=== PATIENT | female | born 1935 | race Caucasian/White ===

== ENCOUNTER → 2017-12-30 09:09 | Outpatient (CLI) | payer MEDICARE, SELFPAY ==
[2017-12-30 11:57] LABS: Absolute Lymphocyte Count 1.33 X10^3/ul (0.83-4.51); Absolute Neutrophil Count 4.4 X10^3/uL (2.0-7.7); Basophil# 0.02 X10^3/uL; Basophil% 0.3 % (0-1); Eosinophil# 0.33 X10^3/uL; Eosinophils% 4.9 % (0-5); Hematocrit 40.1 % (37-47); Hemoglobin 12.5 g/dl (12.0-15.0); Lymphocyte # 1.33 X10^3/ul (4.0); Lymphocyte % 19.8 % (19-41); Mean Corp Hgb Conc 31.2 g/gl (32-36); Mean Corpuscular Hgb 30.6 pg (27.0-32.0); Mean Platelet Vol. 12.3 fl (6.2-12.0); Monocyte# 0.63 X10^3/uL; Monocyte% 9.4 % (0-10); Neutrophil # 4.39 X10^3/uL (2.7-7.7); Neutrophil % 65.5 % (47-70); Platelet Count 205 K/mm3 (150-450); RBC Distribution Width CV 13.6 % (11.6-14.6); RBC Distribution Width SD 48.2 fl (35.1-43.9); Red Blood Count 4.09 M/mm3 (4.2-5.4); White Blood Count 6.7 K/mm3 (4.4-11.0)
[2017-12-30 12:00] LABS: POSITIVE COUNT NO; POSITIVE DIFFERENTIAL NO; POSITIVE MORPHOLOGY NO
[2017-12-30 12:26] LABS: AST(SGOT) 15 U/L (15-37); Alanine Aminotransfer ALT/SGPT 21 U/L (13-56); Albumin, Serum 3.9 g/dL (3.2-5.0); Alkaline Phosphatase 88 U/L (45-117); Anion Gap 7 (5-15); BUN 31 mg/dL (7-18); BUN/Creat Ratio 16.1 RATIO (10-20); Chloride 107 mmol/L (98-107); Cholesterol 167 mg/dL (200); Creatinine, Serum 1.93 mg/dL (0.55-1.02); EST Glomerular Filtration Rate 27 mL/min (>60); Est Glom Filt Rate - Afr Amer 32 mL/min (>60); Ferritin 172 ng/mL (8-252); Globulin 3.9 g/dL (2.2-4.2); Glucose 87 mg/dL (74-106); High Density Lipoprotein 63 mg/dL; Potassium 4.6 mmol/L (3.5-5.1); Protein, Total 7.8 g/dL (6.4-8.2); Sodium Level 140 mmol/L (136-145); T4 Free Direct 1.34 ng/dL (0.76-1.46); Thyroid Stim Hormone (TSH) 3.76 uIU/mL (0.358-3.74); Triglycerides 94 mg/dL; Very Low Density Lipoprotein 19 mg/dL (5-40)
[2017-12-30 13:48] LABS: Microalbumin,Random Urine 12.1 mg/L (NO RANGE EST.); Microalbumin:Creatinine Ratio 31.4 mg/g CRE (<30 mg/g CRE)
== END ==
PROVIDERS: Family Provider Family Medicine; PCP Family Medicine; Visit Provider Family Medicine
DX: I10 Essential (primary) hypertension (principal); E78.00 Pure hypercholesterolemia, unspecified; E03.9 Hypothyroidism, unspecified; R68.89 Other general symptoms and signs
CPT/HCPCS: 36415; 80053; 80061; 82043; 82570; 82728; 84439; 84443; 85025

== ENCOUNTER → 2018-04-16 07:55 | Outpatient (CLI) | payer MEDICARE, SELFPAY ==
--- NOTE | 2018-04-16 08:05 | CDU_ITS ---
Reason For Study: Carotid bruit Rt. Velocities/BP Lt. Velocities/BP Prox CCA 69.2/11.0 cm/sec. Prox CCA 78.6/10.6 cm/sec. Mid CCA 57.5/12.3 cm/sec. Mid CCA 80.3/16.4 cm/sec. Dist CCA 62.1/11.7 cm/sec. Dist CCA 61.0/15.2 cm/sec. Prox ICA 297.0/66.0 cm/sec. Prox ICA 326.0/65.5 cm/sec. Mid ICA 157.0/39.3 cm/sec. Mid ICA 134.0/22.0 cm/sec. Dist ICA 69.2/17.0 cm/sec. Dist ICA 92.7/20.2 cm/sec. Rt. ICA/CCA = 5.2. Lt. ICA/CCA = 4.0. Prox ECA 108.0/7.0 cm/sec. Prox ECA 222.0/20.4 cm/sec. Rt. Vert. 54.5/11.7 cm/sec. Lt. Vert. 48.3/13.4 cm/sec. Right Extracranial There is intimal thickening but no significant atherosclerotic plaque noted in the right common carotid artery. There is heterogeneous, irregular atherosclerotic plaque noted in the right internal carotid artery. There is heterogeneous, irregular atherosclerotic plaque noted in the right external carotid artery. Antegrade flow is noted in the right vertebral artery. Left Extracranial There is heterogeneous, irregular atherosclerotic plaque noted in the left common carotid artery. There is heterogeneous, irregular atherosclerotic plaque noted in the left internal carotid artery. There is heterogeneous, irregular atherosclerotic plaque noted in the left external carotid artery. Antegrade flow is noted in the left vertebral artery. Procedure Carotid Duplex [id number]. Exam performed in department. Interpretation Summary Severe (>70%) stenosis right extracranial internal carotid. Severe (>70%) stenosis left extracranial internal carotid. Flow within the vertebral arteries is antegrade bilaterally. Ordering Physician: NATALEE ARROYO Referring Physician: Gilberto Moore MD Performed By: Kecia Mansfield RVT
== END ==
PROVIDERS: Family Provider Family Medicine; PCP Family Medicine; Visit Provider Surgery Vascular Surgery
DX: R09.89 Other specified symptoms and signs involving the circulatory and respiratory systems (principal)
CPT/HCPCS: 93880

== ENCOUNTER 2018-09-28 05:07 | Emergency (ER) | payer MEDICARE, SELFPAY ==
[2018-09-28 05:08] VITALS: BP 171/157; PULSE 58; RESP 16; TEMP 36.6; O2SAT 97; BMI 27.4
--- NOTE | 2018-09-28 05:24 | CT_ITS ---
STUDY: CT ABDOMEN AND PELVIS WITHOUT CONTRAST REASON FOR EXAM: Female, 83 years old. Mid upper abdominal pain after moving would. RADIATION DOSAGE (If Supplied By Facility): CTDIvol = ( 7.13 ) mGy, DLP = ( 336.77 ) mGycm TECHNIQUE: Transaxial images were obtained from the dome of the diaphragm to the symphysis pubis without oral contrast, and without intravenous contrast. Sagittal and coronal images were reconstructed. Individualized dose optimization techniques were used for this CT. COMPARISON: 11/02/2013 and 05/09/2016. FINDINGS: There is a chronic right posterior diaphragmatic hernia with upper extension of fat, but no bowel. There is mild fibrosis or atelectasis in the visualized lung bases. The heart is enlarged. There are coronary artery calcifications. There is elongation of the right lobe of the liver consistent with a Caitlin's lobe. There is small calcified gallstones in an otherwise grossly normal-appearing gallbladder. There is no demonstrated bile duct dilatation. Normal spleen. There are pancreatic calcifications in the distribution of the ducts consistent with chronic pancreatitis. Normal bilateral adrenal glands. The right kidney is severely atrophic. There is mild hydronephrosis of the left kidney, which is also present on both of the previous studies. There is no demonstrated urinary calculus and there is no demonstrated hydroureter. Finding is most likely due to a low-grade chronic ureteropelvic junction obstruction. There is a small hiatal hernia. Assessment of the stomach is otherwise limited by nondistention. Normal small intestine. There are multiple colonic diverticula consistent with diverticulosis. The appendix is seen on axial images 96-99 and it appears normal. There is an infrarenal abdominal aortic aneurysm with maximal AP diameter of 3.3 cm, stable in size and appearance. There is a stent in the abdominal aorta and there are bilateral aortic-common iliac artery stents, which are stable in appearance. Normal inferior vena cava. Normal retroperitoneum. Normal urinary bladder. There is absence of the uterus consistent with a prior hysterectomy. Normal abdominal wall. There is an old compression fracture of the L1 vertebral body, stable in appearance. There are multilevel degenerative changes in the visualized spine. CT/Abdomen/Pelvis without Cont IMPRESSION: Redemonstration of an abdominal aortic aneurysm, with placement of an aortic-bilateral iliac artery stent. The appearance is stable. Chronic pancreatitis, without evidence for acute pancreatitis. Small hiatal hernia. Colonic diverticulosis, without evidence for acute diverticulitis. Severely atrophic right kidney. Mild hydronephrosis of the left kidney without demonstrated urinary calculus. The appearance is stable and this is probably due to a chronic low-grade UPJ obstruction. Gallstones in an otherwise grossly normal-appearing gallbladder. Previous hysterectomy. Right posterior diaphragmatic hernia with upward extension of fat, but no bowel. No evidence for acute pathology. Electronically Signed: Primitivo Pappas MD at 6:22 EST , Service support ,
[2018-09-28] MEDS: Ondansetron 4 MG/2 ML Vial IV (05:31)
[2018-09-28] MEDS: Morphine 2 MG/ML Syringe IV (05:32)
--- NOTE | 2018-09-28 05:33 | ED.DCSUM_ITS ---
- ER Visit Summary Date of Service: 09/28/18 Chief Complaint: Abdominal pain History of Present Illness: The patient is a 83 F presenting with abdominal pain. Patient states that she has been carrying wood for a wood burning stove for the past week. She states that when she sits up she has pain in her abdomen and back. No direct trauma. She denies nausea or vomiting. Denies diarrhea or constipation. Denies chest pain or shortness of breath. Denies fever. Denies headache. Denies other complaints. Physical Examination: Vitals are stable. Patient is afebrile. Alert no acute distress. HEENT exam is unremarkable. Neck is supple. Lungs are clear and equal bilaterally. Heart is regular rate and rhythm. Abdomen is soft nontender nondistended. No guarding or rebound Back: nontender Extremities are unremarkable. Skin is warm and dry. No focal neurologic deficit. Remainder of exam is unremarkable. Emergency Department Course and Treatment: Patient is given morphine, Zofran. CBC, chemistries unremarkable. BUN 26, creatinine 1.58 which is at her baseline. CT abdomen pelvis shows no acute process, abdominal aortic aneurysm is stable. Patient states she has no pain when she is laying still. When she tries to sit up she has pain in her abdominal wall muscles. She is advised to take Tylenol. Advised to follow-up with her primary care physician. Advised return to ED if worsening points Disposition: Discharge home Impression: Abdominal muscle strain This note was generated with [employer] dictation software. It may contain incorrect words, spelling, and punctuation that were not noted in review of the chart prior to signing ED Disposition - Plan for ED Patient: Chief Complaint: Abd Pain Referrals: Gilberto Moore MD [Primary Care Provider] -
[2018-09-28 05:50] LABS: Absolute Lymphocyte Count 1.49 X10^3/ul (0.83-4.51); Absolute Neutrophil Count 4.1 X10^3/uL (2.0-7.7); Basophil# 0.03 X10^3/uL; Basophil% 0.5 % (0-1); Eosinophil# 0.31 X10^3/uL; Eosinophils% 4.7 % (0-5); Hematocrit 37.4 % (37-47); Hemoglobin 11.8 g/dl (12.0-15.0); Lymphocyte # 1.49 X10^3/ul (4.0); Lymphocyte % 22.6 % (19-41); Mean Corp Hgb Conc 31.6 g/gl (32-36); Mean Corpuscular Hgb 31.5 pg (27.0-32.0); Mean Corpuscular Volume 99.7 fL (81-99); Monocyte# 0.62 X10^3/uL; Monocyte% 9.4 % (0-10); Neutrophil # 4.13 X10^3/uL (2.7-7.7); Neutrophil % 62.5 % (47-70); Platelet Count 194 K/mm3 (150-450); RBC Distribution Width CV 14.6 % (11.6-14.6); Red Blood Count 3.75 M/mm3 (4.2-5.4); White Blood Count 6.6 K/mm3 (4.4-11.0)
[2018-09-28 05:53] LABS: POSITIVE COUNT NO; POSITIVE DIFFERENTIAL NO; POSITIVE MORPHOLOGY NO
[2018-09-28 06:02] LABS: Anion Gap 7 (5-15); BUN 26 mg/dL (7-18); BUN/Creat Ratio 16.5 RATIO (10-20); Calcium,Total 9.3 mg/dL (8.5-10.1); Chloride 110 mmol/L (98-107); Creatinine, Serum 1.58 mg/dL (0.55-1.02); EST Glomerular Filtration Rate 33 mL/min (>60); Est Glom Filt Rate - Afr Amer 40 mL/min (>60); Estimated Creatinine Clearance 23.71 ml/min; Glucose 96 mg/dL (74-106); Potassium 4.5 mmol/L (3.5-5.1); Sodium Level 145 mmol/L (136-145)
--- NOTE | 2018-09-28 06:41 | ED.DEP ---
ED Disposition - Plan for ED Patient: Chief Complaint: Abd Pain Instructions: ED Strain Abdominal Muscle Referrals: Gilberto Moore MD [Primary Care Provider] -
[2018-09-28 06:55] VITALS: BP 136/53
[2018-09-28 07:08] VITALS: BP 154/56; PULSE 78; RESP 16; O2SAT 96
== END 2018-09-28 07:10 | disposition home or self-care (01) ==
LOC: ED 05:36
PROVIDERS: Emergency Provider Emergency Medicine; Family Provider Family Medicine; PCP Family Medicine
DX: S39.011A Strain of muscle, fascia and tendon of abdomen, initial encounter (principal); X50.9XXA Other and unspecified overexertion or strenuous movements or postures, initial encounter; Y93.9 Activity, unspecified; Y92.9 Unspecified place or not applicable; Y99.9 Unspecified external cause status; I71.4 Abdominal aortic aneurysm, without rupture; I10 Essential (primary) hypertension; Z79.899 Other long term (current) drug therapy; Z90.710 Acquired absence of both cervix and uterus
CPT/HCPCS: 74176; 80048; 85025; 96374; 96375; 99282; A4216; J2405

== ENCOUNTER 2018-10-04 08:22 | Inpatient (IN) | payer MEDICARE, SELFPAY ==
[2018-10-04 08:24] VITALS: BP 135/62; PULSE 60; RESP 19; TEMP 36.1; O2SAT 95; BMI 27.8
--- NOTE | 2018-10-04 08:47 | EKG12_ITS ---
Test Reason : DYSRHYTHMIA Blood Pressure : / mmHG Vent. Rate : 058 BPM Atrial Rate : 058 BPM P-R Int : 180 ms QRS Dur : 084 ms QT Int : 442 ms P-R-T Axes : 072 017 044 degrees QTc Int : 433 ms Sinus bradycardia Otherwise normal ECG Confirmed by FEDERICA ALLEN, KANDY ([id number]), editor & co founder PRAVEEN ZULETA ([id number] on 10/07/2018 11:14:33 AM Referred By: YULIYA Confirmed By:KANDY STALLWORTH MD
--- NOTE | 2018-10-04 08:53 | RAD_ITS ---
STUDY: X-RAY CHEST REASON FOR EXAM: Female, 83 years old. Weakness. Back pain x1 week. TECHNIQUE: AP upright and lateral views. COMPARISON: None. FINDINGS: Calcified granuloma in the left lower lobe. No confluent infiltrates. No suspicious pulmonary nodules. Blunting of both costophrenic sulci are due to bilateral pleural fluid and/or pleural thickening. Mild cardiomegaly. Normal mediastinum and skip. Normal visualized pulmonary arteries. Mild atherosclerotic calcifications of the thoracic aorta. Pronounced old L1 compression fracture. Moderate T8 compression fracture with at least two thirds loss of the central vertebral body height. Normal visualized ribs, clavicles, and shoulders. Endograft inside the abdominal aorta. RAD/Chest PA and Lateral IMPRESSION: 1. No acute cardiopulmonary pathology. 2. Mild cardiomegaly. 3. Minimal bilateral pleural fluid versus bilateral pleural thickening. Decubitus chest will help clarify if desired. 4. Moderate T8 compression fracture with at least two thirds loss of the central vertebral body height. Age is indeterminate. CT will help clarify if kyphoplasty is a therapeutic consideration. 5. Pronounced old L1 compression fracture. Electronically Signed: Tristan Soriano MD at 9:47 EST , Service support ,
--- NOTE | 2018-10-04 08:57 | ED.DCSUM_ITS ---
- ER Visit Summary Date of Service: 10/04/18 Chief Complaint: Generalized weakness History of Present Illness: The patient is a 83 F history of hypertension, repaired AAA, hiatal hernia, atrophic kidney. Patient states she has had generalized weakness. She was seen in the ER about a week ago and workup was essentially unremarkable. She has had some nausea and vomiting. States that her tongue is blue and what she actually means is there is bruising on the left side of her. She is on no blood thinners. Denies any bruising to her skin. No melena, nosebleeds or hematuria. She denies any dysuria. She denies any fever. States that she is a wood burning stove at home she closed it with another time recently pulled a muscle in the right side of her back. Initially she was on a muscle relaxant her primary care physician's office is now recently is that to [facility]. Physical Examination: Elderly female no acute distress. Accompanied by family. Vital signs are stable and afebrile. Initial blood pressure 135/62. H EENT exam the left side of her tongue is bruised. There are no lacerations. Pupils are round reactive light. No facial droop. Neck nontender. No lymphadenopathy. Lungs clear to auscultation bilaterally. Heart regular rate and rhythm rate about 60. No murmur. Chest wall nontender. Abdomen is soft and nontender. Normal bowel sounds. No peritoneal signs. Nondistended. No right upper quadrant pain. She is moving all 4 extremities. They are neurovascularly intact. She has equal symmetrical family court justice strength. Dorsi and plantar flexion are intact. Calves are nontender without edema or cords. Back she has trouble sitting up due to pain on the right side of her back on the paraspinal soft tissue. There is no ecchymosis or bruising. There are no gross bony deformities to her back. Neurologically she is awake she is alert. She is answering questions and following commands. She has no focal motor deficits. Test Results: Two-view chest x-ray shows chronic changes. Left lower lobe atelectasis. No acute process. Awaiting radiology interpretation. EKG sinus rhythm rate of 58 no signs of ischemia. CBC shows a white count of 15.7. Hemoglobin of 12. Electrolytes show sodium of 126. Anion gap of 20. BUN of 94 and a creatinine of 8.0. Her most recent creatinine 6 days ago was 1.5. Liver enzymes are unremarkable and UA is pending. Emergency Department Course and Treatment: Elderly female with generalized weakness. Patient will be given IV bolus of saline. Treatment Plan: Patient is in new onset acute renal failure. I have already spoken to the hospitalist Dr. Gilberto Branch and he will be down no admit the patient. Disposition: admission Impression: Acute generalized weakness Acute new onset renal failure Hyponatremia Right back pain This note was generated with [employer] dictation software. It may contain incorrect words, spelling, and punctuation that were not noted in review of the chart prior to signing ED Disposition - Plan for ED Patient: Chief Complaint: Weakness Referrals: Gilberto Moore MD [Primary Care Provider] -
[2018-10-04 09:09] LABS: Absolute Lymphocyte Count 0.68 X10^3/ul (0.83-4.51); Absolute Neutrophil Count 13.4 X10^3/uL (2.0-7.7); Hematocrit 37.8 % (37-47); Hemoglobin 12.8 g/dl (12.0-15.0); Lymphocyte # 0.68 X10^3/ul (4.0); Lymphocyte % 4.3 % (19-41); Mean Corp Hgb Conc 33.9 g/gl (32-36); Mean Corpuscular Hgb 31.1 pg (27.0-32.0); Monocyte# 1.68 X10^3/uL; Monocyte% 10.7 % (0-10); Neutrophil # 13.35 X10^3/uL (2.7-7.7); Neutrophil % 84.8 % (47-70); POSITIVE COUNT NO; POSITIVE DIFFERENTIAL YES; POSITIVE MORPHOLOGY NO; Platelet Count 263 K/mm3 (150-450); RBC Distribution Width CV 13.9 % (11.6-14.6); RBC Distribution Width SD 46.6 fl (35.1-43.9); Red Blood Count 4.11 M/mm3 (4.2-5.4); White Blood Count 15.7 K/mm3 (4.4-11.0)
[2018-10-04] MEDS: HYDROcodone Bitartrate/Apap 5/325 Tablet PO (09:09)
[2018-10-04 09:10] LABS: Differential Indicated SCAN CRITERIA MET
[2018-10-04] MEDS: Ondansetron 4 MG/2 ML Vial IV ×2 (09:15→18:15)
[2018-10-04 09:33] LABS: AST(SGOT) 70 U/L (15-37); Alanine Aminotransfer ALT/SGPT 48 U/L (13-56); Albumin, Serum 2.9 g/dL (3.2-5.0); Alkaline Phosphatase 53 U/L (45-117); Anion Gap 20 (5-15); BUN 94 mg/dL (7-18); BUN/Creat Ratio 11.6 RATIO (10-20); Bilirubin, Direct 0.15 mg/dL (0.00-0.30); Chloride 84 mmol/L (98-107); Creatinine, Serum 8.08 mg/dL (0.55-1.02); EST Glomerular Filtration Rate 5 mL/min (>60); Est Glom Filt Rate - Afr Amer 6 mL/min (>60); Estimated Creatinine Clearance 4.64 ml/min; Globulin 4.2 g/dL (2.2-4.2); Glucose 140 mg/dL (74-106); Potassium 4.6 mmol/L (3.5-5.1); Protein, Total 7.1 g/dL (6.4-8.2); Sodium Level 126 mmol/L (136-145)
--- NOTE | 2018-10-04 09:34 | ED.RN ---
LAB RESULTED CREATININE 8.08, PHYSICIAN NOTIFIED
[2018-10-04] MEDS: Morphine 4 MG/ML Syringe IV (10:06)
[2018-10-04] MEDS: 0.9% Normal Saline 1,000 ML 999 ML IV ×2 (10:06→10:07)
--- NOTE | 2018-10-04 10:43 | US_ITS ---
STUDY: RENAL ULTRASOUND - COMPLETE REASON FOR EXAM: Female, 83 years old. Acute renal insufficiency. TECHNIQUE: Ultrasound evaluation of the kidneys was performed with real-time and static diamond-scale imaging. COMPARISON: CT of the abdomen and pelvis dated September 28, 2018. FINDINGS: RIGHT KIDNEY: Right kidney was difficult to visualize secondary to severe renal atrophy. . DISTAL RIGHT URETER: There is non-visualization of the distal right ureter. There is no demonstrated right ureterovesical junction calculus. There is no demonstrated right ureteral jet. LEFT KIDNEY: Normal location of the left kidney, which is normal in size. The left kidney measures 10.4 x 5.7 x 4.2 cm. There is a normal cortex of the left kidney. The renal cortex measures 1.6 cm. There is no left renal mass or cyst. There are no left renal calculi. There is no left hydronephrosis. DISTAL LEFT URETER: There is non-visualization of the distal left ureter. There is no demonstrated left ureterovesical junction calculus. There is no demonstrated left ureteral jet. AORTA: There is obscuration of the abdominal aorta by overlying bowel gas I.V.C.: The IVC is obscured. BLADDER: The urinary bladder was not visualized secondary to Hall catheter. US/Kidney and Bladder IMPRESSION: 1. Nonvisualization of the right kidney secondary to severe atrophy. 2. Normal sonographic appearance of the left kidney. Electronically Signed: Margaret Wright MD at 12:01 EST , Service support ,
[2018-10-04 11:04] VITALS: BP 164/67; PULSE 57; RESP 18; TEMP 36.6; O2SAT 94; BMI 28.6
[2018-10-04 11:20] VITALS: BMI 28.7
--- NOTE | 2018-10-04 11:53 | RAD_ITS ---
STUDY: X-RAY - ABDOMEN/PELVIS REASON FOR EXAM: Female, 83 years old. Abdominal distention with back pain TECHNIQUE: Two AP supine views of the abdomen and pelvis. COMPARISON: CT abdomen and pelvis dated 09/28/2018 FINDINGS: Questionable bibasilar airspace disease Prominent fecal retention in the right hemicolon with gaseous distended loops of transverse colon. No evidence of small bowel obstruction. There is no demonstrated free abdominal air. The visualized liver, spleen and kidneys are grossly normal in size and morphology. Normal soft tissue structures. There are diffuse degenerative changes of the visualized lumbar spine. Aortobiiliac stent graft is noted RAD/Abdomen Single View IMPRESSION: Prominent fecal retention in the right hemicolon with gaseous distended loops of transverse colon. No evidence of small bowel obstruction Electronically Signed: Sree Espinoza DO at 15:33 EST Tel , Service support ,
--- NOTE | 2018-10-04 11:54 | PCM.HP.STD ---
Problem List (1) BRENDA (acute kidney injury) Status: Acute (2) Myalgia Status: Acute (3) Abdominal distention Status: Acute (4) Hyponatremia Status: Acute History of Present Illness Date of Admission: 10/04/18 Chief Complaint: malaise. emesis. The patient is a 83 year old F who was in her normal state of health up until about a week ago. 1 week ago patient was putting wood into a furnace. Afterwards she had back pain. Patient also complained of diffuse myalgias and nausea and vomiting. She presented to the ED and was found to be hyponatremic and with BRENDA with a Creatinin of 8.08, Cr from 09/28 was 1.58. Patient would take NSAIDs rarely, but was advised to stop by her PCP. She received a script for Tramadol. Daughter has noticed bruising on the patient's tongue. Patient denies any seizure history. [] Past Medical History Past Medical History (Chronic Problems): Chronic Problems (Last Reviewed 10/04/18 @ 11:59 by Gilberto Branch DO) Abdominal aortic aneurysm (Chronic) Essential (primary) hypertension (Chronic) HLD (hyperlipidemia) (Chronic) Atherosclerosis of coronary artery of [place] heart without angina pectoris (Chronic) Medical History: Medical History (Last Reviewed 10/04/18 @ 11:59 by Gilberto Branch DO) H/O: hysterectomy (Resolved) Z90.710 Essential (primary) hypertension (Chronic) I10 HLD (hyperlipidemia) (Chronic) E78.5 Atherosclerosis of coronary artery of [place] heart without angina pectoris (Chronic) I25.10 Allergies No Known Allergies Allergy (Verified 10/04/18 08:26) Home Medications: Ambulatory Orders Medication Instructions Recorded Enalapril Maleate [Vasotec] 10 mg PO BID 10/01/14 Levothyroxine [Synthroid] 75 mcg PO DAILY 10/01/14 Pravastatin [Pravachol] 80 mg PO DAILY 10/01/14 Fenofibrate [Lofibra] 54 mg PO BID 02/26/16 Propranolol HCl [Inderal Xl (Beta 120 mg PO DAILY 02/26/16 Kaleb)] Amlodipine [Norvasc] 5 mg PO QHS 09/28/18 Amlodipine Besylate [Norvasc] 10 mg PO DAILY 10/04/18 Aspirin E.C. [Ecotrin] 81 mg PO DAILY@0800 10/04/18 Chlorella 5 capsule PO BID 10/04/18 Cholecalciferol (VIT D3) [Vitamin 1 tab PO DAILY 10/04/18 D3] Fluticasone 0.05% [Flonase Nasal 1 spray NASAL DAILY PRN 10/04/18 [place]] [place]-3/Dha/Epa/Fish Oil [Fish Oil 1 each PO BID 10/04/18 500 mg Softgel] Ubidecarenone [Coq10] 50 mg PO DAILY 10/04/18 Surgical History: Surgical History (Last Updated 10/04/18 @ 11:59 by Gilberto Branch DO) Hx of bladder repair surgery (Resolved) Z98.890 S/P AAA (abdominal aortic aneurysm) repair Z98.890, Z86.79 Psychiatric History: No pertinent psych hx Lives: Alone Smoking Status: Former smoker Tobacco Use: Non-smoker Alcohol: None Drugs: None - *Family History Maternal Family History: Family History (Last Reviewed 10/04/18 @ 11:59 by Gilberto Branch DO) Father No problems noted. Mother Breast cancer Brother No problems noted. Review of Systems Constitutional: Denies: Anorexia, Chills, Fever, Night Sweats Eyes: Denies: Blurred vision, Double vision HEENT: Denies: Head Aches, Sinus Congestion, Sinus Drainage Cardiovascular: Denies: Chest Pain, Palpitations Respiratory: Denies: Cough, Shortness of breath at rest, Sputum production Gastrointestinal: Reports: Abdominal Pain, Diarrhea, Nausea, Vomiting Genitourinary: Denies: Dysuria, Hematuria Musculoskeletal: Reports: - - diffuse myalgias. Denies: Joint Pain, Joint Tenderness Skin: Denies: Rash, Wounds Neurological: Denies: Numbness, Tingling, Focal weakness Psychiatric: Denies: Anxiety, Depression Endocrine: Denies: Change in Body Habitus, Heat/ Cold Intolerance Hematologic/ Lymphatic: Reports: Easy Bruising. Denies: Easy Bleeding, Hx of blood clot Comment: A 10 point review of systems were negative except as mentioned in the history of present illness and the other review of systems. VTE Information - Inpt Only VTE Present on Admission: No VTE Pharm Prophylaxis ordered?: Yes Patient Problems: Active and Suspected Problems (Last Reviewed 10/04/18 @ 11:59 by Gilberto Jopperi, DO) BRENDA (acute kidney injury) (Acute) Myalgia (Acute) Abdominal distention (Acute) Hyponatremia (Acute) - Physical Exam General: Alert, Cooperative, No apparent distress HEENT: Atraumatic, PERRLA, EOMI, Normocephalic Oral: Moist Mucosa, - - bruising noted on both sides of tongue Neck: No Nodes, Thyroid Normal Size and Texture Lungs: Clear to auscultation, Normal air movement, No rhonchi, No wheeze Cardiovascular: Regular rate, Regular Rhythm, Normal S1, Normal S2, No murmurs Abdomen: Bowel Sounds Present, Soft, Non Tender, No Hepato-splenomegaly, Distended Extremities: No clubbing, No cyanosis, No edema, No Calf Tenderness Skin: No rashes, No breakdown Musculoskeletal: No Tenderness to Palpation of Joints or Extremities, No Muscle Wasting Neurological: Cranial nerves II-XII grossly intact, Neuro grossly intact, Motor Exam 5/5 strength throughout Psych/Mental Status: Normal Affect, Appropriate Vital Signs Temp Pulse Resp BP Pulse Ox 36.6 C 57 L 18 164/67 H 94 10/04/18 11:04 10/04/18 11:04 10/04/18 11:04 10/04/18 11:04 10/04/18 11:04 Oxygen Flow Rate (L/min) 2 Oxygen Delivery Method Nasal Cannula Weight: 75.75 kg Body Mass Index (BMI) 28.6 Laboratory Tests Past 24 Hrs 10/04/18 10/04/18 08:55 08:55 WBC 15.7 H RBC 4.11 L Hgb 12.8 Hct 37.8 MCV 92.0 MCH 31.1 MCHC 33.9 RDW 13.9 RDW Differential 46.6 H Plt Count 263 MPV 11.0 Immature Gran % (Auto) 0.200 Neut % (Auto) 84.8 H Lymph % (Auto) 4.3 L [place] % (Auto) 10.7 H Eos % (Auto) 0.0 Baso % (Auto) 0.0 Absolute Neuts (auto) 13.4 H Absolute Lymphs (auto) 0.68 L Total Counted Not Reportable Sodium 126 L Potassium 4.6 Chloride 84 L Carbon Dioxide 22.0 Anion Gap 20 H BUN 94 H Creatinine 8.08 H* Estim Creat Clear Calc 4.64 Est GFR (MDRD) Af Amer 6 L Est GFR (MDRD) Non-Af 5 L BUN/Creatinine Ratio 11.6 Glucose 140 H Calcium 8.0 L Total Bilirubin 0.60 Direct Bilirubin 0.15 AST 70 H ALT 48 Alkaline Phosphatase 53 Total Protein 7.1 Albumin 2.9 L Globulin 4.2 Clinical Impression(s) from Imaging Studies Chest X-Ray 10/04/18 08:53 IMPRESSION: 1. No acute cardiopulmonary pathology. 2. Mild cardiomegaly. 3. Minimal bilateral pleural fluid versus bilateral pleural thickening. Decubitus chest will help clarify if desired. 4. Moderate T8 compression fracture with at least two thirds loss of the central vertebral body height. Age is indeterminate. CT will help clarify if kyphoplasty is a therapeutic consideration. 5. Pronounced old L1 compression fracture. Electronically Signed: Tristan Soriano MD at 9:47 EST , Service support , Assessment/Plan All Active Problems (Last Reviewed 10/04/18 @ 11:59 by Gilberto Branch DO) BRENDA (acute kidney injury) (Acute) Myalgia (Acute) Abdominal distention (Acute) Hyponatremia (Acute) Hx of bladder repair surgery (Resolved) H/O: hysterectomy (Resolved) 1. BRENDA dramatically worsened since the (1.58) maybe prerenal plus ATN did have a CT on the , but was without contrast Plan: IVF renal US urine studies nephrology consult hold nephrotoxic agents 2. Hyponatremia likely due to volume depletion monitor with IVF 3. Myalgias non-specific diffuse myalgias may be due to her putting wood into her furnace. However, with her tongue bruises, I am concerned about seizure Check CPK, MRI brain, EEG 4. Abdominal distention not taut on exam check an xray 5. DVT proph: heparin. Code Visit Inpatient E&M: 56089 Init Hosp L3
--- NOTE | 2018-10-04 11:59 | HP.PCM_ITS ---
Problem List (1) BRENDA (acute kidney injury) Status: Acute (2) Myalgia Status: Acute (3) Abdominal distention Status: Acute (4) Hyponatremia Status: Acute History of Present Illness Date of Admission: 10/04/18 Chief Complaint: malaise. emesis. The patient is a 83 year old F who was in her normal state of health up until about a week ago. 1 week ago patient was putting wood into a furnace. Afterwards she had back pain. Patient also complained of diffuse myalgias and nausea and vomiting. She presented to the ED and was found to be hyponatremic and with BRENDA with a Creatinin of 8.08, Cr from 09/28 was 1.58. Patient would take NSAIDs rarely, but was advised to stop by her PCP. She received a script for Tramadol. Daughter has noticed bruising on the patient's tongue. Patient denies any seizure history. [] Past Medical History Past Medical History (Chronic Problems): Chronic Problems (Last Reviewed 10/04/18 @ 11:59 by Gilberto Branch DO) Abdominal aortic aneurysm (Chronic) Essential (primary) hypertension (Chronic) HLD (hyperlipidemia) (Chronic) Atherosclerosis of coronary artery of [place] heart without angina pectoris (Chronic) Medical History: Medical History (Last Reviewed 10/04/18 @ 11:59 by Gilberto Branch DO) H/O: hysterectomy (Resolved) Z90.710 Essential (primary) hypertension (Chronic) I10 HLD (hyperlipidemia) (Chronic) E78.5 Atherosclerosis of coronary artery of [place] heart without angina pectoris (Chronic) I25.10 Allergies No Known Allergies Allergy (Verified 10/04/18 08:26) Home Medications: Ambulatory Orders Medication Instructions Recorded Enalapril Maleate [Vasotec] 10 mg PO BID 10/01/14 Levothyroxine [Synthroid] 75 mcg PO DAILY 10/01/14 Pravastatin [Pravachol] 80 mg PO DAILY 10/01/14 Fenofibrate [Lofibra] 54 mg PO BID 02/26/16 Propranolol HCl [Inderal Xl (Beta 120 mg PO DAILY 02/26/16 Kaleb)] Amlodipine [Norvasc] 5 mg PO QHS 09/28/18 Amlodipine Besylate [Norvasc] 10 mg PO DAILY 10/04/18 Aspirin E.C. [Ecotrin] 81 mg PO DAILY@0800 10/04/18 Chlorella 5 capsule PO BID 10/04/18 Cholecalciferol (VIT D3) [Vitamin 1 tab PO DAILY 10/04/18 D3] Fluticasone 0.05% [Flonase Nasal 1 spray NASAL DAILY PRN 10/04/18 Mina] [place]-3/Dha/Epa/Fish Oil [Fish Oil 1 each PO BID 10/04/18 500 mg Softgel] Ubidecarenone [Coq10] 50 mg PO DAILY 10/04/18 Surgical History: Surgical History (Last Updated 10/04/18 @ 11:59 by Gilberto Branch DO) Hx of bladder repair surgery (Resolved) Z98.890 S/P AAA (abdominal aortic aneurysm) repair Z98.890, Z86.79 Psychiatric History: No pertinent psych hx Lives: Alone Smoking Status: Former smoker Tobacco Use: Non-smoker Alcohol: None Drugs: None - *Family History Maternal Family History: Family History (Last Reviewed 10/04/18 @ 11:59 by Gilberto Branch DO) Father No problems noted. Mother Breast cancer Brother No problems noted. Review of Systems Constitutional: Denies: Anorexia, Chills, Fever, Night Sweats Eyes: Denies: Blurred vision, Double vision HEENT: Denies: Head Aches, Sinus Congestion, Sinus Drainage Cardiovascular: Denies: Chest Pain, Palpitations Respiratory: Denies: Cough, Shortness of breath at rest, Sputum production Gastrointestinal: Reports: Abdominal Pain, Diarrhea, Nausea, Vomiting Genitourinary: Denies: Dysuria, Hematuria Musculoskeletal: Reports: - - diffuse myalgias. Denies: Joint Pain, Joint Tenderness Skin: Denies: Rash, Wounds Neurological: Denies: Numbness, Tingling, Focal weakness Psychiatric: Denies: Anxiety, Depression Endocrine: Denies: Change in Body Habitus, Heat/ Cold Intolerance Hematologic/ Lymphatic: Reports: Easy Bruising. Denies: Easy Bleeding, Hx of blood clot Comment: A 10 point review of systems were negative except as mentioned in the history of present illness and the other review of systems. VTE Information - Inpt Only VTE Present on Admission: No VTE Pharm Prophylaxis ordered?: Yes Patient Problems: Active and Suspected Problems (Last Reviewed 10/04/18 @ 11:59 by Gilberto Jopperi, DO) BRENDA (acute kidney injury) (Acute) Myalgia (Acute) Abdominal distention (Acute) Hyponatremia (Acute) - Physical Exam General: Alert, Cooperative, No apparent distress HEENT: Atraumatic, PERRLA, EOMI, Normocephalic Oral: Moist Mucosa, - - bruising noted on both sides of tongue Neck: No Nodes, Thyroid Normal Size and Texture Lungs: Clear to auscultation, Normal air movement, No rhonchi, No wheeze Cardiovascular: Regular rate, Regular Rhythm, Normal S1, Normal S2, No murmurs Abdomen: Bowel Sounds Present, Soft, Non Tender, No Hepato-splenomegaly, Distended Extremities: No clubbing, No cyanosis, No edema, No Calf Tenderness Skin: No rashes, No breakdown Musculoskeletal: No Tenderness to Palpation of Joints or Extremities, No Muscle Wasting Neurological: Cranial nerves II-XII grossly intact, Neuro grossly intact, Motor Exam 5/5 strength throughout Psych/Mental Status: Normal Affect, Appropriate Vital Signs Temp Pulse Resp BP Pulse Ox 36.6 C 57 L 18 164/67 H 94 10/04/18 11:04 10/04/18 11:04 10/04/18 11:04 10/04/18 11:04 10/04/18 11:04 Oxygen Flow Rate (L/min) 2 Oxygen Delivery Method Nasal Cannula Weight: 75.75 kg Body Mass Index (BMI) 28.6 Laboratory Tests Past 24 Hrs 10/04/18 10/04/18 08:55 08:55 WBC 15.7 H RBC 4.11 L Hgb 12.8 Hct 37.8 MCV 92.0 MCH 31.1 MCHC 33.9 RDW 13.9 RDW Differential 46.6 H Plt Count 263 MPV 11.0 Immature Gran % (Auto) 0.200 Neut % (Auto) 84.8 H Lymph % (Auto) 4.3 L [place] % (Auto) 10.7 H Eos % (Auto) 0.0 Baso % (Auto) 0.0 Absolute Neuts (auto) 13.4 H Absolute Lymphs (auto) 0.68 L Total Counted Not Reportable Sodium 126 L Potassium 4.6 Chloride 84 L Carbon Dioxide 22.0 Anion Gap 20 H BUN 94 H Creatinine 8.08 H* Estim Creat Clear Calc 4.64 Est GFR (MDRD) Af Amer 6 L Est GFR (MDRD) Non-Af 5 L BUN/Creatinine Ratio 11.6 Glucose 140 H Calcium 8.0 L Total Bilirubin 0.60 Direct Bilirubin 0.15 AST 70 H ALT 48 Alkaline Phosphatase 53 Total Protein 7.1 Albumin 2.9 L Globulin 4.2 Clinical Impression(s) from Imaging Studies Chest X-Ray 10/04/18 08:53 IMPRESSION: 1. No acute cardiopulmonary pathology. 2. Mild cardiomegaly. 3. Minimal bilateral pleural fluid versus bilateral pleural thickening. Decubitus chest will help clarify if desired. 4. Moderate T8 compression fracture with at least two thirds loss of the central vertebral body height. Age is indeterminate. CT will help clarify if kyphoplasty is a therapeutic consideration. 5. Pronounced old L1 compression fracture. Electronically Signed: Tristan Soriano MD at 9:47 EST , Service support , Assessment/Plan All Active Problems (Last Reviewed 10/04/18 @ 11:59 by Gilberto Branch DO) BRENDA (acute kidney injury) (Acute) Myalgia (Acute) Abdominal distention (Acute) Hyponatremia (Acute) Hx of bladder repair surgery (Resolved) H/O: hysterectomy (Resolved) 1. BRENDA * dramatically worsened since the (1.58) * maybe prerenal plus ATN * did have a CT on the , but was without contrast * Plan: * IVF * renal US * urine studies * nephrology consult * hold nephrotoxic agents 2. Hyponatremia * likely due to volume depletion * monitor with IVF 3. Myalgias * non-specific * diffuse myalgias may be due to her putting wood into her furnace. However, with her tongue bruises, I am concerned about seizure * Check CPK, MRI brain, EEG 4. Abdominal distention * not taut on exam * check an xray 5. DVT proph: heparin. Code Visit Inpatient E&M: 86253 Init Hosp L3
[2018-10-04 15:33] VITALS: BP 140/77; PULSE 55; RESP 18; TEMP 36.6; O2SAT 98
[2018-10-04] MEDS: Bisacodyl 5 MG Tablet PO (15:38)
[2018-10-04] MEDS: Heparin Injection (Vial) 5,000 UNIT/ML VIAL 5000 UNIT SC (15:38)
[2018-10-04] MEDS: Acetaminophen 325 MG Tablet 650 MG PO (15:38)
[2018-10-04] MEDS: Propranolol LA 60 MG Capsule 120 MG PO (15:39)
[2018-10-04 15:40] VITALS: O2SAT 96
--- NOTE | 2018-10-04 18:04 | NURSING ---
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 nurse to room. pt sounds wet in her throat, lungs cta, diminished bases. asked pt to cough to clear throat, states she is unable to cough/clear her throat, points to upper sternum/throat area of discomfort. pt slightly diaphoretic, denies jaw/chest/neck pain. pt states she is unable to cough from pain and feels like she is bloated in her abd. pt with slight emesis/spitting. strands of dark red in in emesis. states is having burning in her chest and epigastric chest pain. emesis emptied into toilet for further visualization, some small amount of dark red/coffee ground looking flecks in it. dr lowery aware orders received.
[2018-10-04 18:10] VITALS: BP 165/79; PULSE 58; RESP 20; TEMP 36.6; O2SAT 95
--- NOTE | 2018-10-04 18:11 | EKG12_ITS ---
Test Reason : Blood Pressure : / mmHG Vent. Rate : 058 BPM Atrial Rate : 058 BPM P-R Int : 180 ms QRS Dur : 086 ms QT Int : 456 ms P-R-T Axes : 081 000 014 degrees QTc Int : 447 ms Sinus bradycardia Otherwise normal ECG When compared with ECG of 04-OCT-2018 08:57, MANUAL COMPARISON REQUIRED, DATA IS UNCONFIRMED Confirmed by FEDERICA ALLEN, KANDY ([id number]), editor sound PRAVEEN ZULETA ([id number]) on 10/07/2018 11:36:03 AM Referred By: FADIA Confirmed By:KANDY STALLWORTH MD
[2018-10-04] MEDS: 0.9% NaCl Peripheral Flush Adult/Peds IV (18:15)
[2018-10-04] MEDS: 0.9% Normal Saline 1,000 ML 125 ML IV (18:21)
[2018-10-04 20:28] VITALS: BP 146/74; PULSE 59; RESP 18; TEMP 36.3; O2SAT 92
[2018-10-04 23:54] LABS: Bacteria 0 SEEN /hpf (None Seen); Mucous, Urine 0 SEEN /hpf (<or=2+); Red Blood Cells-Urine 0 SEEN /hpf (0-5)
[2018-10-04 23:58] LABS: Color, Urine Yellow (Yellow); Glucose, Dipstick 50 mg/dl (Normal); Ketone-Dipstick Negative (Negative); Leukocyte Esterase-Dipstick 25 /ul (Negative); Nitrite-Dipstick Negative (Negative); Occult Blood-Urine 25 /ul (Negative); Protein-Dipstick 100 mg/dl (Negative); Urine Bilirubin Dipstick Negative (Negative); Urine Clarity Clear (Clear); Urine Urobilinogen Normal (Normal); Urine pH 6.5 (5.0 - 8.0)
[2018-10-05 00:07] LABS: Squamous Epithelial Cells - UA 25-50 SEEN /hpf (5-10); White Blood Cells 10-25 SEEN /hpf (0-5)
[2018-10-05 00:08] LABS: Urine Sodium 63 mmol/L (Not Establ.)
[2018-10-05 02:38] VITALS: BP 158/86; PULSE 67; RESP 18; TEMP 36.6; O2SAT 94
[2018-10-05] MEDS: 0.9% Normal Saline 1,000 ML 125 ML IV (02:53)
--- NOTE | 2018-10-05 03:29 | PCM.HOSP.N ---
Hospitalist Note Nurse called me that patient has about 150 mL on bladder scan in the morning today and earlier 150 mL last night about 8:50 PM. Patient has oliguria. The patient is being admitted with acute kidney injury of creatinine 8.08, last creatinine from 09/28 was 1.58. UA was positive of pyuria, WBC 10-25 cells, squamous epithelial cells 25-50 cells, LE 25, bacteria 0 although not convincing for UTI but started on IV ceftriaxone with repeat UA and urine culture ordered. Kidneys and bladder ultrasound is ordered. Nephrology consult. Urine studies for electrolytes, protein random, creatinine, BUN and eosinophils have been ordered. Hall catheter ordered to restrict monitoring of urine output. Follow-up urine studies, urine culture.
[2018-10-05 04:25] LABS: Bacteria 0 SEEN /hpf (None Seen); Mucous, Urine 0 SEEN /hpf (<or=2+); Red Blood Cells-Urine 0 SEEN /hpf (0-5); Squamous Epithelial Cells - UA 0 SEEN /hpf (5-10); White Blood Cells 0 SEEN /hpf (0-5)
[2018-10-05] MEDS: Ceftriaxone 1 GM/50 ML BAG IV ×2 (04:31→21:37)
[2018-10-05 04:37] LABS: Color, Urine Yellow (Yellow); Glucose, Dipstick 50 mg/dl (Normal); Ketone-Dipstick Negative (Negative); Leukocyte Esterase-Dipstick Negative /ul (Negative); Nitrite-Dipstick Negative (Negative); Occult Blood-Urine 25 /ul (Negative); Protein-Dipstick 100 mg/dl (Negative); Urine Bilirubin Dipstick Negative (Negative); Urine Chloride 17 mmol/L (Not Establ.); Urine Clarity Clear (Clear); Urine Sodium 65 mmol/L (Not Establ.); Urine Urobilinogen Normal (Normal); Urine pH 6.5 (5.0 - 8.0)
[2018-10-05 04:42] LABS: Urea Nitrogen, Urine 402 mg/dL (NO RANGE EST.)
[2018-10-05 04:48] LABS: Protein, Urine (Random) 126.6 mg/dL (<11.9)
[2018-10-05 04:53] LABS: Osmolality, Urine 312 mOsm/KG
[2018-10-05 06:35] LABS: Absolute Lymphocyte Count 0.58 X10^3/ul (0.83-4.51); Absolute Neutrophil Count 8.9 X10^3/uL (2.0-7.7); Hematocrit 29.9 % (37-47); Hemoglobin 9.8 g/dl (12.0-15.0); Lymphocyte # 0.58 X10^3/ul (4.0); Lymphocyte % 5.6 % (19-41); Mean Corp Hgb Conc 32.8 g/gl (32-36); Mean Corpuscular Hgb 30.8 pg (27.0-32.0); Mean Platelet Vol. 11.3 fl (6.2-12.0); Monocyte# 0.92 X10^3/uL; Monocyte% 8.8 % (0-10); Neutrophil # 8.89 X10^3/uL (2.7-7.7); Neutrophil % 85.4 % (47-70); Platelet Count 231 K/mm3 (150-450); RBC Distribution Width CV 13.9 % (11.6-14.6); RBC Distribution Width SD 48.1 fl (35.1-43.9); Red Blood Count 3.18 M/mm3 (4.2-5.4); White Blood Count 10.4 K/mm3 (4.4-11.0)
[2018-10-05 06:42] LABS: Differential Indicated SCAN CRITERIA MET; POSITIVE COUNT NO; POSITIVE DIFFERENTIAL YES; POSITIVE MORPHOLOGY YES
[2018-10-05 06:50] LABS: Differential Comment SCANNED
[2018-10-05 06:51] LABS: Anion Gap 20 (5-15); BUN 113 mg/dL (7-18); BUN/Creat Ratio 13.8 RATIO (10-20); Calcium,Total 6.4 mg/dL (8.5-10.1); Chloride 94 mmol/L (98-107); EST Glomerular Filtration Rate 5 mL/min (>60); Est Glom Filt Rate - Afr Amer 6 mL/min (>60); Estimated Creatinine Clearance 4.57 ml/min; Glucose 70 mg/dL (74-106); Sodium Level 130 mmol/L (136-145)
[2018-10-05 07:01] LABS: Osmolality, Serum 295 mOsm/KG (280-301)
--- NOTE | 2018-10-05 07:11 | MRI_ITS ---
STUDY: MRI BRAIN WITHOUT CONTRAST REASON FOR EXAM: Female, 83 years old. confusion -- ? seizure. TECHNIQUE: Standardized multiplanar fat and water weighted pulse sequences were obtained. COMPARISON: None. FINDINGS: There is moderate cerebral atrophy with widening of the extra-axial spaces and ventricular dilatation. There are a limited number of small white matter hyperintensities, distributed throughout the deep white matter tracts of the cerebral hemispheres, consistent with mild chronic white matter ischemic changes. Normal bilateral basal ganglia. Normal thalami. There is no extra-axial fluid accumulation. Normal flow voids within the major intracranial circulation suggesting patency by spin echo criteria. Normal sella turcica, pituitary gland, infundibular stalk, optic chiasm and hypothalamus. Normal tectal plate and pineal gland. There are chronic white matter ischemic changes of the [place]. The midbrain and medulla are otherwise normal. Normal cerebellum. Normal basal cisterns. Normal bilateral temporal bones. Normal bilateral internal auditory canals. MRI/Brain without Contrast IMPRESSION: No acute intracranial abnormality or evidence of masses. Electronically Signed: Ashlie Herrera MD at 12:42 EST Tel , Service support ,
[2018-10-05 07:55] VITALS: PULSE 59; RESP 16; O2SAT 92
[2018-10-05 08:20] VITALS: BP 96/47; PULSE 59; RESP 16; TEMP 36.2; O2SAT 92
--- NOTE | 2018-10-05 08:39 | NURSING ---
Voicemail left for daughter as MRI questionnaire needs filled out.
--- NOTE | 2018-10-05 08:51 | EEG ---
- Electroencephalogram This is an 18 channel electroencephalogram performed utilizing the International 10-20 electrode placement protocol as well as EKG reference leads, photic stimulation and hyperventilation on this 83-year-old female with a history of tongue biting which the patient attributes to dentures. Background activity is 9 Hz symmetrically in the posterior leads which attenuates with eye-opening. Hyperventilation is performed but was limited to 1 minute due to poor effort. The hyperventilation phase and post-hyperventilation phase are unremarkable. Wakefulness and sleep were recorded without lateralizing or epileptiform changes. Photic stimulation generates a normal symmetric driving response in the posterior leads. Impression: Normal awake and asleep electroencephalogram.
--- NOTE | 2018-10-05 11:04 | PCM.CONS.R ---
Problem List (1) BRENDA (acute kidney injury) Status: Acute Consultation - Renal PCP/ Referring MD: Requesting physician: [] Primary care physician: Gilberto Moore - History of Present Illness History of Present Illness: The patient is a 83 year old F presented with a one-week history of back pain, nausea vomiting and diffuse myalgia. In the emergency room creatinine was found to be 8.08 mg/dL. Patient's creatinine at baseline is around 1.5 mg deciliter . X-ray shows T8 compression fracture of undetermined age. Renal team was consulted to help in acute kidney injury management . Patient is oliguric . Bladder scan shows 150 cc . Hall catheter was placed last night. Patient had only 150 cc urine output. patient received 2 L of normal saline yesterday. UA showed 114, 25 occult blood, and leukocyte esterase. Patient started and ceftriaxone for presumed UTI diagnosis. I reviewed patient's home medications. Patient was taken enalapril 10 mg twice a day and Norvasc 10 mg p.o. daily . Enalapril is on hold now due to kidney injury. Patient was kept on Norvasc 10 mg p.o. daily. Patient states she took a few of ibuprofen last week. Patient had CAT scan done on September 28 which shows severely atrophic right kidney and mild hydronephrosis in the left side. Review of systems: 12 systems review is negative except severe right flank pain and right lower back pain [] - Allergies Allergies: Allergies No Known Allergies Allergy (Verified 10/04/18 08:26) - Current Medications Current Medications: Current Medications Acetaminophen (Tylenol) 650 mg PO Q4H PRN PRN PRN Reason: PAIN Last Admin: 10/04/18 15:38 Dose: 650 mg Amlodipine Besylate (Norvasc) 10 mg PO DAILY [facility] Last Admin: 10/05/18 08:27 Dose: Not Given Bisacodyl (Dulcolax) 5 mg PO DAILY PRN PRN Reason: Constipation Last Admin: 10/04/18 15:38 Dose: 5 mg Cholecalciferol (Vitamin D) 1,000 unit PO DAILY [facility] Last Admin: 10/05/18 08:28 Dose: Not Given Fluticasone Propionate (Flonase Nasal [place]) 1 spray NASAL DAILY PRN PRN Reason: ALLERGIES Sodium Chloride () 250 mls @ 15 mls/hr IV .[id number] PRN PRN Reason: SALINE FLUSH Pantoprazole Sodium 40 mg/ (Sodium Chloride) 110 mls @ 330 mls/hr IV Q12 [facility] Last Admin: 10/05/18 08:50 Dose: 330 mls/hr Ceftriaxone Sodium (Rocephin) 1 gm in 50 mls @ 100 mls/hr IV QHS [facility] Last Admin: 10/05/18 04:31 Dose: 100 mls/hr Levothyroxine Sodium (Synthroid) 75 mcg PO DAILY@0600 [facility] Last Admin: 10/05/18 05:53 Dose: Not Given Magnesium Hydroxide (Milk Of Magnesia) 30 ml PO DAILY PRN PRN PRN Reason: Constipation Ondansetron HCl (Zofran) 4 mg IV Q6H PRN PRN PRN Reason: NAUSEA/VOMITING Last Admin: 10/04/18 18:15 Dose: 4 mg Polyethylene Glycol (Miralax) 17 gm PO DAILY [facility] Last Admin: 10/05/18 08:27 Dose: Not Given Pravastatin Sodium (Pravachol) 80 mg PO DAILY@2200 [facility] Last Admin: 10/04/18 22:35 Dose: Not Given Propranolol HCl (Inderal La) 120 mg PO DAILY [facility] Last Admin: 10/05/18 08:27 Dose: Not Given Sodium Chloride () 5 - 30 ml IV UD PRN PRN Reason: SALINE FLUSH Last Admin: 10/04/18 18:15 Dose: 10 ml - Past Medical History Past Medical History (Chronic Problems): Chronic Problems (Last Reviewed 10/04/18 @ 11:59 by Gilberto Branch DO) Abdominal aortic aneurysm (Chronic) Essential (primary) hypertension (Chronic) HLD (hyperlipidemia) (Chronic) Atherosclerosis of coronary artery of [place] heart without angina pectoris (Chronic) - Social History Smoking Status: Former smoker Alcohol: None Drugs: None - Family History Maternal Family History: Family History (Last Reviewed 10/04/18 @ 11:59 by Gilberto Branch DO) Father No problems noted. Mother Breast cancer Brother No problems noted. Patient Problems: Active and Suspected Problems (Last Reviewed 10/04/18 @ 11:59 by Gilberto Branch DO) BRENDA (acute kidney injury) (Acute) Myalgia (Acute) Abdominal distention (Acute) Hyponatremia (Acute) - Physical Exam General: Alert, Oriented x3 HEENT: Atraumatic Oral: Moist Mucosa Neck: Supple, No JVD Lungs: Clear to auscultation Cardiovascular: Regular rate, Regular Rhythm, Normal S1, Normal S2 Abdomen: Bowel Sounds Present, Soft, Non Tender, - - Right flank pain Extremities: No clubbing, No cyanosis, No edema Skin: No rashes Musculoskeletal: No Tenderness to Palpation of Joints or Extremities Lymphatic: No Cervical, Supraclavicular, or Inguinal Adenopathy Neurological: Cranial nerves II-XII grossly intact, Neuro grossly intact Psych/Mental Status: Normal Affect Vital Signs Temp Pulse Resp BP Pulse Ox 97.2 F L 59 L 16 96/47 L 92 10/05/18 08:20 10/05/18 08:20 10/05/18 08:20 10/05/18 08:20 10/05/18 08:20 Oxygen Flow Rate (L/min) 2 Oxygen Delivery Method Nasal Cannula Weight: 75.75 kg Body Mass Index (BMI) 28.6 Intake and Output for Last 24 Hours 10/03/18 10/04/18 10/05/18 23:59 23:59 23:59 Intake Total 997 / 997 1915 / 1915 Output Total 280 / 280 Balance 997 / 997 1635 / 1635 Laboratory Tests Past 24 Hrs 10/04/18 10/04/18 10/04/18 23:40 23:40 23:40 WBC RBC Hgb Hct MCV MCH MCHC RDW RDW Differential Plt Count MPV Immature Gran % (Auto) Neut % (Auto) Lymph % (Auto) Hand % (Auto) Eos % (Auto) Baso % (Auto) Absolute Neuts (auto) Absolute Lymphs (auto) Total Counted Differential Comment Eos Smear Total Cells Pending Sodium Potassium Chloride Carbon Dioxide Anion Gap BUN Creatinine Estim Creat Clear Calc Est GFR (MDRD) Af Amer Est GFR (MDRD) Non-Af BUN/Creatinine Ratio Glucose Serum Osmolality Calcium CK Isoenzymes CK-MM (CK-3) CK-MB (CK-2) CK-BB (CK-1) Urine Color Yellow Urine Clarity Clear Urine pH 6.5 Ur Specific [place] 1.010 Urine Protein 100 H Urine Glucose (UA) 50 H Urine Ketones Negative Urine Occult Blood 25 H Urine Nitrite Negative Urine Bilirubin Negative Urine Urobilinogen Normal Ur Leukocyte Esterase 25 H Urine RBC 0 SEEN Urine WBC 10-25 SEEN Ur Squamous Epith Cells 25-50 SEEN Urine Bacteria 0 SEEN Urine Mucus 0 SEEN Urine Osmolality U Random Total Protein Ur Random Sodium Urine Creatinine 49.70 Urine Potassium Urine Chloride Urine Urea Nitrogen 10/04/18 10/05/18 10/05/18 23:40 04:10 04:10 WBC RBC Hgb Hct MCV MCH MCHC RDW RDW Differential Plt Count MPV Immature Gran % (Auto) Neut % (Auto) Lymph % (Auto) Hand % (Auto) Eos % (Auto) Baso % (Auto) Absolute Neuts (auto) Absolute Lymphs (auto) Total Counted Differential Comment Eos Smear Total Cells Sodium Potassium Chloride Carbon Dioxide Anion Gap BUN Creatinine Estim Creat Clear Calc Est GFR (MDRD) Af Amer Est GFR (MDRD) Non-Af BUN/Creatinine Ratio Glucose Serum Osmolality Calcium CK Isoenzymes CK-MM (CK-3) CK-MB (CK-2) CK-BB (CK-1) Urine Color Urine Clarity Urine pH Ur Specific [place] Urine Protein Urine Glucose (UA) Urine Ketones Urine Occult Blood Urine Nitrite Urine Bilirubin Urine Urobilinogen Ur Leukocyte Esterase Urine RBC Urine WBC Ur Squamous Epith Cells Urine Bacteria Urine Mucus Urine Osmolality 312 U Random Total Protein Ur Random Sodium 63 Urine Creatinine 48.10 Urine Potassium Urine Chloride Urine Urea Nitrogen 10/05/18 10/05/18 10/05/18 04:10 04:10 04:10 WBC RBC Hgb Hct MCV MCH MCHC RDW RDW Differential Plt Count MPV Immature Gran % (Auto) Neut % (Auto) Lymph % (Auto) Hand % (Auto) Eos % (Auto) Baso % (Auto) Absolute Neuts (auto) Absolute Lymphs (auto) Total Counted Differential Comment Eos Smear Total Cells Sodium Potassium Chloride Carbon Dioxide Anion Gap BUN Creatinine Estim Creat Clear Calc Est GFR (MDRD) Af Amer Est GFR (MDRD) Non-Af BUN/Creatinine Ratio Glucose Serum Osmolality Calcium CK Isoenzymes CK-MM (CK-3) CK-MB (CK-2) CK-BB (CK-1) Urine Color Yellow Urine Clarity Clear Urine pH 6.5 Ur Specific [place] 1.010 Urine Protein 100 H Urine Glucose (UA) 50 H Urine Ketones Negative Urine Occult Blood 25 H Urine Nitrite Negative Urine Bilirubin Negative Urine Urobilinogen Normal Ur Leukocyte Esterase Negative Urine RBC 0 SEEN Urine WBC 0 SEEN Ur Squamous Epith Cells 0 SEEN Urine Bacteria 0 SEEN Urine Mucus 0 SEEN Urine Osmolality U Random Total Protein 126.6 H Ur Random Sodium 65 Urine Creatinine Urine Potassium 16.0 Urine Chloride 17 Urine Urea Nitrogen 10/05/18 10/05/18 10/05/18 04:10 05:24 05:24 WBC 10.4 RBC 3.18 L Hgb 9.8 L Hct 29.9 L MCV 94.0 MCH 30.8 MCHC 32.8 RDW 13.9 RDW Differential 48.1 H Plt Count 231 MPV 11.3 Immature Gran % (Auto) 0.200 Neut % (Auto) 85.4 H Lymph % (Auto) 5.6 L Hand % (Auto) 8.8 Eos % (Auto) 0.0 Baso % (Auto) 0.0 Absolute Neuts (auto) 8.9 H Absolute Lymphs (auto) 0.58 L Total Counted Not Reportable Differential Comment SCANNED Eos Smear Total Cells Sodium 130 L Potassium 5.0 Chloride 94 L Carbon Dioxide 16.0 L Anion Gap 20 H BUN 113 H* Creatinine 8.20 H* Estim Creat Clear Calc 4.57 Est GFR (MDRD) Af Amer 6 L Est GFR (MDRD) Non-Af 5 L BUN/Creatinine Ratio 13.8 Glucose 70 L Serum Osmolality Calcium 6.4 L* CK Isoenzymes CK-MM (CK-3) CK-MB (CK-2) CK-BB (CK-1) Urine Color Urine Clarity Urine pH Ur Specific [place] Urine Protein Urine Glucose (UA) Urine Ketones Urine Occult Blood Urine Nitrite Urine Bilirubin Urine Urobilinogen Ur Leukocyte Esterase Urine RBC Urine WBC Ur Squamous Epith Cells Urine Bacteria Urine Mucus Urine Osmolality U Random Total Protein Ur Random Sodium Urine Creatinine Urine Potassium Urine Chloride Urine Urea Nitrogen 402 10/05/18 10/05/18 05:24 05:24 WBC RBC Hgb Hct MCV MCH MCHC RDW RDW Differential Plt Count MPV Immature Gran % (Auto) Neut % (Auto) Lymph % (Auto) Hand % (Auto) Eos % (Auto) Baso % (Auto) Absolute Neuts (auto) Absolute Lymphs (auto) Total Counted Differential Comment Eos Smear Total Cells Sodium Potassium Chloride Carbon Dioxide Anion Gap BUN Creatinine Estim Creat Clear Calc Est GFR (MDRD) Af Amer Est GFR (MDRD) Non-Af BUN/Creatinine Ratio Glucose Serum Osmolality 295 Calcium CK Isoenzymes Pending CK-MM (CK-3) Pending CK-MB (CK-2) Pending CK-BB (CK-1) Pending Urine Color Urine Clarity Urine pH Ur Specific [place] Urine Protein Urine Glucose (UA) Urine Ketones Urine Occult Blood Urine Nitrite Urine Bilirubin Urine Urobilinogen Ur Leukocyte Esterase Urine RBC Urine WBC Ur Squamous Epith Cells Urine Bacteria Urine Mucus Urine Osmolality U Random Total Protein Ur Random Sodium Urine Creatinine Urine Potassium Urine Chloride Urine Urea Nitrogen Assessment/Plan All Active Problems (Last Reviewed 10/04/18 @ 11:59 by Gilberto Branch DO) BRENDA (acute kidney injury) (Acute) Myalgia (Acute) Abdominal distention (Acute) Hyponatremia (Acute) Hx of bladder repair surgery (Resolved) H/O: hysterectomy (Resolved) 1-acute kidney injury on chronic kidney disease. Baseline creatinine 1.58 mg/dL. Chronic kidney disease is presumably from nephrosclerosis due to hypertension and aging. UA showed 100 protein, 25 occult blood.FeNa 8.5% suggesting post renal obstruction. CAT scan from last week showed severely atrophic right kidney and mild left-sided hydronephrosis. other diagnosis would be ATN. I doubt prerenal since FeNa is more than 1% and Cr did not improve with IV fluid Renal ultrasound was done yesterday. Reading is pending. Patient currently is oliguric, creatinine continues to rise 2 L of normal saline Patient needs hemodialysis for metabolic support. I will consult Dr. Del Angel for temporary hemodialysis access placement. I will start hemodialysis after placing the line for 2 hours today, blood flow rate 200. Dialysate flow rate 400 ultrafiltration 1 L. If kidney ultrasound shows worsening hydronephrosis, please consult urology team . Please continue holding enalapril. Keep mean arterial pressure more than 65. We will continue to monitor for kidney function recovery. [id number]. Mild. Was due to dehydration. Sodium improved to 130 with 2 L of normal saline. We will continue to monitor sodium level. 3 -HTN: Blood pressure is well controlled. Please continue holding enalapril. Continue Norvasc 4-lower right side back pain. X-ray showed compression fracture at T8 level. Control as per the primary service Thank you for the consult. Renal team will continue to follow. Plan of care was discussed with the patient and her daughter at bedside. Discussed with Dr.Terelestky Nara Ramirez MD
--- NOTE | 2018-10-05 11:15 | CON.PCM_ITS ---
Problem List (1) BRENDA (acute kidney injury) Status: Acute Consultation - Renal PCP/ Referring MD: Requesting physician: [] Primary care physician: Gilberto Moore - History of Present Illness History of Present Illness: The patient is a 83 year old F presented with a one-week history of back pain, nausea vomiting and diffuse myalgia. In the emergency room creatinine was found to be 8.08 mg/dL. Patient's creatinine at baseline is around 1.5 mg deciliter . X-ray shows T8 compression fracture of undetermined age. Renal team was consulted to help in acute kidney injury management . Patient is oliguric . Bladder scan shows 150 cc . Hall catheter was placed last night. Patient had only 150 cc urine output. patient received 2 L of normal saline yesterday. UA showed 114, 25 occult blood, and leukocyte esterase. Patient started and ceftriaxone for presumed UTI diagnosis. I reviewed patient's home medications. Patient was taken enalapril 10 mg twice a day and Norvasc 10 mg p.o. daily . Enalapril is on hold now due to kidney injury. Patient was kept on Norvasc 10 mg p.o. daily. Patient states she took a few of ibuprofen last week. Patient had CAT scan done on September 28 which shows severely atrophic right kidney and mild hydronephrosis in the left side. Review of systems: 12 systems review is negative except severe right flank pain and right lower back pain [] - Allergies Allergies: Allergies No Known Allergies Allergy (Verified 10/04/18 08:26) - Current Medications Current Medications: Current Medications Acetaminophen (Tylenol) 650 mg PO Q4H PRN PRN PRN Reason: PAIN Last Admin: 10/04/18 15:38 Dose: 650 mg Amlodipine Besylate (Norvasc) 10 mg PO DAILY [facility] Last Admin: 10/05/18 08:27 Dose: Not Given Bisacodyl (Dulcolax) 5 mg PO DAILY PRN PRN Reason: Constipation Last Admin: 10/04/18 15:38 Dose: 5 mg Cholecalciferol (Vitamin D) 1,000 unit PO DAILY [facility] Last Admin: 10/05/18 08:28 Dose: Not Given Fluticasone Propionate (Flonase Nasal [place]) 1 spray NASAL DAILY PRN PRN Reason: ALLERGIES Sodium Chloride () 250 mls @ 15 mls/hr IV .[id number] PRN PRN Reason: SALINE FLUSH Pantoprazole Sodium 40 mg/ (Sodium Chloride) 110 mls @ 330 mls/hr IV Q12 [facility] Last Admin: 10/05/18 08:50 Dose: 330 mls/hr Ceftriaxone Sodium (Rocephin) 1 gm in 50 mls @ 100 mls/hr IV QHS [facility] Last Admin: 10/05/18 04:31 Dose: 100 mls/hr Levothyroxine Sodium (Synthroid) 75 mcg PO DAILY@0600 [facility] Last Admin: 10/05/18 05:53 Dose: Not Given Magnesium Hydroxide (Milk Of Magnesia) 30 ml PO DAILY PRN PRN PRN Reason: Constipation Ondansetron HCl (Zofran) 4 mg IV Q6H PRN PRN PRN Reason: NAUSEA/VOMITING Last Admin: 10/04/18 18:15 Dose: 4 mg Polyethylene Glycol (Miralax) 17 gm PO DAILY [facility] Last Admin: 10/05/18 08:27 Dose: Not Given Pravastatin Sodium (Pravachol) 80 mg PO DAILY@2200 [facility] Last Admin: 10/04/18 22:35 Dose: Not Given Propranolol HCl (Inderal La) 120 mg PO DAILY [facility] Last Admin: 10/05/18 08:27 Dose: Not Given Sodium Chloride () 5 - 30 ml IV UD PRN PRN Reason: SALINE FLUSH Last Admin: 10/04/18 18:15 Dose: 10 ml - Past Medical History Past Medical History (Chronic Problems): Chronic Problems (Last Reviewed 10/04/18 @ 11:59 by Gilberto Branch DO) Abdominal aortic aneurysm (Chronic) Essential (primary) hypertension (Chronic) HLD (hyperlipidemia) (Chronic) Atherosclerosis of coronary artery of [place] heart without angina pectoris (Chronic) - Social History Smoking Status: Former smoker Alcohol: None Drugs: None - Family History Maternal Family History: Family History (Last Reviewed 10/04/18 @ 11:59 by Gilberto Branch DO) Father No problems noted. Mother Breast cancer Brother No problems noted. Patient Problems: Active and Suspected Problems (Last Reviewed 10/04/18 @ 11:59 by Herminio Ovalle) BRENDA (acute kidney injury) (Acute) Myalgia (Acute) Abdominal distention (Acute) Hyponatremia (Acute) - Physical Exam General: Alert, Oriented x3 HEENT: Atraumatic Oral: Moist Mucosa Neck: Supple, No JVD Lungs: Clear to auscultation Cardiovascular: Regular rate, Regular Rhythm, Normal S1, Normal S2 Abdomen: Bowel Sounds Present, Soft, Non Tender, - - Right flank pain Extremities: No clubbing, No cyanosis, No edema Skin: No rashes Musculoskeletal: No Tenderness to Palpation of Joints or Extremities Lymphatic: No Cervical, Supraclavicular, or Inguinal Adenopathy Neurological: Cranial nerves II-XII grossly intact, Neuro grossly intact Psych/Mental Status: Normal Affect Vital Signs Temp Pulse Resp BP Pulse Ox 97.2 F L 59 L 16 96/47 L 92 10/05/18 08:20 10/05/18 08:20 10/05/18 08:20 10/05/18 08:20 10/05/18 08:20 Oxygen Flow Rate (L/min) 2 Oxygen Delivery Method Nasal Cannula Weight: 75.75 kg Body Mass Index (BMI) 28.6 Intake and Output for Last 24 Hours 10/03/18 10/04/18 10/05/18 23:59 23:59 23:59 Intake Total 997 / 997 1915 / 1915 Output Total 280 / 280 Balance 997 / 997 1635 / 1635 Laboratory Tests Past 24 Hrs 10/04/18 10/04/18 10/04/18 23:40 23:40 23:40 WBC RBC Hgb Hct MCV MCH MCHC RDW RDW Differential Plt Count MPV Immature Gran % (Auto) Neut % (Auto) Lymph % (Auto) [place] % (Auto) Eos % (Auto) Baso % (Auto) Absolute Neuts (auto) Absolute Lymphs (auto) Total Counted Differential Comment Eos Smear Total Cells Pending Sodium Potassium Chloride Carbon Dioxide Anion Gap BUN Creatinine Estim Creat Clear Calc Est GFR (MDRD) Af Amer Est GFR (MDRD) Non-Af BUN/Creatinine Ratio Glucose Serum Osmolality Calcium CK Isoenzymes CK-MM (CK-3) CK-MB (CK-2) CK-BB (CK-1) Urine Color Yellow Urine Clarity Clear Urine pH 6.5 Ur Specific [place] 1.010 Urine Protein 100 H Urine Glucose (UA) 50 H Urine Ketones Negative Urine Occult Blood 25 H Urine Nitrite Negative Urine Bilirubin Negative Urine Urobilinogen Normal Ur Leukocyte Esterase 25 H Urine RBC 0 SEEN Urine WBC 10-25 SEEN Ur Squamous Epith Cells 25-50 SEEN Urine Bacteria 0 SEEN Urine Mucus 0 SEEN Urine Osmolality U Random Total Protein Ur Random Sodium Urine Creatinine 49.70 Urine Potassium Urine Chloride Urine Urea Nitrogen 10/04/18 10/05/18 10/05/18 23:40 04:10 04:10 WBC RBC Hgb Hct MCV MCH MCHC RDW RDW Differential Plt Count MPV Immature Gran % (Auto) Neut % (Auto) Lymph % (Auto) [place] % (Auto) Eos % (Auto) Baso % (Auto) Absolute Neuts (auto) Absolute Lymphs (auto) Total Counted Differential Comment Eos Smear Total Cells Sodium Potassium Chloride Carbon Dioxide Anion Gap BUN Creatinine Estim Creat Clear Calc Est GFR (MDRD) Af Amer Est GFR (MDRD) Non-Af BUN/Creatinine Ratio Glucose Serum Osmolality Calcium CK Isoenzymes CK-MM (CK-3) CK-MB (CK-2) CK-BB (CK-1) Urine Color Urine Clarity Urine pH Ur Specific [place] Urine Protein Urine Glucose (UA) Urine Ketones Urine Occult Blood Urine Nitrite Urine Bilirubin Urine Urobilinogen Ur Leukocyte Esterase Urine RBC Urine WBC Ur Squamous Epith Cells Urine Bacteria Urine Mucus Urine Osmolality 312 U Random Total Protein Ur Random Sodium 63 Urine Creatinine 48.10 Urine Potassium Urine Chloride Urine Urea Nitrogen 10/05/18 10/05/18 10/05/18 04:10 04:10 04:10 WBC RBC Hgb Hct MCV MCH MCHC RDW RDW Differential Plt Count MPV Immature Gran % (Auto) Neut % (Auto) Lymph % (Auto) [place] % (Auto) Eos % (Auto) Baso % (Auto) Absolute Neuts (auto) Absolute Lymphs (auto) Total Counted Differential Comment Eos Smear Total Cells Sodium Potassium Chloride Carbon Dioxide Anion Gap BUN Creatinine Estim Creat Clear Calc Est GFR (MDRD) Af Amer Est GFR (MDRD) Non-Af BUN/Creatinine Ratio Glucose Serum Osmolality Calcium CK Isoenzymes CK-MM (CK-3) CK-MB (CK-2) CK-BB (CK-1) Urine Color Yellow Urine Clarity Clear Urine pH 6.5 Ur Specific [place] 1.010 Urine Protein 100 H Urine Glucose (UA) 50 H Urine Ketones Negative Urine Occult Blood 25 H Urine Nitrite Negative Urine Bilirubin Negative Urine Urobilinogen Normal Ur Leukocyte Esterase Negative Urine RBC 0 SEEN Urine WBC 0 SEEN Ur Squamous Epith Cells 0 SEEN Urine Bacteria 0 SEEN Urine Mucus 0 SEEN Urine Osmolality U Random Total Protein 126.6 H Ur Random Sodium 65 Urine Creatinine Urine Potassium 16.0 Urine Chloride 17 Urine Urea Nitrogen 10/05/18 10/05/18 10/05/18 04:10 05:24 05:24 WBC 10.4 RBC 3.18 L Hgb 9.8 L Hct 29.9 L MCV 94.0 MCH 30.8 MCHC 32.8 RDW 13.9 RDW Differential 48.1 H Plt Count 231 MPV 11.3 Immature Gran % (Auto) 0.200 Neut % (Auto) 85.4 H Lymph % (Auto) 5.6 L [place] % (Auto) 8.8 Eos % (Auto) 0.0 Baso % (Auto) 0.0 Absolute Neuts (auto) 8.9 H Absolute Lymphs (auto) 0.58 L Total Counted Not Reportable Differential Comment SCANNED Eos Smear Total Cells Sodium 130 L Potassium 5.0 Chloride 94 L Carbon Dioxide 16.0 L Anion Gap 20 H BUN 113 H* Creatinine 8.20 H* Estim Creat Clear Calc 4.57 Est GFR (MDRD) Af Amer 6 L Est GFR (MDRD) Non-Af 5 L BUN/Creatinine Ratio 13.8 Glucose 70 L Serum Osmolality Calcium 6.4 L* CK Isoenzymes CK-MM (CK-3) CK-MB (CK-2) CK-BB (CK-1) Urine Color Urine Clarity Urine pH Ur Specific [place] Urine Protein Urine Glucose (UA) Urine Ketones Urine Occult Blood Urine Nitrite Urine Bilirubin Urine Urobilinogen Ur Leukocyte Esterase Urine RBC Urine WBC Ur Squamous Epith Cells Urine Bacteria Urine Mucus Urine Osmolality U Random Total Protein Ur Random Sodium Urine Creatinine Urine Potassium Urine Chloride Urine Urea Nitrogen 402 10/05/18 10/05/18 05:24 05:24 WBC RBC Hgb Hct MCV MCH MCHC RDW RDW Differential Plt Count MPV Immature Gran % (Auto) Neut % (Auto) Lymph % (Auto) [place] % (Auto) Eos % (Auto) Baso % (Auto) Absolute Neuts (auto) Absolute Lymphs (auto) Total Counted Differential Comment Eos Smear Total Cells Sodium Potassium Chloride Carbon Dioxide Anion Gap BUN Creatinine Estim Creat Clear Calc Est GFR (MDRD) Af Amer Est GFR (MDRD) Non-Af BUN/Creatinine Ratio Glucose Serum Osmolality 295 Calcium CK Isoenzymes Pending CK-MM (CK-3) Pending CK-MB (CK-2) Pending CK-BB (CK-1) Pending Urine Color Urine Clarity Urine pH Ur Specific [place] Urine Protein Urine Glucose (UA) Urine Ketones Urine Occult Blood Urine Nitrite Urine Bilirubin Urine Urobilinogen Ur Leukocyte Esterase Urine RBC Urine WBC Ur Squamous Epith Cells Urine Bacteria Urine Mucus Urine Osmolality U Random Total Protein Ur Random Sodium Urine Creatinine Urine Potassium Urine Chloride Urine Urea Nitrogen Assessment/Plan All Active Problems (Last Reviewed 10/04/18 @ 11:59 by Gilberto Branch DO) BRENDA (acute kidney injury) (Acute) Myalgia (Acute) Abdominal distention (Acute) Hyponatremia (Acute) Hx of bladder repair surgery (Resolved) H/O: hysterectomy (Resolved) 1-acute kidney injury on chronic kidney disease. Baseline creatinine 1.58 mg/dL. Chronic kidney disease is presumably from nephrosclerosis due to hypertension and aging. UA showed 100 protein, 25 occult blood.FeNa 8.5% suggesting post renal obstruction. CAT scan from last week showed severely atrophic right kidney and mild left-sided hydronephrosis. other diagnosis would be ATN. I doubt prerenal since FeNa is more than 1% and Cr did not improve with IV fluid Renal ultrasound was done yesterday. Reading is pending. Patient currently is oliguric, creatinine continues to rise 2 L of normal saline Patient needs hemodialysis for metabolic support. I will consult Dr. Del Angel for temporary hemodialysis access placement. I will start hemodialysis after placing the line for 2 hours today, blood flow rate 200. Dialysate flow rate 400 ultrafiltration 1 L. If kidney ultrasound shows worsening hydronephrosis, please consult urology team . Please continue holding enalapril. Keep mean arterial pressure more than 65. We will continue to monitor for kidney function recovery. [id number]. Mild. Was due to dehydration. Sodium improved to 130 with 2 L of normal saline. We will continue to monitor sodium level. 3 -HTN: Blood pressure is well controlled. Please continue holding enalapril. Continue Norvasc 4-lower right side back pain. X-ray showed compression fracture at T8 level. Control as per the primary service Thank you for the consult. Renal team will continue to follow. Plan of care was discussed with the patient and her daughter at bedside. Discussed with Dr.Terelestky Nara Ramirez MD
--- NOTE | 2018-10-05 11:40 | CASEMGMT ---
RN CM Face to Face with patient for initial transition planning/care coordination assessment. RN CM introduced self and role at [facility]. Patient lying in bed, alert and oriented, family at bedside. Patient willing to participate in assessment and is able to answer all questions appropriately. Care providers, pharmacy, and demographics verified. Patient wishes to discharge home with HHC or to SNF if necessary pending coarse of treatment. Patient states she has no further needs or concerns at this time. CM to follow for discharge planning needs that may arise. 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 Transportation: Self or family DME/HHC: Patient has walker, will monitor for oxygen. Disposition Plan: Patient to discharge home with HHC, family support, and follow-up plans in place. Will monitor for home oxygen. Subha CHRISTENSEN, RN, CM
[2018-10-05 11:49] VITALS: BP 115/81; PULSE 59; RESP 20; TEMP 36.3; O2SAT 96
[2018-10-05] MEDS: Morphine 2 MG/ML Syringe IV ×2 (13:36→21:53)
--- NOTE | 2018-10-05 13:49 | PCM.CONS.GEN ---
Problem List (1) BRENDA (acute kidney injury) Status: Acute Reason for Consult Date of Consultation: 10/05/18 Reason for Consultation: Acute renal failure. In need of dialysis. History of Present Illness: The patient is a 83 year old F who presented to the ED with a back sprain. Patient was noted to be in acute renal failure with a creatinine of 8. Patient denies previous renal issues or concerns. She noted within the last week she had a decrease in urine output. Patient denies previous dialysis or catheter placement. She denies previous myocardial infarction, stroke, blood clots. She follows with Dr. Friedman for an abdominal aortic aneurysm which was repaired 15 years ago. She denies daily blood thinners. Past Medical History Past Medical History (Chronic Problems): Chronic Problems (Last Reviewed 10/04/18 @ 11:59 by Gilberto Branch DO) Abdominal aortic aneurysm (Chronic) Essential (primary) hypertension (Chronic) HLD (hyperlipidemia) (Chronic) Atherosclerosis of coronary artery of [place] heart without angina pectoris (Chronic) Medical History: Medical History (Last Reviewed 10/05/18 @ 13:56 by Wilda Alexis PA-C) H/O: hysterectomy (Resolved) Z90.710 Essential (primary) hypertension (Chronic) I10 HLD (hyperlipidemia) (Chronic) E78.5 Atherosclerosis of coronary artery of [place] heart without angina pectoris (Chronic) I25.10 Allergies No Known Allergies Allergy (Verified 10/04/18 08:26) Home Medications: Ambulatory Orders Medication Instructions Recorded Enalapril Maleate [Vasotec] 10 mg PO BID 10/01/14 Levothyroxine [Synthroid] 75 mcg PO DAILY 10/01/14 Pravastatin [Pravachol] 80 mg PO DAILY 10/01/14 Fenofibrate [Lofibra] 54 mg PO BID 02/26/16 Propranolol HCl [Inderal Xl (Beta 120 mg PO DAILY 02/26/16 [place])] Amlodipine [Norvasc] 5 mg PO QHS 09/28/18 Amlodipine Besylate [Norvasc] 10 mg PO DAILY 10/04/18 Aspirin E.C. [Ecotrin] 81 mg PO DAILY@0800 10/04/18 Chlorella 5 capsule PO BID 10/04/18 Cholecalciferol (VIT D3) [Vitamin 1 tab PO DAILY 11/11/18 D3] Fluticasone 0.05% [Flonase Nasal 1 spray NASAL DAILY PRN 10/04/18 [place]] [place]-3/Dha/Epa/Fish Oil [Fish Oil 1 each PO BID 10/04/18 500 mg Softgel] Ubidecarenone [Coq10] 50 mg PO DAILY 10/04/18 Surgical History: Surgical History (Last Reviewed 10/05/18 @ 13:56 by Wilda Alexis PA-C) Hx of bladder repair surgery (Resolved) Z98.890 S/P AAA (abdominal aortic aneurysm) repair Z98.890, Z86.79 Psychiatric History: No pertinent psych hx Lives: Alone Smoking Status: Former smoker Tobacco Use: Non-smoker Alcohol: None Drugs: None - *Family History Maternal Family History: Family History (Last Reviewed 10/05/18 @ 13:56 by Wilda Alexis PA-C) Father No problems noted. Mother Breast cancer Brother No problems noted. Review of Systems Constitutional: Reports: Anorexia, Weakness, Fatigue HEENT: Denies: Head Aches, Sinus Congestion, Sinus Drainage Cardiovascular: Denies: Chest Pain, Palpitations Respiratory: Reports: Shortness of breath at rest. Denies: Cough, Sputum production Gastrointestinal: Denies: Abdominal Pain, Nausea, Vomiting Genitourinary: Reports: Retention Musculoskeletal: Reports: Back Pain Skin: Denies: Rash, Wounds Neurological: Denies: Numbness, Tingling, Focal weakness Psychiatric: Denies: Anxiety, Depression, Homicidal Ideations, Suicidal Ideations Hematologic/ Lymphatic: Denies: Easy Bruising, Easy Bleeding Patient Problems: Active and Suspected Problems (Last Reviewed 10/04/18 @ 11:59 by Gilberto Branch DO) BRENDA (acute kidney injury) (Acute) Myalgia (Acute) Abdominal distention (Acute) Hyponatremia (Acute) - Physical Exam General: Alert, Oriented x3, Cooperative HEENT: Atraumatic, PERRLA, EOMI, Normocephalic Neck: Supple, No JVD, Negative Carotid Bruits Lungs: Clear to auscultation, Normal air movement Cardiovascular: Regular rate, No murmurs Abdomen: Bowel Sounds Present, Soft, Non Tender Extremities: No edema, Capillary Refill Less than 3 Seconds Skin: No rashes, No breakdown Musculoskeletal: No Tenderness to Palpation of Joints or Extremities Neurological: Neuro grossly intact Psych/Mental Status: Normal Affect, Appropriate Vital Signs Temp Pulse Resp BP Pulse Ox 97.4 F L 59 L 20 H 115/81 H 96 10/05/18 11:49 10/05/18 11:49 10/05/18 11:49 10/05/18 11:49 10/05/18 11:49 Oxygen Flow Rate (L/min) 3 Oxygen Delivery Method Nasal Cannula Weight: 167 lb 0.001 oz Body Mass Index (BMI) 28.6 Intake and Output for Last 24 Hours 10/03/18 10/04/18 10/05/18 23:59 23:59 23:59 Intake Total 997 / 997 2283 / 2283 Output Total 280 / 280 Balance 997 / 997 2002 Laboratory Tests Past 24 Hrs 10/04/18 10/04/18 10/04/18 23:40 23:40 23:40 WBC RBC Hgb Hct MCV MCH MCHC RDW RDW Differential Plt Count MPV Immature Gran % (Auto) Neut % (Auto) Lymph % (Auto) [place] % (Auto) Eos % (Auto) Baso % (Auto) Absolute Neuts (auto) Absolute Lymphs (auto) Total Counted Differential Comment Eos Smear Total Cells Pending Sodium Potassium Chloride Carbon Dioxide Anion Gap BUN Creatinine Estim Creat Clear Calc Est GFR (MDRD) Af Amer Est GFR (MDRD) Non-Af BUN/Creatinine Ratio Glucose Serum Osmolality Calcium CK Isoenzymes CK-MM (CK-3) CK-MB (CK-2) CK-BB (CK-1) Urine Color Yellow Urine Clarity Clear Urine pH 6.5 Ur Specific [place] 1.010 Urine Protein 100 H Urine Glucose (UA) 50 H Urine Ketones Negative Urine Occult Blood 25 H Urine Nitrite Negative Urine Bilirubin Negative Urine Urobilinogen Normal Ur Leukocyte Esterase 25 H Urine RBC 0 SEEN Urine WBC 10-25 SEEN Ur Squamous Epith Cells 25-50 SEEN Urine Bacteria 0 SEEN Urine Mucus 0 SEEN Urine Osmolality U Random Total Protein Ur Random Sodium Urine Creatinine 49.70 Urine Potassium Urine Chloride Urine Urea Nitrogen 10/04/18 10/05/18 10/05/18 23:40 04:10 04:10 WBC RBC Hgb Hct MCV MCH MCHC RDW RDW Differential Plt Count MPV Immature Gran % (Auto) Neut % (Auto) Lymph % (Auto) [place] % (Auto) Eos % (Auto) Baso % (Auto) Absolute Neuts (auto) Absolute Lymphs (auto) Total Counted Differential Comment Eos Smear Total Cells Sodium Potassium Chloride Carbon Dioxide Anion Gap BUN Creatinine Estim Creat Clear Calc Est GFR (MDRD) Af Amer Est GFR (MDRD) Non-Af BUN/Creatinine Ratio Glucose Serum Osmolality Calcium CK Isoenzymes CK-MM (CK-3) CK-MB (CK-2) CK-BB (CK-1) Urine Color Urine Clarity Urine pH Ur Specific [place] Urine Protein Urine Glucose (UA) Urine Ketones Urine Occult Blood Urine Nitrite Urine Bilirubin Urine Urobilinogen Ur Leukocyte Esterase Urine RBC Urine WBC Ur Squamous Epith Cells Urine Bacteria Urine Mucus Urine Osmolality 312 U Random Total Protein Ur Random Sodium 63 Urine Creatinine 48.10 Urine Potassium Urine Chloride Urine Urea Nitrogen 10/05/18 10/05/18 10/05/18 04:10 04:10 04:10 WBC RBC Hgb Hct MCV MCH MCHC RDW RDW Differential Plt Count MPV Immature Gran % (Auto) Neut % (Auto) Lymph % (Auto) [place] % (Auto) Eos % (Auto) Baso % (Auto) Absolute Neuts (auto) Absolute Lymphs (auto) Total Counted Differential Comment Eos Smear Total Cells Sodium Potassium Chloride Carbon Dioxide Anion Gap BUN Creatinine Estim Creat Clear Calc Est GFR (MDRD) Af Amer Est GFR (MDRD) Non-Af BUN/Creatinine Ratio Glucose Serum Osmolality Calcium CK Isoenzymes CK-MM (CK-3) CK-MB (CK-2) CK-BB (CK-1) Urine Color Yellow Urine Clarity Clear Urine pH 6.5 Ur Specific [place] 1.010 Urine Protein 100 H Urine Glucose (UA) 50 H Urine Ketones Negative Urine Occult Blood 25 H Urine Nitrite Negative Urine Bilirubin Negative Urine Urobilinogen Normal Ur Leukocyte Esterase Negative Urine RBC 0 SEEN Urine WBC 0 SEEN Ur Squamous Epith Cells 0 SEEN Urine Bacteria 0 SEEN Urine Mucus 0 SEEN Urine Osmolality U Random Total Protein 126.6 H Ur Random Sodium 65 Urine Creatinine Urine Potassium 16.0 Urine Chloride 17 Urine Urea Nitrogen 10/05/18 10/05/18 10/05/18 04:10 05:24 05:24 WBC 10.4 RBC 3.18 L Hgb 9.8 L Hct 29.9 L MCV 94.0 MCH 30.8 MCHC 32.8 RDW 13.9 RDW Differential 48.1 H Plt Count 231 MPV 11.3 Immature Gran % (Auto) 0.200 Neut % (Auto) 85.4 H Lymph % (Auto) 5.6 L [place] % (Auto) 8.8 Eos % (Auto) 0.0 Baso % (Auto) 0.0 Absolute Neuts (auto) 8.9 H Absolute Lymphs (auto) 0.58 L Total Counted Not Reportable Differential Comment SCANNED Eos Smear Total Cells Sodium 130 L Potassium 5.0 Chloride 94 L Carbon Dioxide 16.0 L Anion Gap 20 H BUN 113 H* Creatinine 8.20 H* Estim Creat Clear Calc 4.57 Est GFR (MDRD) Af Amer 6 L Est GFR (MDRD) Non-Af 5 L BUN/Creatinine Ratio 13.8 Glucose 70 L Serum Osmolality Calcium 6.4 L* CK Isoenzymes CK-MM (CK-3) CK-MB (CK-2) CK-BB (CK-1) Urine Color Urine Clarity Urine pH Ur Specific [place] Urine Protein Urine Glucose (UA) Urine Ketones Urine Occult Blood Urine Nitrite Urine Bilirubin Urine Urobilinogen Ur Leukocyte Esterase Urine RBC Urine WBC Ur Squamous Epith Cells Urine Bacteria Urine Mucus Urine Osmolality U Random Total Protein Ur Random Sodium Urine Creatinine Urine Potassium Urine Chloride Urine Urea Nitrogen 402 10/05/18 10/05/18 05:24 05:24 WBC RBC Hgb Hct MCV MCH MCHC RDW RDW Differential Plt Count MPV Immature Gran % (Auto) Neut % (Auto) Lymph % (Auto) [place] % (Auto) Eos % (Auto) Baso % (Auto) Absolute Neuts (auto) Absolute Lymphs (auto) Total Counted Differential Comment Eos Smear Total Cells Sodium Potassium Chloride Carbon Dioxide Anion Gap BUN Creatinine Estim Creat Clear Calc Est GFR (MDRD) Af Amer Est GFR (MDRD) Non-Af BUN/Creatinine Ratio Glucose Serum Osmolality 295 Calcium CK Isoenzymes Pending CK-MM (CK-3) Pending CK-MB (CK-2) Pending CK-BB (CK-1) Pending Urine Color Urine Clarity Urine pH Ur Specific [place] Urine Protein Urine Glucose (UA) Urine Ketones Urine Occult Blood Urine Nitrite Urine Bilirubin Urine Urobilinogen Ur Leukocyte Esterase Urine RBC Urine WBC Ur Squamous Epith Cells Urine Bacteria Urine Mucus Urine Osmolality U Random Total Protein Ur Random Sodium Urine Creatinine Urine Potassium Urine Chloride Urine Urea Nitrogen Assessment/Plan All Active Problems (Last Reviewed 11/11/18 @ 11:59 by Gilberto Branch DO) BRENDA (acute kidney injury) (Acute) Myalgia (Acute) Abdominal distention (Acute) Hyponatremia (Acute) Hx of bladder repair surgery (Resolved) H/O: hysterectomy (Resolved) I have been consulted in conjunction with Dr. Del Angel Impression: Acute renal injury Plan: Patient has been discussed with Dr. Del Angel. Dr. Del Angel will plan to perform a temporary non-tunneled dialysis catheter at bedside. Keep patient NPO. Procedure details, risks and benefits have been explained to the patient. Patient and family have had the opportunity to ask and have questions answered. Patient verbally understands and agrees with the plan. Thank you for allowing me to participate in this patient care. Code Visit Office Visits / Consults: [id number] IP Consult L3
[2018-10-05 14:14] LABS: Pathologist Review Reviewed
--- NOTE | 2018-10-05 14:56 | CHAPLAIN ---
Type of Pastoral Visit _x__ Initial Visit ___ Follow-up Visit ___ On-call Visit ___ General Patient Visit ___ Spiritual Assessment ___ Family Conference ___ Bereavement ___ Rapid Response ___ Code Blue ___ Other (describe below) Pastoral Care Referral From _x__ Patient ___ Family ___ Nurse ___ Physician ___ Yield Engineer ___ Director Of Consumer Marketing ___ Other (describe below) Sacrament/Intervention _x__ Active listening ___ Anointing ___ Spiritism ___ Bereavement ___ Communion ___ Samara exploration ___ _x__ Life review _x__ Prayer ___ Reconciliation ___ Sacrament of Sick ___ Supportive presence ___ Wedding ___ Other (describe below) Pastoral Comments patient responded to questions and was able to give some background of life; however pt showed some difficulty in keeping focused and she repeated herself about her husbands stroke; pt was pleasant and said that a prayer would be nice;
--- NOTE | 2018-10-05 17:47 | OP.PCM_ITS ---
Problem List (1) BRENDA (acute kidney injury) Status: Acute Report of Operation Date of Procedure: 10/05/18 Pre-Operative Diagnosis: Acute kidney injury Post-Operative Diagnosis: Same Surgery/Procedure Performed:: Right internal jugular percutaneous temporary double-lumen dialysis catheter placement Description of Surgical Findings:: Timeout and informed consent was obtained. At the bedside the patient was placed in a supine position. The right neck was prepped with ChloraPrep. Using a sterilized mask down close an ultrasound probe cover I inspected the right neck that identify the right internal jugular vein. Under ultrasound guidance 1% lidocaine was instilled as local anesthetic. A singlewall needle was advanced into the right internal jugular vein followed by uncomplicated Seldinger wire advancement. The tract was serially dilated. The 16 [place] double-lumen dialysis catheter was easily advanced over the wire. The wire was removed. The catheter ends were secured. The catheter was secured to the neck with interrupted 3-0 nylon. Sterile dressings were applied. The catheter was aspirated easily and were flushed with saline and subsequently heparinized saline. Blood loss was minimal no apparent complication she tolerated the procedure well. Stat portable chest x-ray is pending. Impression successfully placed right internal jugular percutaneous temporary d ialysis catheters Gideon Del Angel M.D., F.A.C.S. Type of Anesthesia:: Local
--- NOTE | 2018-10-05 17:49 | RAD_ITS ---
STUDY: X-RAY CHEST REASON FOR EXAM: Female, 83 years old. Post dialysis port placement. TECHNIQUE: Single AP portable semierect view of the chest. COMPARISON: AP upright and lateral chest x-ray October 04, 2018. FINDINGS: New right central venous catheter entering from the neck has its tip in the superior vena cava. No pneumothorax. Blunting of the lateral costophrenic sulci again noted. Stable calcified granuloma in the lateral left lung base. Subsegmental volume loss suggested in the lateral lung bases as well. There is stable mild cardiac enlargement. Normal mediastinum and skip. Normal visualized pulmonary arteries. There is stable atherosclerotic calcification of the aortic arch. Normal visualized thoracic spine. Normal visualized ribs, clavicles, and shoulders. The proximal margin of an aortic stent graft is incidentally noted at the bottom of the field of view. RAD/CXR for Line Placement IMPRESSION: 1. Right central venous/dialysis catheter in place. No pneumothorax. 2. Stable cardiac enlargement. No CHF. 3. Stable calcified left base granuloma as well as blunting of the bilateral osteoporotic sulci. 4. Minor bibasilar subsegmental volume loss. Electronically Signed: Rashaun Hathaway MD at 18:41 EST , Service support ,
[2018-10-05 18:15] VITALS: BP 112/47; PULSE 59; RESP 20; TEMP 36.5; O2SAT 95
--- NOTE | 2018-10-05 20:17 | PN_ITS ---
Patient Problems: Active and Suspected Problems (Last Reviewed 10/05/18 @ 13:56 by Wilda Alexis PA-C) BRENDA (acute kidney injury) (Acute) Myalgia (Acute) Abdominal distention (Acute) Hyponatremia (Acute) Subjective: Patient was seen and examined today, she had an ultrasound of her kidneys performed, her right kidney was atrophic, her left kidney showed no evidence of hydronephrosis. I discussed her medical care with nephrology today as well as general surgery, a temporary dialysis catheter was placed today. Patient's daughter and were in her room this morning and I briefly talked about her medical care with them also. It is planned that the patient will receive dialysis today after a temporary dialysis catheter is placed later today. - Physical Exam General: Alert, Oriented x3, Cooperative, No apparent distress, Well developed, Well nourished HEENT: Atraumatic, PERRLA, EOMI, Normocephalic Oral: Moist Mucosa Neck: Supple, No Nuchal Rigidity, Trachea Midline, Thyroid Normal Size and Texture Lungs: Clear to auscultation, Normal air movement, No rhonchi, No wheeze, No rales Cardiovascular: Regular rate, Regular Rhythm, Normal S1, Normal S2, No murmurs Abdomen: Bowel Sounds Present, Soft, Non Tender, Non-Distended Extremities: No clubbing, No cyanosis, No edema, Capillary Refill Less than 3 Seconds Skin: No rashes, No breakdown Neurological: Cranial nerves II-XII grossly intact, Neuro grossly intact, Sensory exam intact to light touch and pain, Coordination normal Psych/Mental Status: Normal Affect, Appropriate, - - Patient is alert and appropriate to simple questions Vital Signs Temp Pulse Resp BP Pulse Ox 97.7 F L 59 L 20 H 112/47 L 95 10/05/18 18:15 10/05/18 18:15 10/05/18 18:15 10/05/18 18:15 10/05/18 18:15 Oxygen Flow Rate (L/min) 3 Oxygen Delivery Method Nasal Cannula Weight: 75.75 kg Body Mass Index (BMI) 28.6 Intake and Output for Last 24 Hours 10/03/18 10/04/18 10/05/18 23:59 23:59 23:59 Intake Total 997 / 997 2283 / 2283 Output Total 280 / 280 Balance 997 / 997 2002 Laboratory Tests Past 24 Hrs 10/04/18 10/04/18 10/04/18 08:55 23:40 23:40 WBC RBC Hgb Hct MCV MCH MCHC RDW RDW Differential Plt Count MPV Immature Gran % (Auto) Neut % (Auto) Lymph % (Auto) [place] % (Auto) Eos % (Auto) Baso % (Auto) Absolute Neuts (auto) Absolute Lymphs (auto) Total Counted Differential Comment Diff Path Review Reviewed Eos Smear Total Cells Pending Sodium Potassium Chloride Carbon Dioxide Anion Gap BUN Creatinine Estim Creat Clear Calc Est GFR (MDRD) Af Amer Est GFR (MDRD) Non-Af BUN/Creatinine Ratio Glucose Serum Osmolality Calcium CK Isoenzymes CK-MM (CK-3) CK-MB (CK-2) CK-BB (CK-1) Urine Color Yellow Urine Clarity Clear Urine pH 6.5 Ur Specific [place] 1.010 Urine Protein 100 H Urine Glucose (UA) 50 H Urine Ketones Negative Urine Occult Blood 25 H Urine Nitrite Negative Urine Bilirubin Negative Urine Urobilinogen Normal Ur Leukocyte Esterase 25 H Urine RBC 0 SEEN Urine WBC 10-25 SEEN Ur Squamous Epith Cells 25-50 SEEN Urine Bacteria 0 SEEN Urine Mucus 0 SEEN Urine Osmolality U Random Total Protein Ur Random Sodium Urine Creatinine Urine Potassium Urine Chloride Urine Urea Nitrogen 10/04/18 10/04/18 10/05/18 23:40 23:40 04:10 WBC RBC Hgb Hct MCV MCH MCHC RDW RDW Differential Plt Count MPV Immature Gran % (Auto) Neut % (Auto) Lymph % (Auto) [place] % (Auto) Eos % (Auto) Baso % (Auto) Absolute Neuts (auto) Absolute Lymphs (auto) Total Counted Differential Comment Diff Path Review Eos Smear Total Cells Sodium Potassium Chloride Carbon Dioxide Anion Gap BUN Creatinine Estim Creat Clear Calc Est GFR (MDRD) Af Amer Est GFR (MDRD) Non-Af BUN/Creatinine Ratio Glucose Serum Osmolality Calcium CK Isoenzymes CK-MM (CK-3) CK-MB (CK-2) CK-BB (CK-1) Urine Color Urine Clarity Urine pH Ur Specific [place] Urine Protein Urine Glucose (UA) Urine Ketones Urine Occult Blood Urine Nitrite Urine Bilirubin Urine Urobilinogen Ur Leukocyte Esterase Urine RBC Urine WBC Ur Squamous Epith Cells Urine Bacteria Urine Mucus Urine Osmolality 312 U Random Total Protein Ur Random Sodium 63 Urine Creatinine 49.70 Urine Potassium Urine Chloride Urine Urea Nitrogen 10/05/18 10/05/18 10/05/18 04:10 04:10 04:10 WBC RBC Hgb Hct MCV MCH MCHC RDW RDW Differential Plt Count MPV Immature Gran % (Auto) Neut % (Auto) Lymph % (Auto) [place] % (Auto) Eos % (Auto) Baso % (Auto) Absolute Neuts (auto) Absolute Lymphs (auto) Total Counted Differential Comment Diff Path Review Eos Smear Total Cells Sodium Potassium Chloride Carbon Dioxide Anion Gap BUN Creatinine Estim Creat Clear Calc Est GFR (MDRD) Af Amer Est GFR (MDRD) Non-Af BUN/Creatinine Ratio Glucose Serum Osmolality Calcium CK Isoenzymes CK-MM (CK-3) CK-MB (CK-2) CK-BB (CK-1) Urine Color Yellow Urine Clarity Clear Urine pH 6.5 Ur Specific [place] 1.010 Urine Protein 100 H Urine Glucose (UA) 50 H Urine Ketones Negative Urine Occult Blood 25 H Urine Nitrite Negative Urine Bilirubin Negative Urine Urobilinogen Normal Ur Leukocyte Esterase Negative Urine RBC 0 SEEN Urine WBC 0 SEEN Ur Squamous Epith Cells 0 SEEN Urine Bacteria 0 SEEN Urine Mucus 0 SEEN Urine Osmolality U Random Total Protein 126.6 H Ur Random Sodium Urine Creatinine 48.10 Urine Potassium Urine Chloride Urine Urea Nitrogen 10/05/18 10/05/18 10/05/18 04:10 04:10 05:24 WBC 10.4 RBC 3.18 L Hgb 9.8 L Hct 29.9 L MCV 94.0 MCH 30.8 MCHC 32.8 RDW 13.9 RDW Differential 48.1 H Plt Count 231 MPV 11.3 Immature Gran % (Auto) 0.200 Neut % (Auto) 85.4 H Lymph % (Auto) 5.6 L [place] % (Auto) 8.8 Eos % (Auto) 0.0 Baso % (Auto) 0.0 Absolute Neuts (auto) 8.9 H Absolute Lymphs (auto) 0.58 L Total Counted Not Reportable Differential Comment SCANNED Diff Path Review Eos Smear Total Cells Sodium Potassium Chloride Carbon Dioxide Anion Gap BUN Creatinine Estim Creat Clear Calc Est GFR (MDRD) Af Amer Est GFR (MDRD) Non-Af BUN/Creatinine Ratio Glucose Serum Osmolality Calcium CK Isoenzymes CK-MM (CK-3) CK-MB (CK-2) CK-BB (CK-1) Urine Color Urine Clarity Urine pH Ur Specific [place] Urine Protein Urine Glucose (UA) Urine Ketones Urine Occult Blood Urine Nitrite Urine Bilirubin Urine Urobilinogen Ur Leukocyte Esterase Urine RBC Urine WBC Ur Squamous Epith Cells Urine Bacteria Urine Mucus Urine Osmolality U Random Total Protein Ur Random Sodium 65 Urine Creatinine Urine Potassium 16.0 Urine Chloride 17 Urine Urea Nitrogen 402 10/05/18 10/05/18 10/05/18 05:24 05:24 05:24 WBC RBC Hgb Hct MCV MCH MCHC RDW RDW Differential Plt Count MPV Immature Gran % (Auto) Neut % (Auto) Lymph % (Auto) [place] % (Auto) Eos % (Auto) Baso % (Auto) Absolute Neuts (auto) Absolute Lymphs (auto) Total Counted Differential Comment Diff Path Review Eos Smear Total Cells Sodium 130 L Potassium 5.0 Chloride 94 L Carbon Dioxide 16.0 L Anion Gap 20 H BUN 113 H* Creatinine 8.20 H* Estim Creat Clear Calc 4.57 Est GFR (MDRD) Af Amer 6 L Est GFR (MDRD) Non-Af 5 L BUN/Creatinine Ratio 13.8 Glucose 70 L Serum Osmolality 295 Calcium 6.4 L* CK Isoenzymes Pending CK-MM (CK-3) Pending CK-MB (CK-2) Pending CK-BB (CK-1) Pending Urine Color Urine Clarity Urine pH Ur Specific [place] Urine Protein Urine Glucose (UA) Urine Ketones Urine Occult Blood Urine Nitrite Urine Bilirubin Urine Urobilinogen Ur Leukocyte Esterase Urine RBC Urine WBC Ur Squamous Epith Cells Urine Bacteria Urine Mucus Urine Osmolality U Random Total Protein Ur Random Sodium Urine Creatinine Urine Potassium Urine Chloride Urine Urea Nitrogen Medical Necessity - Tobacco Use Smoking Status: Former smoker Tobacco Use: Non-smoker Assessment/Plan All Active Problems (Last Reviewed 10/05/18 @ 13:56 by Wilda Alexis PA-C) BRENDA (acute kidney injury) (Acute) Myalgia (Acute) Abdominal distention (Acute) Hyponatremia (Acute) Hx of bladder repair surgery (Resolved) H/O: hysterectomy (Resolved) #1 acute renal failure-etiology unclear at this time, questionable ATN, patient will undergo dialysis, labs will be monitored, workup will continue regarding the patient's acute renal failure #2 essential hypertension #3 atherosclerotic heart disease #4 hyperlipidemia #5 atrophic right kidney Code Visit Inpatient E&M: 64896 Subs Hosp L2
[2018-10-05 20:28] VITALS: BP 99/37; PULSE 54; RESP 20; TEMP 36.6; O2SAT 97
[2018-10-05] MEDS: Pravastatin 80 MG Tablet PO (21:37)
[2018-10-05] MEDS: 0.9% NaCl Peripheral Flush Adult/Peds IV (21:53)
--- NOTE | 2018-10-05 22:39 | NURSING ---
Hepatitis labs entered with assistance from our [facility] lab since orders written by dialysis nurse were a little unclear.
[2018-10-06 03:09] VITALS: BP 113/52; PULSE 60; RESP 20; TEMP 36.4; O2SAT 100
[2018-10-06] MEDS: Levothyroxine 75 MCG Tablet PO (05:10)
[2018-10-06] MEDS: Morphine 4 MG/ML Syringe IV (05:11)
[2018-10-06] MEDS: 0.9% NaCl Peripheral Flush Adult/Peds IV (05:12)
[2018-10-06] MEDS: Morphine 2 MG/ML Syringe IV ×3 (08:25→18:03)
[2018-10-06 09:02] LABS: Anion Gap 14 (5-15); BUN 76 mg/dL (7-18); BUN/Creat Ratio 12.9 RATIO (10-20); Calcium,Total 6.2 mg/dL (8.5-10.1); Chloride 96 mmol/L (98-107); Creatinine, Serum 5.89 mg/dL (0.55-1.02); EST Glomerular Filtration Rate 7 mL/min (>60); Est Glom Filt Rate - Afr Amer 9 mL/min (>60); Estimated Creatinine Clearance 6.36 ml/min; Glucose 48 mg/dL (74-106); Potassium 5.1 mmol/L (3.5-5.1); Sodium Level 131 mmol/L (136-145)
--- NOTE | 2018-10-06 09:21 | PCM.PN.REN ---
Patient Problems: Active and Suspected Problems (Last Reviewed 10/05/18 @ 13:56 by Wilda Alexis PA-C) BRENDA (acute kidney injury) (Acute) Myalgia (Acute) Abdominal distention (Acute) Hyponatremia (Acute) Subjective: Pt is little drowsy this morning from morphine Seen during HD session. No acute complaints. no nausea No vomiting - Physical Exam General: Cooperative, - - little drowsy HEENT: Atraumatic Oral: Dry Mucosa Neck: Supple, No JVD Lungs: Clear to auscultation, No wheeze, No rales Cardiovascular: Regular rate, Regular Rhythm, Normal S1, Normal S2 Abdomen: Bowel Sounds Present Extremities: No clubbing, No cyanosis, No edema Skin: No rashes Musculoskeletal: No Tenderness to Palpation of Joints or Extremities Neurological: Cranial nerves II-XII grossly intact, Neuro grossly intact Psych/Mental Status: Appropriate Vital Signs Temp Pulse Resp BP Pulse Ox 97.5 F L 60 20 H 113/52 L 100 10/06/18 03:09 10/06/18 03:09 10/06/18 03:09 10/06/18 03:09 10/06/18 03:09 Oxygen Flow Rate (L/min) 3 Oxygen Delivery Method Nasal Cannula Weight: 75.75 kg Body Mass Index (BMI) 28.6 Intake and Output for Last 24 Hours 10/04/18 10/05/18 10/06/18 23:59 23:59 23:59 Intake Total 997 / 997 2528 / 2528 30 / 30 Output Total 1305 / 1305 Balance 997 / 997 1223 / 1223 30 / 30 Laboratory Tests Past 24 Hrs 10/04/18 10/06/18 10/06/18 08:55 05:24 Unknown Diff Path Review Reviewed Sodium 131 L Potassium 5.1 Chloride 96 L Carbon Dioxide 21.0 Anion Gap 14 BUN 76 H Creatinine 5.89 H Estim Creat Clear Calc 6.36 Est GFR (MDRD) Af Amer 9 L Est GFR (MDRD) Non-Af 7 L BUN/Creatinine Ratio 12.9 Glucose 48 L Calcium 6.2 L* Hep Bs Antigen Pending Hep Bs Antibody Pending Hep B Core IgM Ab Pending Medical Necessity - Tobacco Use Smoking Status: Former smoker Tobacco Use: Non-smoker Assessment/Plan All Active Problems (Last Reviewed 10/05/18 @ 13:56 by Wilda Alexis PA-C) BRENDA (acute kidney injury) (Acute) Myalgia (Acute) Abdominal distention (Acute) Hyponatremia (Acute) Hx of bladder repair surgery (Resolved) H/O: hysterectomy (Resolved) 1-Acute kidney injury on chronic kidney disease. Baseline creatinine 1.58 mg/dL. Chronic kidney disease is presumably from nephrosclerosis due to hypertension and aging. acute kidney injury is most probably from prolonged prerenal status resulting in ATN. FeNA is 8.5% Kidney ultrasound showed right atrophic kidney. No hydronephrosis in the left kidney. Patient is now hemodialysis dependent for metabolic support. hemodialysis was started on October 05. current hemodialysis access is right IJ non tunneled cath no recovery of kidney function. Urine output remains less than 500 cc Hemodialysis session today: blood flow rate 250, Dialysate flow rate 500. UF none I will give the patient one liter on Ns over 10 hours. Will monitor UOP with IV fluid bolus. Keep MAP >65 Continue holding ACEI Check renal function in am 3-[id number]. Mild. Was due to dehydration. resolved 3 -HTN: Blood pressure is in the low side. Please continue holding enalapril. d/c Norvasc 4-lower right side back pain. X-ray showed compression fracture at T8 level. Control as per the primary service Renal team will continue to follow. Discussed with Dr.Terelestky Nara Ramirez MD
[2018-10-06 10:01] LABS: Bedside Glucose 119 mg/dL (70-110)
[2018-10-06] MEDS: Dextrose 50%-Water 25 GM/50 ML DISP.SYRIN IV ×2 (10:04→22:18)
[2018-10-06] MEDS: 0.9% Normal Saline 1,000 ML 125 ML IV ×2 (10:05→17:08)
[2018-10-06 11:00] VITALS: BP 134/64; PULSE 57; RESP 16; TEMP 36.6; O2SAT 95
--- NOTE | 2018-10-06 11:20 | PCM.PROGNOTE ---
Patient Problems: Active and Suspected Problems (Last Reviewed 10/05/18 @ 13:56 by Wilda Alexis PA-C) BRENDA (acute kidney injury) (Acute) Myalgia (Acute) Abdominal distention (Acute) Hyponatremia (Acute) Subjective: Patient was seen and examined today, she is lethargic and does not respond to verbal stimuli although she does respond to painful stimuli. Patient is not alert enough to eat at this time, she is undergoing dialysis again today, her creatinine improved from yesterday's reading. I talked briefly with nephrology about her medical care today. - Physical Exam General: No apparent distress, Lethargic HEENT: Atraumatic, PERRLA, Normocephalic Oral: Moist Mucosa Neck: Supple, Trachea Midline, Thyroid Normal Size and Texture Lungs: Clear to auscultation, Normal air movement, No rhonchi, No wheeze, No rales Cardiovascular: Regular rate, Regular Rhythm, Normal S1, Normal S2, No murmurs, No Ectopic Activity, PMI Normal, No rub noted, No Gallop Abdomen: Bowel Sounds Present, Soft, Non Tender, Non-Distended, No hernias noted Extremities: No edema, Capillary Refill Less than 3 Seconds Skin: No rashes, No breakdown Neurological: Cranial nerves II-XII grossly intact, Neuro grossly intact Psych/Mental Status: - - Patient is lethargic at this time but responds to painful stimuli Vital Signs Temp Pulse Resp BP Pulse Ox 97.5 F L 60 20 H 113/52 L 100 10/06/18 03:09 10/06/18 03:09 10/06/18 03:09 10/06/18 03:09 10/06/18 03:09 Oxygen Flow Rate (L/min) 3 Oxygen Delivery Method Nasal Cannula Weight: 75.75 kg Body Mass Index (BMI) 28.6 Intake and Output for Last 24 Hours 10/04/18 10/05/18 10/06/18 23:59 23:59 23:59 Intake Total 997 / 997 2528 / 2528 30 / 30 Output Total 1305 / 1305 Balance 997 / 997 1223 / 1223 Laboratory Tests Past 24 Hrs 10/04/18 10/06/18 10/06/18 08:55 05:24 Unknown Diff [address] Review Reviewed Sodium 131 L Potassium 5.1 Chloride 96 L Carbon Dioxide 21.0 Anion Gap 14 BUN 76 H Creatinine 5.89 H Estim Creat Clear Calc 6.36 Est GFR (MDRD) Af Amer 9 L Est GFR (MDRD) Non-Af 7 L BUN/Creatinine Ratio 12.9 Glucose 48 L Calcium 6.2 L* Hep Bs Antigen Pending Hep Bs Antibody Pending Hep B Core IgM Ab Pending POC Glucose 10/06/18 09:55 POC Glucose 119 H Medical Necessity - Tobacco Use Smoking Status: Former smoker Tobacco Use: Non-smoker Assessment/Plan All Active Problems (Last Reviewed 10/05/18 @ 13:56 by Widla Alexis PA-C) BRENDA (acute kidney injury) (Acute) Myalgia (Acute) Abdominal distention (Acute) Hyponatremia (Acute) Hx of bladder repair surgery (Resolved) H/O: hysterectomy (Resolved) #1 acute renal failure-etiology unclear at this time, questionable ATN, patient will undergo dialysis today, labs will be monitored, workup will continue regarding the patient's acute renal failure #2 essential hypertension #3 atherosclerotic heart disease #4 hyperlipidemia #5 atrophic right kidney #6 somnolence-possibly as result of metabolic encephalopathy, continue to observe patient, PT and OT as well as speech therapy will see the patient Code Visit Inpatient E&M: 99118 Subs Hosp L2
--- NOTE | 2018-10-06 12:14 | PCM.PN.SRG ---
Patient Problems: Active and Suspected Problems (Last Reviewed 10/05/18 @ 13:56 by Wilda Alexis PA-C) BRENDA (acute kidney injury) (Acute) Myalgia (Acute) Abdominal distention (Acute) Hyponatremia (Acute) Subjective: Patient evaluated resting in bed. She notes very minimal amount of discomfort at the catheter site. Catheter has been utilized and has worked well. No concerns with the catheter or drainage at this point. - Physical Exam General: Lethargic Neck: Supple, No JVD, Negative Carotid Bruits, - - Right neck non-tunneled dialysis catheter- intact. No drainage noted. Vital Signs Temp Pulse Resp BP Pulse Ox 97.8 F 57 L 16 134/64 H 95 10/06/18 11:00 10/06/18 11:00 10/06/18 11:00 10/06/18 11:00 10/06/18 11:00 Oxygen Flow Rate (L/min) 3 Oxygen Delivery Method Nasal Cannula Weight: 167 lb 0.001 oz Body Mass Index (BMI) 28.6 Intake and Output for Last 24 Hours 10/04/18 10/05/18 10/06/18 23:59 23:59 23:59 Intake Total 997 / 997 2528 / 2528 30 / 30 Output Total 1305 / 1305 Balance 997 / 997 1223 / 1223 30 30 Laboratory Tests Past 24 Hrs 10/04/18 10/06/18 10/06/18 08:55 05:24 Unknown [address] Review Reviewed Sodium 131 L Potassium 5.1 Chloride 96 L Carbon Dioxide 21.0 Anion Gap 14 BUN 76 H Creatinine 5.89 H Estim Creat Clear Calc 6.36 Est GFR (MDRD) Af Amer 9 L Est GFR (MDRD) Non-Af 7 L BUN/Creatinine Ratio 12.9 Glucose 48 L Calcium 6.2 L* Hep Bs Antigen Pending Hep Bs Antibody Pending Hep B Core IgM Ab Pending POC Glucose 10/06/18 09:55 POC Glucose 119 H Medical Necessity - Tobacco Use Smoking Status: Former smoker Tobacco Use: Non-smoker Assessment/Plan All Active Problems (Last Reviewed 10/05/18 @ 13:56 by Wilda Alexis PA-C) BRENDA (acute kidney injury) (Acute) Myalgia (Acute) Abdominal distention (Acute) Hyponatremia (Acute) Hx of bladder repair surgery (Resolved) H/O: hysterectomy (Resolved) I am following this patient in conjunction with Dr. Del Angel Impression: Acute renal injury Catheter working well We will sign off at this point. Please reconsult if needed Again, Thank you for allowing us to participate in this patient's care. Code Visit Inpatient E&M: [id number] Subs Hosp L1
[2018-10-06 15:14] LABS: Eosinophil Ct. Urine No Eosinophils Seen % (.)
[2018-10-06 16:09] LABS: Creatine Kinase MB 1 % (0-3); Creatine Kinase MM 99 % (97-100); Creatine Kinase,Total,Serum 103 U/L (24-173); Macro I 0 % (Not Observed); Macro II 0 % (Not Observed)
[2018-10-06 17:00] VITALS: BP 113/39; PULSE 63; RESP 18; TEMP 36.6; O2SAT 94
[2018-10-06 19:43] VITALS: BP 106/51; PULSE 58; RESP 16; TEMP 37.3; O2SAT 94
--- NOTE | 2018-10-06 21:10 | RAD_ITS ---
STUDY: X-RAY CHEST REASON FOR EXAM: Female, 83 years old. Shortness of breath. TECHNIQUE: Single frontal view of the chest. COMPARISON: October 04, 2018 FINDINGS: The lungs are hyperinflated. There are left basilar streaky opacities. There is a new right-sided central venous catheter in place terminating within the expected region of the superior vena cava. There is cardiomegaly present. There is atherosclerotic calcification of the aortic arch with tortuosity. Normal visualized thoracic spine. Normal visualized ribs, clavicles, and shoulders. There is no demonstrated abnormality of the visualized soft tissue structures of the upper abdomen. RAD/Chest 1 View (Portable) IMPRESSION: Nonspecific left basilar opacities may be secondary to underlying atelectasis and/or evolving pneumonia. Cardiomegaly. Electronically Signed: Cristina You MD at 21:33 EST Tel , Service support ,
[2018-10-06 22:06] LABS: Bedside Glucose 65 mg/dL (70-110)
[2018-10-06] MEDS: Ceftriaxone 1 GM/50 ML BAG IV (22:18)
--- NOTE | 2018-10-06 22:41 | PCM.PN.BLA ---
Progress Note Responded to page from nursing that patient is lethargic and with respiratory distress. Patient noted to have respiratory distress diffuse of accessory muscles of respiration. Oxygen saturation 88% on 3L. Other vitals unremarkable. Chest x-ray showed bibasilar atelectasis or infiltrates. Patient already on ceftriaxone for probable UTI.. Azithromycin added. Will treat for likely community-acquired pneumonia Blood glucose 65. An amp of dextrose ordered. ABG ordered. Discussed CODE STATUS with family who want patient to be a full code.
--- NOTE | 2018-10-06 22:53 | NURSING ---
[facility]PS called about ABGs per Dr. Velazco's request. They have not been drawn yet but he will be up to draw them now.
[2018-10-06 22:54] VITALS: BP 111/44; PULSE 56; RESP 17; TEMP 37.4; O2SAT 95
[2018-10-06 23:31] LABS: Base Excess -9 mmol/L (-2 to +2); Bicarbonate 17.3 mmol/L (22-26); Blood Gas Specimen Type ART; O2 Delivery Device Nasal Can; PO2 49 mmHG (75-100); SITE R Radial; SO2 79 % (95-99); Total Carbon Dioxide 18 mmol/L; pCO2 36.9 mmHg (35-45); pH 7.28 (7.35-7.45)
[2018-10-06 23:51] LABS: Allen Test POS; Base Excess -10 mmol/L (-2 to +2); Bicarbonate 17.4 mmol/L (22-26); Blood Gas Specimen Type ART; O2 Delivery Device Nasal Can; PO2 102 mmHG (75-100); SITE R Brachial; SO2 97 % (95-99); Total Carbon Dioxide 19 mmol/L; pCO2 39.6 mmHg (35-45); pH 7.25 (7.35-7.45)
[2018-10-07] VITALS (37 sets, daily range): BP systolic 70–141; BP diastolic 40–101; PULSE 52–116; RESP 12–33; TEMP 35.8–37.1; O2SAT 79–100
[2018-10-07 06:07] LABS: HEPATITIS B SURFACE AG Negative (Negative)
[2018-10-07 07:00] LABS: Bedside Glucose 78 mg/dL (70-110)
[2018-10-07 07:01] LABS: Anion Gap 17 (5-15); BUN 62 mg/dL (7-18); BUN/Creat Ratio 10.7 RATIO (10-20); Chloride 100 mmol/L (98-107); Creatinine, Serum 5.81 mg/dL (0.55-1.02); EST Glomerular Filtration Rate 7 mL/min (>60); Est Glom Filt Rate - Afr Amer 9 mL/min (>60); Estimated Creatinine Clearance 6.45 ml/min; Glucose 89 mg/dL (74-106); Potassium 5.6 mmol/L (3.5-5.1); Sodium Level 132 mmol/L (136-145)
--- NOTE | 2018-10-07 07:35 | CT_ITS ---
STUDY: CT BRAIN WITHOUT CONTRAST REASON FOR EXAM: Female, 83 years old. Altered mental status. RADIATION DOSAGE (If Supplied By Facility): CTDIvol = ( 44.99 ) mGy, DLP = ( 880.47 ) mGycm TECHNIQUE: Transaxial CT imaging of the brain was performed without administration of intravenous contrast material. Individualized dose optimization techniques were used for this CT. COMPARISON: None. FINDINGS: Normal soft tissue structures. Normal calvarium. Normal size ventricles and extra-axial spaces for the patient's age. Normal white matter tracts of the cerebral hemispheres. Normal basal ganglia and thalami. Normal brainstem. Normal cerebellum. There is no intracranial hemorrhage. There are no findings of an acute ischemic infarction. Atherosclerotic calcification of the cavernous portions of the internal carotid arteries bilaterally. Normal visualized paranasal sinuses. CT/Brain/Head without Contrast IMPRESSION: Chronic involutional changes of the brain. Electronically Signed: Isidro Araujo MD at 8:58 EST Tel [phone], Service support ,
--- NOTE | 2018-10-07 08:01 | CT_ITS ---
STUDY: CT ABDOMEN AND PELVIS WITHOUT CONTRAST REASON FOR EXAM: Female, 83 years old. Abdominal pain and abdominal bloating. History of acute renal failure. RADIATION DOSAGE (If Supplied By Facility): CTDIvol = ( 18.75 ) mGy, DLP = ( 927.29 ) mGycm TECHNIQUE: Transaxial images were obtained from the dome of the diaphragm to the symphysis pubis without oral contrast, and without intravenous contrast. Sagittal and coronal images were reconstructed. Individualized dose optimization techniques were used for this CT. COMPARISON: Comparison is made with prior study dated September 28, 2018. FINDINGS: There now is evidence of small bilateral pleural effusions with bibasilar infiltration and/or atelectasis. Coronary artery calcification. Normal liver. Mildly distended gallbladder. I suspect small stones and sludge within the gallbladder lumen. Normal spleen. Normal pancreas. Normal bilateral adrenal glands. Markedly atrophic right kidney. Normal left kidney. There is a small hiatal hernia. Normal small intestine. There are multiple colonic diverticula consistent with diverticulosis. Fluid-filled right hemicolon. Mild degree of increased markings in the mesenteric fat within the right lower quadrant. There is diffuse atherosclerotic calcification of the abdominal aorta and its major visceral branches. There is evidence of a covered aortic stent for aneurysm repair. Normal inferior vena cava. Normal retroperitoneum. A Hall catheter is seen within the empty urinary bladder. There is absence of the uterus consistent with a prior hysterectomy. There is a left-sided inguinal hernia containing adipose tissue. Complete collapse of the L1 vertebrae. Degenerative changes at the L5-S1 level. CT/Abdomen/Pelvis without Cont IMPRESSION: New small bilateral pleural effusions with underlying infiltration and/or atelectasis. Mildly distended fluid filled right hemicolon with mild degree of increased markings in the mesenteric fat in the right lower quadrant. Cholelithiasis. Electronically Signed: Isidro Araujo MD at 9:04 EST Tel [phone], Service support ,
--- NOTE | 2018-10-07 08:59 | PCM.PN.REN ---
Patient Problems: Active and Suspected Problems (Last Reviewed 10/05/18 @ 13:56 by Wilda Alexis PA-C) BRENDA (acute kidney injury) (Acute) Myalgia (Acute) Abdominal distention (Acute) Hyponatremia (Acute) Subjective: Pt is confused this morning. In SOB using accessory muscle. Can not do ROS - Physical Exam General: Confused HEENT: Atraumatic Oral: Dry Mucosa Neck: Supple, No JVD Lungs: Short of Breath, Tachypneic, - - decrease BS over boht lungs base Cardiovascular: Regular rate, Regular Rhythm, Normal S1, Normal S2 Abdomen: Soft, Non-Distended Extremities: No clubbing, No cyanosis, No edema Skin: No breakdown Lymphatic: No Cervical, Supraclavicular, or Inguinal Adenopathy Neurological: - - cofused not responding to painful stimulus Vital Signs Temp Pulse Resp BP Pulse Ox 97.9 F 54 L 30 H 138/55 H 92 10/07/18 07:52 10/07/18 08:01 10/07/18 07:52 10/07/18 07:52 10/07/18 07:52 Oxygen Flow Rate (L/min) 6 Oxygen Delivery Method Nasal Cannula Weight: 75.75 kg Body Mass Index (BMI) 28.6 Intake and Output for Last 24 Hours 10/05/18 10/06/18 10/07/18 23:59 23:59 23:59 Intake Total 2528 / 2528 200 / 200 50 / 50 Output Total 1305 / 1305 0 / 0 Balance 1223 / 1223 188 / 188 50 / 50 Microbiology Past 72 Hours 10/05/18 04:10 Urine Culture - Preliminary Urine Catheter - Hall Culture exhibits no growth. Laboratory Tests Past 24 Hrs 10/04/18 10/06/18 10/06/18 23:40 21:20 23:23 Eos Smear Total Cells No Eosinophils Seen Specimen Type ART Sample Site R Radial pH 7.28 L Bicarbonate Actual 17.3 L POC Total CO2 18 Base Excess -9 L O2 Saturation 79 L ABG pCO2 36.9 ABG pO2 49 L Armond Test NA O2 Delivery Device Nasal Can Liter Flow 5.0 Blood Gas Notified Whom HOSP MD Sodium Potassium Chloride Carbon Dioxide Anion Gap BUN Creatinine Estim Creat Clear Calc Est GFR (MDRD) Af Amer Est GFR (MDRD) Non-Af BUN/Creatinine Ratio Glucose Calcium Ammonia 48.0 H 10/06/18 10/06/18 10/07/18 23:47 Unknown 05:46 Eos Smear Total Cells Specimen Type ART Sample Site R Brachial pH 7.25 L Bicarbonate Actual 17.4 L POC Total CO2 19 Base Excess -10 L O2 Saturation 97 ABG pCO2 39.6 ABG pO2 102 H Armond Test POS O2 Delivery Device Nasal Can Liter Flow 6.0 Blood Gas Notified Whom HOSP Sodium 131 L 132 L Potassium 5.1 5.6 H Chloride 96 L 100 Carbon Dioxide 21.0 15.0 L Anion Gap 14 17 H BUN 76 H 62 H Creatinine 5.89 H 5.81 H Estim Creat Clear Calc 6.36 6.45 Est GFR (MDRD) Af Amer 9 L 9 L Est GFR (MDRD) Non-Af 7 L 7 L BUN/Creatinine Ratio 12.9 10.7 Glucose 48 L 89 Calcium 6.2 L* 6.0 L* Ammonia POC Glucose 10/07/18 10/06/18 10/06/18 06:58 22:02 09:55 POC Glucose 78 65 L 119 H Medical Necessity - Tobacco Use Smoking Status: Former smoker Tobacco Use: Non-smoker Assessment/Plan All Active Problems (Last Reviewed 10/05/18 @ 13:56 by Wilda Alexis PA-C) BRENDA (acute kidney injury) (Acute) Myalgia (Acute) Abdominal distention (Acute) Hyponatremia (Acute) Hx of bladder repair surgery (Resolved) H/O: hysterectomy (Resolved) 1-Acute kidney injury on chronic kidney disease. Baseline creatinine 1.58 mg/dL. Chronic kidney disease is presumably from nephrosclerosis due to hypertension and aging. acute kidney injury is most probably from prolonged prerenal status resulting in ATN from rhabdo ? CKD is pending. FeNA is 8.5% Kidney ultrasound showed right atrophic kidney. No hydronephrosis in the left kidney. Patient is now hemodialysis dependent for metabolic support. hemodialysis was started on October 05. current hemodialysis access is right IJ non tunneled cath no recovery of kidney function. Anuric Will arrange for 3rd session of HD today : blood flow rate 300, Dialysate flow rate 600. UF none Keep MAP >65 Continue holding ACEI Check renal function in am 2- Hyperkalemia: K is 5.6. Will do HD session today with 1 K for the 1st hour then 2 K [id number]. Mild. due to BRENDA. should improve if patient can tolerate UF 4- change is mental status. DDX septic Vs TN. Ordered BC, ABG, lactic acid and LDH, gave one dose of vancomycin and started zosyn Pt might need ICU care Renal team will continue to follow. Discussed with Dr.Terelestky Nara Ramirez MD
--- NOTE | 2018-10-07 09:00 | NURSING ---
Talked w/ Dr. Scott regarding pt's condition as 84% on 6lnc, aWaRe awaiting WBC results, order for ABG's. also awaRe did CT of head and abdomen. Discussed updating family. daughter lyn called at his request. aware she is getting the and coming in.
[2018-10-07 09:06] LABS: Bedside Glucose 79 mg/dL (70-110)
[2018-10-07 09:26] LABS: Base Excess -11 mmol/L (-2 to +2); Bicarbonate 16.3 mmol/L (22-26); Blood Gas Specimen Type ART; O2 Delivery Device Nasal Can; PO2 130 mmHG (75-100); SITE R Radial; SO2 99 % (95-99); Time Given 917; Total Carbon Dioxide 17 mmol/L; pCO2 35.9 mmHg (35-45); pH 7.27 (7.35-7.45)
--- NOTE | 2018-10-07 09:45 | NURSING ---
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 Bernal to see pt.
[2018-10-07 09:59] LABS: Differential Indicated MANUAL DIFF; Hematocrit 26.5 % (37-47); Hemoglobin 8.6 g/dl (12.0-15.0); Mean Corp Hgb Conc 32.5 g/gl (32-36); Mean Corpuscular Hgb 30.5 pg (27.0-32.0); Mean Platelet Vol. 12.1 fl (6.2-12.0); POSITIVE COUNT NO; POSITIVE DIFFERENTIAL NO; POSITIVE MORPHOLOGY YES; Platelet Count 193 K/mm3 (150-450); RBC Distribution Width CV 14.8 % (11.6-14.6); RBC Distribution Width SD 50.6 fl (35.1-43.9); Red Blood Count 2.82 M/mm3 (4.2-5.4); White Blood Count 17.4 K/mm3 (4.4-11.0)
[2018-10-07 10:00] LABS: Bedside Glucose 66 mg/dL (70-110)
[2018-10-07 10:00] LABS: Absolute Nucleated RBC Count 0.05 10^3/uL (0-5); NRBC Flagged by Analyzer 0.3 % (0-5)
[2018-10-07] MEDS: Dextrose 50%-Water 25 GM/50 ML DISP.SYRIN IV ×2 (10:04→20:57)
--- NOTE | 2018-10-07 10:08 | NURSING ---
report called to icu
--- NOTE | 2018-10-07 10:10 | NURSING ---
pt transported to ICU7 on monitor and 6lnc. Dr. Bernal at bedside informed of administration of D50 for OT of 66. Nuzhat MONTANEZ at bedside also aware. family in waiting room
[2018-10-07 10:11] LABS: Lactic Acid 5.5 mmol/L (0.4-2.0)
[2018-10-07 10:18] LABS: Creatine Kinase BB 0 % (0)
[2018-10-07 10:22] LABS: Hep B Surface Antibodies Non Reactive (.); Hepatitis B Core AB IgM Positive (Negative)
[2018-10-07 10:51] LABS: Lymphocyte 4 % (19-41); Monocyte 2 % (0-10); Neutrophil-Band 45 % (0-5); Neutrophil-Segmented 49 % (47-70); Total Cells Counted 100 (MANUAL DIFF)
[2018-10-07 10:52] LABS: Anisocytosis 2+; Hypochromasia 1+; Platelet Estimate ADEQUATE (ADEQ)
[2018-10-07 10:53] LABS: Absolute Neutrophil Count 16.4 X10^3/uL (2.0-7.7); Neutrophil # 16.36 X10^3/uL (2.7-7.7)
--- NOTE | 2018-10-07 10:54 | PCM.CON.CC ---
Problem List (1) Respiratory failure with hypoxia Status: Acute Qualifiers: Chronicity: acute Qualified Code(s): J96.01 - Acute respiratory failure with hypoxia (2) Abdominal aortic aneurysm Status: Chronic Qualifiers: Presence of rupture: without rupture Qualified Code(s): I71.4 - Abdominal aortic aneurysm, without rupture (3) BRENDA (acute kidney injury) Status: Acute (4) Myalgia Status: Acute (5) Hyponatremia Status: Acute (6) Hx of bladder repair surgery Status: Resolved (7) H/O: hysterectomy Status: Resolved (8) Essential (primary) hypertension Status: Chronic (9) HLD (hyperlipidemia) Status: Chronic Qualifiers: Hyperlipidemia type: pure hypercholesterolemia Qualified Code(s): E78.00 - Pure hypercholesterolemia, unspecified; E78.0 - Pure hypercholesterolemia (10) Atherosclerosis of coronary artery of [place] heart without angina pectoris Status: Chronic Qualifiers: Coronary Disease-Associated Artery/Lesion type: [place] artery Qualified Code(s): I25.10 - Atherosclerotic heart disease of [place] coronary artery without angina pectoris Reason for Consult Date of Consultation: 10/07/18 Reason for Consultation: Acute hypoxic respiratory failure History of Present Illness: The patient is a 83 year old F, with past medical history listed below, who presented to [facility] on 10/04/2018 secondary to report of diffuse myalgias, nausea and vomiting. Patient reportedly had had symptoms for about a week, but on presentation to the ED was found to be hyponatremic with acute kidney injury and a creatinine of 8.08. Daughter had noted some bruising of the tongue, but no seizure activity has been reported. Patient has been maintained up on medical surgical unit after being seen by nephrology. Patient has had an EEG and an MRI that were within normal limits and patient was reportedly walking on presentation. Over the course of the next 3 days, patient was noted to be more lethargic with respiratory distress. Patient started to require supplemental oxygen to maintain saturations. Patient has been on ceftriaxone secondary to a probable UTI, but azithromycin was added overnight. Patient was also noted to have a marginal blood glucose of 65. Called by hospitalist at approximately 9:15 AM secondary to respiratory status. Patient was seen shortly thereafter. On presentation, patient was pale and clammy. Patient had not been hooked up to dialysis yet. ABG was noted to be 7.27/30 5.9/1 30/99% with a bicarb of 16. Patient was immediately transferred to the intensive care unit. After arrival to the intensive care unit, patient was noted to have a lactate of 5.5. Patient is not hypotensive, febrile or tachycardic at this time. She was noted to be hypoglycemic at 66 and did receive an amp of D50. Blood cultures have been obtained. After arrival to the intensive care unit, we were called and told that she was positive for IgM hepatitis B. Patient's mentation did improve somewhat following IV glucose. Past Medical History Past Medical History (Chronic Problems): Chronic Problems (Last Reviewed 10/05/18 @ 13:56 by Wilda Alexis PA-C) Abdominal aortic aneurysm (Chronic) Essential (primary) hypertension (Chronic) HLD (hyperlipidemia) (Chronic) Atherosclerosis of coronary artery of [place] heart without angina pectoris (Chronic) Medical History: Medical History (Last Reviewed 10/05/18 @ 13:56 by Wilda Alexis PA-C) H/O: hysterectomy (Resolved) Z90.710 Essential (primary) hypertension (Chronic) I10 HLD (hyperlipidemia) (Chronic) E78.5 Atherosclerosis of coronary artery of [place] heart without angina pectoris (Chronic) I25.10 Allergies No Known Allergies Allergy (Verified 10/04/18 08:26) Home Medications: Ambulatory Orders Medication Instructions Recorded Enalapril Maleate [Vasotec] 10 mg PO BID 10/01/14 Levothyroxine [Synthroid] 75 mcg PO DAILY 10/01/14 Pravastatin [Pravachol] 80 mg PO DAILY 10/01/14 Fenofibrate [Lofibra] 54 mg PO BID 02/26/16 Propranolol HCl [Inderal Xl (Beta 120 mg PO DAILY 02/26/16 K[place])] Amlodipine [Norvasc] 5 mg PO QHS 09/28/18 Amlodipine Besylate [Norvasc] 10 mg PO DAILY 10/04/18 Aspirin E.C. [Ecotrin] 81 mg PO DAILY@0800 10/04/18 Chlorella 5 capsule PO BID 10/04/18 Cholecalciferol (VIT D3) [Vitamin 1 tab PO DAILY 10/04/18 D3] Fluticasone 0.05% [Flonase Nasal 1 spray NASAL DAILY PRN 10/04/18 [place]] [place]-3/Dha/Epa/Fish Oil [Fish Oil 1 each PO BID 10/04/18 500 mg Softgel] Ubidecarenone [Coq10] 50 mg PO DAILY 10/04/18 Surgical History: Surgical History (Last Reviewed 10/05/18 @ 13:56 by Wilda Alexis PA-C) Hx of bladder repair surgery (Resolved) Z98.890 S/P AAA (abdominal aortic aneurysm) repair Z98.890, Z86.79 Psychiatric History: No pertinent psych hx Lives: Alone Smoking Status: Former smoker Tobacco Use: Non-smoker Alcohol: None Drugs: None - *Family History Maternal Family History: Family History (Last Reviewed 10/05/18 @ 13:56 by Wilda Alexis PA-C) Father No problems noted. Mother Breast cancer Brother No problems noted. Review of Systems Unable to obtain accurate/complete ROS d/t: Current mental status Patient Problems: Active and Suspected Problems (Last Reviewed 10/05/18 @ 13:56 by Wilda Alexis PA-C) BRENDA (acute kidney injury) (Acute) Myalgia (Acute) Abdominal distention (Acute) Hyponatremia (Acute) Respiratory failure with hypoxia (Acute) Encephalopathy (Acute) Objective: Imaging was personally reviewed. The abdomen did show small bilateral pleural effusions with underlying atelectasis. There was also some increased stranding noted in the right hemicolon - Physical Exam General: Confused, Disoriented, - - Pale and clammy on initial evaluation, but improved following glucose HEENT: Atraumatic, PERRLA, EOMI, Normocephalic, - - No scleral icterus or injection noted. Oral: Moist Mucosa, No Gingival or Mucosal Lesions/ Ulcerations, - - Hematoma noted on the left tongue Neck: Supple, No JVD, No Nodes, Trachea Midline, - - Right temporary hemodialysis catheter clean, dry and intact Lungs: No rhonchi, No wheeze, No rales, Diminished, - - Poor effort. Accessory muscles noted initially, but improved following BiPAP Cardiovascular: Regular rate, Regular Rhythm, Normal S1, Normal S2, No murmurs, No rub noted, No Gallop Abdomen: Bowel Sounds Present, Soft, Non Tender, Non-Distended, Obese Extremities: No clubbing, No cyanosis, No edema, Capillary Refill Less than 3 Seconds Skin: No rashes, No breakdown Musculoskeletal: No Tenderness to Palpation of Joints or Extremities Lymphatic: No Cervical, Supraclavicular, or Inguinal Adenopathy Neurological: - - Patient with little to no movement noted of the right side. Sensation appears to be intact. Not following commands at this time, but will open eyes to voice Psych/Mental Status: Flat Affect Vital Signs Temp Pulse Resp BP Pulse Ox 36.2 C L 70 28 H 137/98 H 94 10/07/18 10:00 10/07/18 10:00 10/07/18 10:00 10/07/18 10:00 10/07/18 10:00 Oxygen Flow Rate (L/min) 4 Oxygen Delivery Method Nasal Cannula Weight: 75.75 kg Body Mass Index (BMI) 28.6 Intake and Output for Last 24 Hours 10/05/18 10/06/18 10/07/18 23:59 23:59 23:59 Intake Total 2528 / 2528 200 / 200 50 / 50 Output Total 1305 / 1305 0 / 0 Balance 1223 / 1223 188 / 188 50 / 50 Microbiology Past 72 Hours 10/05/18 04:10 Urine Culture - Preliminary Urine Catheter - Hall Culture exhibits no growth. Laboratory Tests Past 24 Hrs 10/04/18 10/05/18 10/06/18 23:40 05:24 05:24 WBC RBC Hgb Hct MCV MCH MCHC RDW RDW Differential Plt Count MPV Neut % (Auto) Absolute Neuts (auto) Absolute Lymphs (auto) Total Counted Neutrophils % (Manual) Band Neutrophils % Lymphocytes % (Manual) Monocytes % (Manual) Nucleated RBC % Diff Path Review Platelet Estimate Hypochromasia Anisocytosis Absolute Retic Eos Smear Total Cells No Eosinophils Seen Specimen Type Sample Site pH Bicarbonate Actual POC Total CO2 Base Excess O2 Saturation ABG pCO2 ABG pO2 Armond Test O2 Delivery Device Liter Flow Blood Gas Notified Whom Blood Gas Notified Time Sodium Potassium Chloride Carbon Dioxide Anion Gap BUN Creatinine Estim Creat Clear Calc Est GFR (MDRD) Af Amer Est GFR (MDRD) Non-Af BUN/Creatinine Ratio Glucose Lactic Acid Calcium Ammonia Lactate Dehydrogenase CK Isoenzymes 103 CK-MM (CK-3) 99 CK-MB (CK-2) 1 CK-BB (CK-1) 0 Macro CK 0 Troponin I Hep Bs Antigen Negative Hep Bs Antibody Non Reactive Hep B Core IgM Ab Positive H 10/06/18 10/06/18 10/06/18 21:20 23:23 23:47 WBC RBC Hgb Hct MCV MCH MCHC RDW RDW Differential Plt Count MPV Neut % (Auto) Absolute Neuts (auto) Absolute Lymphs (auto) Total Counted Neutrophils % (Manual) Band Neutrophils % Lymphocytes % (Manual) Monocytes % (Manual) Nucleated RBC % Diff Path Review Platelet Estimate Hypochromasia Anisocytosis Absolute Retic Eos Smear Total Cells Specimen Type ART ART Sample Site R Radial R Brachial pH 7.28 L 7.25 L Bicarbonate Actual 17.3 L 17.4 L POC Total CO2 18 19 Base Excess -9 L -10 L O2 Saturation 79 L 97 ABG pCO2 36.9 39.6 ABG pO2 49 L 102 H Armond Test NA POS O2 Delivery Device Nasal Can Nasal Can Liter Flow 5.0 6.0 Blood Gas Notified Whom HOSP MD HOSP Blood Gas Notified Time Sodium Potassium Chloride Carbon Dioxide Anion Gap BUN Creatinine Estim Creat Clear Calc Est GFR (MDRD) Af Amer Est GFR (MDRD) Non-Af BUN/Creatinine Ratio Glucose Lactic Acid Calcium Ammonia 48.0 H Lactate Dehydrogenase CK Isoenzymes CK-MM (CK-3) CK-MB (CK-2) CK-BB (CK-1) Macro CK Troponin I Hep Bs Antigen Hep Bs Antibody Hep B Core IgM Ab 10/07/18 10/07/18 10/07/18 05:46 09:19 09:25 WBC 17.4 H RBC 2.82 L Hgb 8.6 L Hct 26.5 L MCV 94.0 MCH 30.5 MCHC 32.5 RDW 14.8 H RDW Differential 50.6 H Plt Count 193 MPV 12.1 H Neut % (Auto) Not Reportable Absolute Neuts (auto) 16.4 H Absolute Lymphs (auto) 0.70 L Total Counted 100 Neutrophils % (Manual) 49 Band Neutrophils % 45 H Lymphocytes % (Manual) 4 L Monocytes % (Manual) 2 Nucleated RBC % 0.3 Diff Path Review May foll Platelet Estimate ADEQUATE Hypochromasia 1+ Anisocytosis 2+ Absolute Retic 0.05 Eos Smear Total Cells Specimen Type ART Sample Site R Radial pH 7.27 L Bicarbonate Actual 16.3 L POC Total CO2 17 Base Excess -11 L O2 Saturation 99 ABG pCO2 35.9 ABG pO2 130 H Armond Test O2 Delivery Device Nasal Can Liter Flow 9.0 Blood Gas Notified Whom [facility] Blood Gas Notified Time 917 Sodium 132 L Potassium 5.6 H Chloride 100 Carbon Dioxide 15.0 L Anion Gap 17 H BUN 62 H Creatinine 5.81 H Estim Creat Clear Calc 6.45 Est GFR (MDRD) Af Amer 9 L Est GFR (MDRD) Non-Af 7 L BUN/Creatinine Ratio 10.7 Glucose 89 Lactic Acid Calcium 6.0 L* Ammonia Lactate Dehydrogenase CK Isoenzymes CK-MM (CK-3) CK-MB (CK-2) CK-BB (CK-1) Macro CK Troponin I Hep Bs Antigen Hep Bs Antibody Hep B Core IgM Ab 10/07/18 10/07/18 09:25 09:25 WBC RBC Hgb Hct MCV MCH MCHC RDW RDW Differential Plt Count MPV Neut % (Auto) Absolute Neuts (auto) Absolute Lymphs (auto) Total Counted Neutrophils % (Manual) Band Neutrophils % Lymphocytes % (Manual) Monocytes % (Manual) Nucleated RBC % Diff Path Review Platelet Estimate Hypochromasia Anisocytosis Absolute Retic Eos Smear Total Cells Specimen Type Sample Site pH Bicarbonate Actual POC Total CO2 Base Excess O2 Saturation ABG pCO2 ABG pO2 Armond Test O2 Delivery Device Liter Flow Blood Gas Notified Whom Blood Gas Notified Time Sodium Potassium Chloride Carbon Dioxide Anion Gap BUN Creatinine Estim Creat Clear Calc Est GFR (MDRD) Af Amer Est GFR (MDRD) Non-Af BUN/Creatinine Ratio Glucose Lactic Acid 5.5 H* Calcium Ammonia Lactate Dehydrogenase Pending CK Isoenzymes CK-MM (CK-3) CK-MB (CK-2) CK-BB (CK-1) Macro CK Troponin I Pending Hep Bs Antigen Hep Bs Antibody Hep B Core IgM Ab POC Glucose 10/07/18 10/07/18 10/07/18 09:57 08:57 06:58 POC Glucose 66 L 79 78 10/06/18 22:02 POC Glucose 65 L Clinical Impression(s) from Imaging Studies Renal Ultrasound 10/04/18 10:43 IMPRESSION: 1. Nonvisualization of the right kidney secondary to severe atrophy. 2. Normal sonographic appearance of the left kidney. Electronically Signed: Margaret Wright MD at 12:01 EST , Service support , KUB X-Ray 10/04/18 11:53 IMPRESSION: Prominent fecal retention in the right hemicolon with gaseous distended loops of transverse colon. No evidence of small bowel obstruction Electronically Signed: Sree Espinoza DO at 15:33 EST Tel , Service support , Brain MRI 10/05/18 07:11 IMPRESSION: No acute intracranial abnormality or evidence of masses. Electronically Signed: Ashlie Herrera MD at 12:42 EST Tel , Service support , Chest X-Ray 10/06/18 21:10 IMPRESSION: Nonspecific left basilar opacities may be secondary to underlying atelectasis and/or evolving pneumonia. Cardiomegaly. Electronically Signed: Cristina You MD at 21:33 EST Tel , Service support , Brain CT 10/07/18 07:35 IMPRESSION: Chronic involutional changes of the brain. Electronically Signed: Isidro Araujo MD at 8:58 EST Tel [phone], Service support , Abdomen/Pelvis CT 10/07/18 08:01 IMPRESSION: New small bilateral pleural effusions with underlying infiltration and/or atelectasis. Mildly distended fluid filled right hemicolon with mild degree of increased markings in the mesenteric fat in the right lower quadrant. Cholelithiasis. Electronically Signed: Isidro Araujo MD at 9:04 EST Tel [phone], Service support , Assessment/Plan Active and Suspected Problems (Last Reviewed 10/05/18 @ 13:56 by Wilda Alexis PA-C) BRENDA (acute kidney injury) (Acute) Myalgia (Acute) Abdominal distention (Acute) Hyponatremia (Acute) Respiratory failure with hypoxia (Acute) Encephalopathy (Acute) RECOMMENDATIONS: 1. Initiate BiPAP at 12/5 centimeters of water 2. Continue with hemodialysis as scheduled 3. Repeat neurologic evaluation following hemodialysis 4. Okay to discontinue azithromycin, infectious disease has been consulted 5. Consider initiation of vancomycin IMPRESSIONS: 1. Acute hypoxic respiratory failure Patient's ABG showing increased AA gradient. Patient also has significant acidosis that is not being compensated for an accessory muscle use. Patient is not to be intubated, but family is open to BiPAP therapy. Patient will be placed on BiPAP therapy to help with respiratory muscle fatigue. CT of the abdomen did show some mild pleural effusions and atelectasis, but this would not likely lead to these findings. We will continue to monitor closely. 2. Mixed metabolic acidosis secondary to renal failure and lactic acidosis Patient with significant acidosis on my evaluation. Patient is not compensating for these from a respiratory standpoint. It is unclear if this is related to medications. Patient is not hypotensive or tachycardic at this time. Patient has not had any documented fevers. Patient has come back positive with hepatitis B IgM. Patient did have a recent catheter placement. Addition of vancomycin may be reasonable. No seizure activity has been noted. Vision is not on metformin. 3. Right-sided weakness Unknown last normal at this time. Patient reportedly has been decreased mental status and movement for the past 2 days. Patient was hypoglycemic initially and this has been corrected. Patient also has hyperkalemia and metabolic acidosis. Patient would not be a candidate for TPA. We will continue with addressing electrolyte abnormalities. Patient may require an MRI or repeat EEG in the future. 4. Metabolic encephalopathy Patient with multiple possible etiologies for metabolic encephalopathy including renal failure, hyperkalemia and acute hepatitis B. Patient does not have any nuchal rigidity. Patient's transaminases are significantly elevated, likely secondary to hepatitis related to acute hep B. 5. Essential hypertension/CAD/atrophic right kidney/advanced age Complicates care, management, recovery and prognosis. Baseline medications have been held. 6. CODE STATUS Discussed with son and daughter at the bedside. Patient is a DNR Comfort Care arrest without intubation. Addendum 1613: Family meeting at approximately 2:45 PM this afternoon discussing patient's current situation. Family is aware of the new finding of hepatitis. Family does not have any idea of the possible exposure for hepatitis B. Patient's family does report that the patient has taken multiple herbals in the past. They are unable to name the herbals, but are willing to bring them in for review. Also discussed with the family about CODE STATUS. Family reaffirmed the patient would be a DNR Comfort Care arrest without intubation. Family understands that the patient's situation is critical. TIME: 80 minutes of critical care time spent addressing patient's acute hypoxic respiratory failure, metabolic acidosis, right-sided weakness, review of all data and collaboration with care team (9:15 AM to 11:15 AM, 2:45 PM to 3:15 PM) Code Visit Procedures: 16365 Critial Care Addl 30 Min 9xxxx: [id number] Critical care first hour
--- NOTE | 2018-10-07 11:02 | CON.PCM_ITS ---
Problem List (1) Respiratory failure with hypoxia Status: Acute Qualifiers: Chronicity: acute Qualified Code(s): J96.01 - Acute respiratory failure with hypoxia (2) Abdominal aortic aneurysm Status: Chronic Qualifiers: Presence of rupture: without rupture Qualified Code(s): I71.4 - Abdominal aortic aneurysm, without rupture (3) BRENDA (acute kidney injury) Status: Acute (4) Myalgia Status: Acute (5) Hyponatremia Status: Acute (6) Hx of bladder repair surgery Status: Resolved (7) H/O: hysterectomy Status: Resolved (8) Essential (primary) hypertension Status: Chronic (9) HLD (hyperlipidemia) Status: Chronic Qualifiers: Hyperlipidemia type: pure hypercholesterolemia Qualified Code(s): E78.00 - Pure hypercholesterolemia, unspecified; E78.0 - Pure hypercholesterolemia (10) Atherosclerosis of coronary artery of [place] heart without angina pectoris Status: Chronic Qualifiers: Coronary Disease-Associated Artery/Lesion type: [place] artery Qualified Code(s): I25.10 - Atherosclerotic heart disease of [place] coronary artery without angina pectoris Reason for Consult Date of Consultation: 10/07/18 Reason for Consultation: Acute hypoxic respiratory failure History of Present Illness: The patient is a 83 year old F, with past medical history listed below, who presented to [facility] on 10/04/2018 secondary to report of diffuse myalgias, nausea and vomiting. Patient reportedly had had symptoms for about a week, but on presentation to the ED was found to be hyponatremic with acute kidney injury and a creatinine of 8.08. Daughter had noted some bruising of the tongue, but no seizure activity has been reported. Patient has been maintained up on medical surgical unit after being seen by nephrology. Patient has had an EEG and an MRI that were within normal limits and patient was reportedly walking on presentation. Over the course of the next 3 days, patient was noted to be more lethargic with respiratory distress. Patient started to require supplemental oxygen to maintain saturations. Patient has been on ceftriaxone secondary to a probable UTI, but azithromycin was added overnight. Patient was also noted to have a marginal blood glucose of 65. Called by hospitalist at approximately 9:15 AM secondary to respiratory status. Patient was seen shortly thereafter. On presentation, patient was pale and clammy. Patient had not been hooked up to dialysis yet. ABG was noted to be 7.27/30 5.9/1 30/99% with a bicarb of 16. Patient was immediately transferred to the intensive care unit. After arrival to the intensive care unit, patient was noted to have a lactate of 5.5. Patient is not hypotensive, febrile or tachycardic at this time. She was noted to be hypoglycemic at 66 and did receive an amp of D50. Blood cultures have been obtained. After arrival to the intensive care unit, we were called and told that she was positive for IgM hepatitis B. Patient's mentation did improve somewhat following IV glucose. Past Medical History Past Medical History (Chronic Problems): Chronic Problems (Last Reviewed 10/05/18 @ 13:56 by Wilda Alexis PA-C) Abdominal aortic aneurysm (Chronic) Essential (primary) hypertension (Chronic) HLD (hyperlipidemia) (Chronic) Atherosclerosis of coronary artery of [place] heart without angina pectoris (Chronic) Medical History: Medical History (Last Reviewed 10/05/18 @ 13:56 by Wilda Alexis PA-C) H/O: hysterectomy (Resolved) Z90.710 Essential (primary) hypertension (Chronic) I10 HLD (hyperlipidemia) (Chronic) E78.5 Atherosclerosis of coronary artery of [place] heart without angina pectoris (Chronic) I25.10 Allergies No Known Allergies Allergy (Verified 10/04/18 08:26) Home Medications: Ambulatory Orders Medication Instructions Recorded Enalapril Maleate [Vasotec] 10 mg PO BID 10/01/14 Levothyroxine [Synthroid] 75 mcg PO DAILY 10/01/14 Pravastatin [Pravachol] 80 mg PO DAILY 10/01/14 Fenofibrate [Lofibra] 54 mg PO BID 02/26/16 Propranolol HCl [Inderal Xl (Beta 120 mg PO DAILY 02/26/16 [place])] Amlodipine [Norvasc] 5 mg PO QHS 09/28/18 Amlodipine Besylate [Norvasc] 10 mg PO DAILY 10/04/18 Aspirin E.C. [Ecotrin] 81 mg PO DAILY@0800 10/04/18 Chlorella 5 capsule PO BID 10/04/18 Cholecalciferol (VIT D3) [Vitamin 1 tab PO DAILY 10/04/18 D3] Fluticasone 0.05% [Flonase Nasal 1 spray NASAL DAILY PRN 10/04/18 [place]] Ormsby-3/Dha/Epa/Fish Oil [Fish Oil 1 each PO BID 10/04/18 500 mg Softgel] Ubidecarenone [Coq10] 50 mg PO DAILY 10/04/18 Surgical History: Surgical History (Last Reviewed 10/05/18 @ 13:56 by Wilda Alexis PA-C) Hx of bladder repair surgery (Resolved) Z98.890 S/P AAA (abdominal aortic aneurysm) repair Z98.890, Z86.79 Psychiatric History: No pertinent psych hx Lives: Alone Smoking Status: Former smoker Tobacco Use: Non-smoker Alcohol: None Drugs: None - *Family History Maternal Family History: Family History (Last Reviewed 10/05/18 @ 13:56 by Wilda Alexis PA-C) Father No problems noted. Mother Breast cancer Brother No problems noted. Review of Systems Unable to obtain accurate/complete ROS d/t: Current mental status Patient Problems: Active and Suspected Problems (Last Reviewed 10/05/18 @ 13:56 by Wilda Alexis PA-C) BRENDA (acute kidney injury) (Acute) Myalgia (Acute) Abdominal distention (Acute) Hyponatremia (Acute) Respiratory failure with hypoxia (Acute) Encephalopathy (Acute) Objective: Imaging was personally reviewed. The abdomen did show small bilateral pleural effusions with underlying atelectasis. There was also some increased stranding noted in the right hemicolon - Physical Exam General: Confused, Disoriented, - - Pale and clammy on initial evaluation, but improved following glucose HEENT: Atraumatic, PERRLA, EOMI, Normocephalic, - - No scleral icterus or injection noted. Oral: Moist Mucosa, No Gingival or Mucosal Lesions/ Ulcerations, - - Hematoma noted on the left tongue Neck: Supple, No JVD, No Nodes, Trachea Midline, - - Right temporary hemodialysis catheter clean, dry and intact Lungs: No rhonchi, No wheeze, No rales, Diminished, - - Poor effort. Accessory muscles noted initially, but improved following BiPAP Cardiovascular: Regular rate, Regular Rhythm, Normal S1, Normal S2, No murmurs, No rub noted, No Gallop Abdomen: Bowel Sounds Present, Soft, Non Tender, Non-Distended, Obese Extremities: No clubbing, No cyanosis, No edema, Capillary Refill Less than 3 Seconds Skin: No rashes, No breakdown Musculoskeletal: No Tenderness to Palpation of Joints or Extremities Lymphatic: No Cervical, Supraclavicular, or Inguinal Adenopathy Neurological: - - Patient with little to no movement noted of the right side. Sensation appears to be intact. Not following commands at this time, but will open eyes to voice Psych/Mental Status: Flat Affect Vital Signs Temp Pulse Resp BP Pulse Ox 36.2 C L 70 28 H 137/98 H 94 10/07/18 10:00 10/07/18 10:00 10/07/18 10:00 10/07/18 10:00 10/07/18 10:00 Oxygen Flow Rate (L/min) 4 Oxygen Delivery Method Nasal Cannula Weight: 75.75 kg Body Mass Index (BMI) 28.6 Intake and Output for Last 24 Hours 10/05/18 10/06/18 10/07/18 23:59 23:59 23:59 Intake Total 2528 / 2528 200 / 200 50 / 50 Output Total 1305 / 1305 0 / 0 Balance 1223 / 1223 188 / 188 50 / 50 Microbiology Past 72 Hours 10/05/18 04:10 Urine Culture - Preliminary Urine Catheter - Hall Culture exhibits no growth. Laboratory Tests Past 24 Hrs 10/04/18 10/05/18 10/06/18 23:40 05:24 05:24 WBC RBC Hgb Hct MCV MCH MCHC RDW RDW Differential Plt Count MPV Neut % (Auto) Absolute Neuts (auto) Absolute Lymphs (auto) Total Counted Neutrophils % (Manual) Band Neutrophils % Lymphocytes % (Manual) Monocytes % (Manual) Nucleated RBC % Diff Path Review Platelet Estimate Hypochromasia Anisocytosis Absolute Retic Eos Smear Total Cells No Eosinophils Seen Specimen Type Sample Site pH Bicarbonate Actual POC Total CO2 Base Excess O2 Saturation ABG pCO2 ABG pO2 Armond Test O2 Delivery Device Liter Flow Blood Gas Notified Whom Blood Gas Notified Time Sodium Potassium Chloride Carbon Dioxide Anion Gap BUN Creatinine Estim Creat Clear Calc Est GFR (MDRD) Af Amer Est GFR (MDRD) Non-Af BUN/Creatinine Ratio Glucose Lactic Acid Calcium Ammonia Lactate Dehydrogenase CK Isoenzymes 103 CK-MM (CK-3) 99 CK-MB (CK-2) 1 CK-BB (CK-1) 0 Macro CK 0 Troponin I Hep Bs Antigen Negative Hep Bs Antibody Non Reactive Hep B Core IgM Ab Positive H 10/06/18 10/06/18 10/06/18 21:20 23:23 23:47 WBC RBC Hgb Hct MCV MCH MCHC RDW RDW Differential Plt Count MPV Neut % (Auto) Absolute Neuts (auto) Absolute Lymphs (auto) Total Counted Neutrophils % (Manual) Band Neutrophils % Lymphocytes % (Manual) Monocytes % (Manual) Nucleated RBC % Diff Path Review Platelet Estimate Hypochromasia Anisocytosis Absolute Retic Eos Smear Total Cells Specimen Type ART ART Sample Site R Radial R Brachial pH 7.28 L 7.25 L Bicarbonate Actual 17.3 L 17.4 L POC Total CO2 18 19 Base Excess -9 L -10 L O2 Saturation 79 L 97 ABG pCO2 36.9 39.6 ABG pO2 49 L 102 H Armond Test NA POS O2 Delivery Device Nasal Can Nasal Can Liter Flow 5.0 6.0 Blood Gas Notified Whom HOSP MD HOSP Blood Gas Notified Time Sodium Potassium Chloride Carbon Dioxide Anion Gap BUN Creatinine Estim Creat Clear Calc Est GFR (MDRD) Af Amer Est GFR (MDRD) Non-Af BUN/Creatinine Ratio Glucose Lactic Acid Calcium Ammonia 48.0 H Lactate Dehydrogenase CK Isoenzymes CK-MM (CK-3) CK-MB (CK-2) CK-BB (CK-1) Macro CK Troponin I Hep Bs Antigen Hep Bs Antibody Hep B Core IgM Ab 10/07/18 10/07/18 10/07/18 05:46 09:19 09:25 WBC 17.4 H RBC 2.82 L Hgb 8.6 L Hct 26.5 L MCV 94.0 MCH 30.5 MCHC 32.5 RDW 14.8 H RDW Differential 50.6 H Plt Count 193 MPV 12.1 H Neut % (Auto) Not Reportable Absolute Neuts (auto) 16.4 H Absolute Lymphs (auto) 0.70 L Total Counted 100 Neutrophils % (Manual) 49 Band Neutrophils % 45 H Lymphocytes % (Manual) 4 L Monocytes % (Manual) 2 Nucleated RBC % 0.3 Diff Path Review May foll Platelet Estimate ADEQUATE Hypochromasia 1+ Anisocytosis 2+ Absolute Retic 0.05 Eos Smear Total Cells Specimen Type ART Sample Site R Radial pH 7.27 L Bicarbonate Actual 16.3 L POC Total CO2 17 Base Excess -11 L O2 Saturation 99 ABG pCO2 35.9 ABG pO2 130 H Armond Test O2 Delivery Device Nasal Can Liter Flow 9.0 Blood Gas Notified Whom [facility] Blood Gas Notified Time 917 Sodium 132 L Potassium 5.6 H Chloride 100 Carbon Dioxide 15.0 L Anion Gap 17 H BUN 62 H Creatinine 5.81 H Estim Creat Clear Calc 6.45 Est GFR (MDRD) Af Amer 9 L Est GFR (MDRD) Non-Af 7 L BUN/Creatinine Ratio 10.7 Glucose 89 Lactic Acid Calcium 6.0 L* Ammonia Lactate Dehydrogenase CK Isoenzymes CK-MM (CK-3) CK-MB (CK-2) CK-BB (CK-1) Macro CK Troponin I Hep Bs Antigen Hep Bs Antibody Hep B Core IgM Ab 10/07/18 10/07/18 09:25 09:25 WBC RBC Hgb Hct MCV MCH MCHC RDW RDW Differential Plt Count MPV Neut % (Auto) Absolute Neuts (auto) Absolute Lymphs (auto) Total Counted Neutrophils % (Manual) Band Neutrophils % Lymphocytes % (Manual) Monocytes % (Manual) Nucleated RBC % Diff Path Review Platelet Estimate Hypochromasia Anisocytosis Absolute Retic Eos Smear Total Cells Specimen Type Sample Site pH Bicarbonate Actual POC Total CO2 Base Excess O2 Saturation ABG pCO2 ABG pO2 Armond Test O2 Delivery Device Liter Flow Blood Gas Notified Whom Blood Gas Notified Time Sodium Potassium Chloride Carbon Dioxide Anion Gap BUN Creatinine Estim Creat Clear Calc Est GFR (MDRD) Af Amer Est GFR (MDRD) Non-Af BUN/Creatinine Ratio Glucose Lactic Acid 5.5 H* Calcium Ammonia Lactate Dehydrogenase Pending CK Isoenzymes CK-MM (CK-3) CK-MB (CK-2) CK-BB (CK-1) Macro CK Troponin I Pending Hep Bs Antigen Hep Bs Antibody Hep B Core IgM Ab POC Glucose 10/07/18 10/07/18 10/07/18 09:57 08:57 06:58 POC Glucose 66 L 79 78 10/06/18 22:02 POC Glucose 65 L Clinical Impression(s) from Imaging Studies Renal Ultrasound 10/04/18 10:43 IMPRESSION: 1. Nonvisualization of the right kidney secondary to severe atrophy. 2. Normal sonographic appearance of the left kidney. Electronically Signed: Margaret Wright MD at 12:01 EST , Service support , KUB X-Ray 10/04/18 11:53 IMPRESSION: Prominent fecal retention in the right hemicolon with gaseous distended loops of transverse colon. No evidence of small bowel obstruction Electronically Signed: Sree Espinoza DO at 15:33 EST Tel , Service support , Brain MRI 10/05/18 07:11 IMPRESSION: No acute intracranial abnormality or evidence of masses. Electronically Signed: Ashlie Herrera MD at 12:42 EST Tel , Service support , Chest X-Ray 10/06/18 21:10 IMPRESSION: Nonspecific left basilar opacities may be secondary to underlying atelectasis and/or evolving pneumonia. Cardiomegaly. Electronically Signed: Cristina You MD at 21:33 EST Tel , Service support , Brain CT 10/07/18 07:35 IMPRESSION: Chronic involutional changes of the brain. Electronically Signed: Isidro Araujo MD at 8:58 EST Tel [phone], Service support , Abdomen/Pelvis CT 10/07/18 08:01 IMPRESSION: New small bilateral pleural effusions with underlying infiltration and/or atelectasis. Mildly distended fluid filled right hemicolon with mild degree of increased markings in the mesenteric fat in the right lower quadrant. Cholelithiasis. Electronically Signed: Isidro Araujo MD at 9:04 EST Tel [phone], Service support , Assessment/Plan Active and Suspected Problems (Last Reviewed 10/05/18 @ 13:56 by Wilda Alexis PA-C) BRENDA (acute kidney injury) (Acute) Myalgia (Acute) Abdominal distention (Acute) Hyponatremia (Acute) Respiratory failure with hypoxia (Acute) Encephalopathy (Acute) RECOMMENDATIONS: 1. Initiate BiPAP at 12/5 centimeters of water 2. Continue with hemodialysis as scheduled 3. Repeat neurologic evaluation following hemodialysis 4. Okay to discontinue azithromycin, infectious disease has been consulted 5. Consider initiation of vancomycin IMPRESSIONS: 1. Acute hypoxic respiratory failure Patient's ABG showing increased AA gradient. Patient also has significant acidosis that is not being compensated for an accessory muscle use. Patient is not to be intubated, but family is open to BiPAP therapy. Patient will be placed on BiPAP therapy to help with respiratory muscle fatigue. CT of the abdomen did show some mild pleural effusions and atelectasis, but this would not likely lead to these findings. We will continue to monitor closely. 2. Mixed metabolic acidosis secondary to renal failure and lactic acidosis Patient with significant acidosis on my evaluation. Patient is not compensating for these from a respiratory standpoint. It is unclear if this is related to medications. Patient is not hypotensive or tachycardic at this time. Patient has not had any documented fevers. Patient has come back positive with hepatitis B IgM. Patient did have a recent catheter placement. Addition of vancomycin may be reasonable. No seizure activity has been noted. Vision is not on metformin. 3. Right-sided weakness Unknown last normal at this time. Patient reportedly has been decreased mental status and movement for the past 2 days. Patient was hypoglycemic initially and this has been corrected. Patient also has hyperkalemia and metabolic acidosis. Patient would not be a candidate for TPA. We will continue with addressing electrolyte abnormalities. Patient may require an MRI or repeat EEG in the future. 4. Metabolic encephalopathy Patient with multiple possible etiologies for metabolic encephalopathy including renal failure, hyperkalemia and acute hepatitis B. Patient does not have any nuchal rigidity. Patient's transaminases are significantly elevated, likely secondary to hepatitis related to acute hep B. 5. Essential hypertension/CAD/atrophic right kidney/advanced age Complicates care, management, recovery and prognosis. Baseline medications have been held. 6. CODE STATUS Discussed with son and daughter at the bedside. Patient is a DNR Comfort Care arrest without intubation. Addendum [id number]: Family meeting at approximately 2:45 PM this afternoon discussing patient's current situation. Family is aware of the new finding of hepatitis. Family does not have any idea of the possible exposure for hepatitis B. Patient's family does report that the patient has taken multiple herbals in the past. They are unable to name the herbals, but are willing to bring them in for review. Also discussed with the family about CODE STATUS. Family reaffirmed the patient would be a DNR Comfort Care arrest without intubation. Family understands that the patient's situation is critical. TIME: 80 minutes of critical care time spent addressing patient's acute hypoxic respiratory failure, metabolic acidosis, right-sided weakness, review of all data and collaboration with care team (9:15 AM to 11:15 AM, 2:45 PM to 3:15 PM) Code Visit Procedures: [id number] Critial Care Addl 30 Min 9xxxx: [id number] Critical care first hour
[2018-10-07 11:13] LABS: LDH > 4000 U/L (84-246)
[2018-10-07 11:25] LABS: AST(SGOT) 9291 U/L (15-37); Alanine Aminotransfer ALT/SGPT 2429 U/L (13-56); Alkaline Phosphatase 76 U/L (45-117); Bilirubin, Direct 0.62 mg/dL (0.00-0.30); Globulin 2.9 g/dL (2.2-4.2); Protein, Total 4.9 g/dL (6.4-8.2)
--- NOTE | 2018-10-07 11:51 | PCM.HP.ID ---
Problem List (1) Encephalopathy Status: Acute Reason for Consult: encephalopathy Consulted by: Dr. Medel History of Present Illness: The patient is a 83 year old F with CKD who presented to ED 10/04 with several days of not feeling well associated with back pain, n/v. Found to have Cr over 8. UA collected, wbc was 10-25, some leuk esterase seen. No reported urinary symptoms. UA was repeated early in AM on 10/05 after admission, and showed wbc 0 and neg leuk esterase. Ceftriaxone was started, ucx finalized as neg. Started on HD via temp RIJ catheter. On 10/07 had some confusion, azithro added. This AM much worse mental status, moved to icu, CT done of abd and head. Abx changed to vanc. ROS unobtainable due to mental status. - Medical History Past Medical History (Chronic Problems): Chronic Problems (Last Reviewed 10/05/18 @ 13:56 by Wilda Alexis PA-C) Abdominal aortic aneurysm (Chronic) Essential (primary) hypertension (Chronic) HLD (hyperlipidemia) (Chronic) Atherosclerosis of coronary artery of [place] heart without angina pectoris (Chronic) Allergies/Adverse Reactions: Allergies No Known Allergies Allergy (Verified 10/04/18 08:26) Home Medications: Ambulatory Orders Medication Instructions Recorded Enalapril Maleate [Vasotec] 10 mg PO BID 10/01/14 Levothyroxine [Synthroid] 75 mcg PO DAILY 10/01/14 Pravastatin [Pravachol] 80 mg PO DAILY 10/01/14 Fenofibrate [Lofibra] 54 mg PO BID 02/26/16 Propranolol HCl [Inderal Xl (Beta 120 mg PO DAILY 02/26/16 Kaleb)] Amlodipine [Norvasc] 5 mg PO QHS 09/28/18 Amlodipine Besylate [Norvasc] 10 mg PO DAILY 10/04/18 Aspirin E.C. [Ecotrin] 81 mg PO DAILY@0800 10/04/18 Chlorella 5 capsule PO BID 10/04/18 Cholecalciferol (VIT D3) [Vitamin 1 tab PO DAILY 10/04/18 D3] Fluticasone 0.05% [Flonase Nasal 1 spray NASAL DAILY PRN 10/04/18 Adrian] [place]-3/Dha/Epa/Fish Oil [Fish Oil 1 each PO BID 10/04/18 500 mg Softgel] Ubidecarenone [Coq10] 50 mg PO DAILY 10/04/18 - Social History SMOKING STATUS:: Former smoker Vital Signs Temp Pulse Resp BP Pulse Ox 97.1 F L 57 L 28 H 137/98 H 98 10/07/18 10:00 10/07/18 10:30 10/07/18 10:00 10/07/18 10:00 10/07/18 10:15 Oxygen Flow Rate (L/min) 4 Oxygen Delivery Method Bi-pap Weight: 75.75 kg Body Mass Index (BMI) 28.6 Microbiology Past 72 Hours 10/05/18 04:10 Urine Culture - Preliminary Urine Catheter - Hall Culture exhibits no growth. Laboratory Tests Past 24 Hrs 10/04/18 10/05/18 10/06/18 23:40 05:24 05:24 WBC RBC Hgb Hct MCV MCH MCHC RDW RDW Differential Plt Count MPV Neut % (Auto) Absolute Neuts (auto) Absolute Lymphs (auto) Total Counted Neutrophils % (Manual) Band Neutrophils % Lymphocytes % (Manual) Monocytes % (Manual) Nucleated RBC % Diff Path Review Platelet Estimate Hypochromasia Anisocytosis Absolute Retic Eos Smear Total Cells No Eosinophils Seen Specimen Type Sample Site pH Bicarbonate Actual POC Total CO2 Base Excess O2 Saturation ABG pCO2 ABG pO2 Armond Test O2 Delivery Device Liter Flow Blood Gas Notified Whom Blood Gas Notified Time Sodium Potassium Chloride Carbon Dioxide Anion Gap BUN Creatinine Estim Creat Clear Calc Est GFR (MDRD) Af Amer Est GFR (MDRD) Non-Af BUN/Creatinine Ratio Glucose Lactic Acid Calcium Total Bilirubin Direct Bilirubin AST ALT Alkaline Phosphatase Ammonia Lactate Dehydrogenase CK Isoenzymes 103 CK-MM (CK-3) 99 CK-MB (CK-2) 1 CK-BB (CK-1) 0 Macro CK 0 Troponin I Total Protein Albumin Globulin Hep Bs Antigen Negative Hep Bs Antibody Non Reactive Hep B Core IgM Ab Positive H 10/06/18 10/06/18 10/06/18 21:20 23:23 23:47 WBC RBC Hgb Hct MCV MCH MCHC RDW RDW Differential Plt Count MPV Neut % (Auto) Absolute Neuts (auto) Absolute Lymphs (auto) Total Counted Neutrophils % (Manual) Band Neutrophils % Lymphocytes % (Manual) Monocytes % (Manual) Nucleated RBC % Diff Path Review Platelet Estimate Hypochromasia Anisocytosis Absolute Retic Eos Smear Total Cells Specimen Type ART ART Sample Site R Radial R Brachial pH 7.28 L 7.25 L Bicarbonate Actual 17.3 L 17.4 L POC Total CO2 18 19 Base Excess -9 L -10 L O2 Saturation 79 L 97 ABG pCO2 36.9 39.6 ABG pO2 49 L 102 H Armond Test NA POS O2 Delivery Device Nasal Can Nasal Can Liter Flow 5.0 6.0 Blood Gas Notified Whom HOSP HOSP Blood Gas Notified Time Sodium Potassium Chloride Carbon Dioxide Anion Gap BUN Creatinine Estim Creat Clear Calc Est GFR (MDRD) Af Amer Est GFR (MDRD) Non-Af BUN/Creatinine Ratio Glucose Lactic Acid Calcium Total Bilirubin Direct Bilirubin AST ALT Alkaline Phosphatase Ammonia 48.0 H Lactate Dehydrogenase CK Isoenzymes CK-MM (CK-3) CK-MB (CK-2) CK-BB (CK-1) Macro CK Troponin I Total Protein Albumin Globulin Hep Bs Antigen Hep Bs Antibody Hep B Core IgM Ab 10/07/18 10/07/18 10/07/18 05:46 09:19 09:25 WBC 17.4 H RBC 2.82 L Hgb 8.6 L Hct 26.5 L MCV 94.0 MCH 30.5 MCHC 32.5 RDW 14.8 H RDW Differential 50.6 H Plt Count 193 MPV 12.1 H Neut % (Auto) Not Reportable Absolute Neuts (auto) 16.4 H Absolute Lymphs (auto) 0.70 L Total Counted 100 Neutrophils % (Manual) 49 Band Neutrophils % 45 H Lymphocytes % (Manual) 4 L Monocytes % (Manual) 2 Nucleated RBC % 0.3 Diff Path Review May foll Platelet Estimate ADEQUATE Hypochromasia 1+ Anisocytosis 2+ Absolute Retic 0.05 Eos Smear Total Cells Specimen Type ART Sample Site R Radial pH 7.27 L Bicarbonate Actual 16.3 L POC Total CO2 17 Base Excess -11 L O2 Saturation 99 ABG pCO2 35.9 ABG pO2 130 H Armond Test O2 Delivery Device Nasal Can Liter Flow 9.0 Blood Gas Notified Whom [facility] Blood Gas Notified Time 917 Sodium 132 L Potassium 5.6 H Chloride 100 Carbon Dioxide 15.0 L Anion Gap 17 H BUN 62 H Creatinine 5.81 H Estim Creat Clear Calc 6.45 Est GFR (MDRD) Af Amer 9 L Est GFR (MDRD) Non-Af 7 L BUN/Creatinine Ratio 10.7 Glucose 89 Lactic Acid Calcium 6.0 L* Total Bilirubin Direct Bilirubin AST ALT Alkaline Phosphatase Ammonia Lactate Dehydrogenase CK Isoenzymes CK-MM (CK-3) CK-MB (CK-2) CK-BB (CK-1) Macro CK Troponin I Total Protein Albumin Globulin Hep Bs Antigen Hep Bs Antibody Hep B Core IgM Ab 10/07/18 10/07/18 10/07/18 09:25 09:25 09:25 WBC RBC Hgb Hct MCV MCH MCHC RDW RDW Differential Plt Count MPV Neut % (Auto) Absolute Neuts (auto) Absolute Lymphs (auto) Total Counted Neutrophils % (Manual) Band Neutrophils % Lymphocytes % (Manual) Monocytes % (Manual) Nucleated RBC % Diff Path Review Platelet Estimate Hypochromasia Anisocytosis Absolute Retic Eos Smear Total Cells Specimen Type Sample Site pH Bicarbonate Actual POC Total CO2 Base Excess O2 Saturation ABG pCO2 ABG pO2 Armond Test O2 Delivery Device Liter Flow Blood Gas Notified Whom Blood Gas Notified Time Sodium Potassium Chloride Carbon Dioxide Anion Gap BUN Creatinine Estim Creat Clear Calc Est GFR (MDRD) Af Amer Est GFR (MDRD) Non-Af BUN/Creatinine Ratio Glucose Lactic Acid 5.5 H* Calcium Total Bilirubin 1.00 Direct Bilirubin 0.62 H AST 9291 H ALT 2429 H Alkaline Phosphatase 76 Ammonia Lactate Dehydrogenase > 4000 H CK Isoenzymes CK-MM (CK-3) CK-MB (CK-2) CK-BB (CK-1) Macro CK Troponin I 0.020 Total Protein 4.9 L Albumin 2.0 L Globulin 2.9 Hep Bs Antigen Hep Bs Antibody Hep B Core IgM Ab - Other Studies Radiology: [] reviewed Other Studies: [] Route of nutrition/ use of supplements: [] Nutritional Intake: [] IV Site: [] Hall Catheter: [] - Physical Exam General: - - ill appearing, somnolent HEENT: PERRLA Neck: Supple, No Nodes, - - R neck HD line Lungs: Diminished Cardiovascular: Bradycardic Abdomen: Soft, Non-Distended, - - Epigastric tenderness Extremities: No edema Skin: No rashes IV Site: Peripheral, Central Line, without redness Musculoskeletal: No Tenderness to Palpation of Joints or Extremities Neurological: - - unable to follow commands - Assessment/Plan Antibiotics: [] Assessment/Plan: [] Active and Suspected Problems (Last Reviewed 10/05/18 @ 13:56 by Wilda Alexis PA-C) BRENDA (acute kidney injury) (Acute) Myalgia (Acute) Abdominal distention (Acute) Hyponatremia (Acute) Respiratory failure with hypoxia (Acute) Fulminant liver failure - AST 70 on arrival, AST was normal. Hep B core IgM was (+), neg Ag and Ab. Now LFTs with AST 9000 and ALT 2500. LDH over 4000. Platelets are ok. Having abd pain on palpation, CT showed some RUQ inflammation, much worse encephalopathy despite several days of HD. Shock liver seems unlikely given that she has not been hypotensive. Have to be worried about hep B as the cause. Will check hep B pcr, Hep Be Ag, hiv, hep C, and Hep A IgM. Given dose of vanc, will add zosyn for empiric coverage of GI and lung delfina. Will discuss with pharmacy about availability of lamivudine or entecavir, adjust based on IHD. Other causes of liver failure will also need to be examined. Will order tylenol level. Abnormal UA - doubt she had uti on presentation. Repeat UA prior to starting abx was normal in terms of wbc, Leuk est, and nitrite. Initial sample likely just with some concentration due to BRENDA. Ucx was finalized as neg. Thank you, will follow, d/w Dr. Bernal and Dr. Scott. Critically ill with overall poor prognosis. At risk as well for aspiration given mental status and NIPPV.
[2018-10-07 13:32] LABS: Reflex Lactate? Y
[2018-10-07 13:47] LABS: Acetaminophen (Tylenol) Level 2.7 ug/mL (10.0-30.0)
[2018-10-07 14:07] LABS: HIV - WCH Non-Reactive (Nonreactive)
--- NOTE | 2018-10-07 15:00 | NURSING ---
Dr. Bernal and Dr. Scott present in pt room, speaking w/family. pt condition, labs, plan of care disc. questions answered.
[2018-10-07 16:00] LABS: International Normalized Ratio 1.7; Prothrombin Time (Protime)PT. 20.4 SECONDS (11.7-14.9)
[2018-10-07 16:01] LABS: Partial Thromboplast Time 42.8 Seconds (24.1-36.2)
[2018-10-07] MEDS: 0.9% NaCl IVPB Med Flush (250 mL) 15 ML IV (16:01)
--- NOTE | 2018-10-07 16:02 | CHAPLAIN ---
Type of Pastoral Visit ___ Initial Visit ___ Follow-up Visit ___ On-call Visit ___ General Patient Visit ___ Spiritual Assessment _x__ Family Conference ___ Bereavement ___ Rapid Response ___ Code Blue ___ Other (describe below) Pastoral Care Referral From ___ Patient ___ Family _x__ Nurse ___ Physician ___ Chipper Operator ___ Channel Director ___ Other (describe below) Sacrament/Intervention _x__ Active listening ___ Anointing ___ Protestant ___ Bereavement ___ Communion ___ Samara exploration ___ ___ Life review ___ Prayer ___ Reconciliation ___ Sacrament of Sick _x__ Supportive presence ___ Wedding ___ Other (describe below) Pastoral Comments RN notified this conservation engineer that family members were gathered in the waiting area and would be having a family conference with the doctors; this conservation engineer went to waiting area to find many family members and to engage them in conversation and to assess need or desire for spiritual or emotional support; family was friendly and welcoming but there were no specific requests; accompanied family to conference and again offered support at conclusion of meeting;
[2018-10-07 16:41] LABS: Bedside Glucose 74 mg/dL (70-110)
[2018-10-07 16:41] LABS: Bedside Glucose 27 mg/dL (70-110)
[2018-10-07 16:59] LABS: Lactic Acid 8.7 mmol/L (0.4-2.0)
[2018-10-07] MEDS: Dextrose 5%/0.9% NaCl 1,000 ML 50 ML IV (17:34)
[2018-10-07] MEDS: Piperacil/Tazobactam 3.375 GM/50 ML ML IV ×2 (17:34→21:32)
[2018-10-07 17:46] LABS: Base Excess -13 mmol/L (-2 to +2); Bicarbonate 14.7 mmol/L (22-26); Blood Gas Specimen Type ART; EPAP 6; FI02 25; IPAP 15; PO2 74 mmHG (75-100); RR 16; SITE L Brachial; SO2 92 % (95-99); Time Given 1740; Total Carbon Dioxide 16 mmol/L; pCO2 34.5 mmHg (35-45); pH 7.24 (7.35-7.45)
[2018-10-07 17:56] LABS: Bedside Glucose 125 mg/dL (70-110)
[2018-10-07 17:56] LABS: Bedside Glucose 145 mg/dL (70-110)
[2018-10-07 18:15] LABS: Bedside Glucose 111 mg/dL (70-110)
[2018-10-07 19:15] LABS: Bedside Glucose 80 mg/dL (70-110)
[2018-10-07 19:15] LABS: Bedside Glucose 92 mg/dL (70-110)
--- NOTE | 2018-10-07 19:31 | PCM.PROGNOTE ---
Patient Problems: Active and Suspected Problems (Last Reviewed 10/05/18 @ 13:56 by Wilda Alexis PA-C) BRENDA (acute kidney injury) (Acute) Myalgia (Acute) Abdominal distention (Acute) Hyponatremia (Acute) Respiratory failure with hypoxia (Acute) Encephalopathy (Acute) Subjective: Patient was seen and examined earlier today, this morning I received a call from nursing at 7:30 in the morning that the patient was unresponsive to verbal stimuli and had rapid respirations, she had been seen by the night hospitalist and he had drawn some labs and she was acidotic, CBC was pending at the time I saw the patient this morning, I ordered a CT of the brain and CT of the abdomen because on examination, her abdomen did appear to be diffusely tender. She was not able to vocalize any complaints. Before dialysis started this morning, the patient's vitals remained stable but due to her rapid respirations, another blood gas was performed which showed continuing acidosis, I then had pulmonary medicine see the patient who felt that the patient would benefit from BiPAP (after discussion with the patient's family, they did not want the patient to be intubated if necessary) and the patient was transferred to ICU for further care. A liver profile was obtained and before the results were known, her hepatitis B IgM antibody was positive. This puzzled me as I do not understand how this patient who is at low risk would have a positive hepatitis B IgM antibody. Patient's liver enzymes then resulted and were shown to be markedly elevated indicating that the patient was in liver failure. I had infectious diseases see the patient and the plan is for the patient be treated with antiviral agents, I then had a discussion with the lab here at the hospital and they are going to check on the validity of the hepatitis B IgM antibody test. Also, infectious diseases ordered a PCR viral count for hepatitis B. Later on this afternoon, a family conference was carried out in the patient's room in ICU with pulmonary medicine and myself, patient's family again did not want the patient to be intubated if it was required but was okay with BiPAP and okay with pressor agents if they were necessary. Dialysis was able to be carried out today. I also had extensive conversations with nephrology who suggested additional testing which was done. CT of the brain did not show any acute process, CT the abdomen did not show any acute process. This afternoon, patient went into atrial fibrillation with varying heart rates as high as the low 100s. - Physical Exam General: Well developed, Confused, Lethargic HEENT: Atraumatic, PERRLA, Normocephalic Neck: Supple, No Nuchal Rigidity, Trachea Midline, Thyroid Normal Size and Texture Lungs: Clear to auscultation, Normal air movement Cardiovascular: No murmurs, PMI Normal, Irregular Rate, No rub noted Abdomen: Bowel Sounds Present, Soft, Tender - Diffuse abdominal tenderness is noted Extremities: No edema, Capillary Refill Less than 3 Seconds Skin: No rashes, No breakdown Neurological: Cranial nerves II-XII grossly intact, - - Patient is not spontaneously moving extremities at this time Psych/Mental Status: - - Patient responds minimally to painful stimuli Vital Signs Temp Pulse Resp BP Pulse Ox 96.4 F L 111 H 19 H 87/57 L 95 10/07/18 18:00 10/07/18 18:00 10/07/18 18:00 10/07/18 18:00 10/07/18 18:00 Oxygen Flow Rate (L/min) 4 Oxygen Delivery Method Bi-pap Weight: 78.4 kg Body Mass Index (BMI) 28.6 Intake and Output for Last 24 Hours 10/05/18 10/06/18 10/07/18 23:59 23:59 23:59 Intake Total 2528 / 2528 200 / 200 633 / 633 Output Total 1305 / 1305 1100 / 1100 Balance 1223 / 1223 188 / 188 -467 / -467 Microbiology Past 72 Hours 10/05/18 04:10 Urine Culture - Preliminary Urine Catheter - Hall Culture exhibits no growth. Laboratory Tests Past 24 Hrs 10/05/18 10/06/18 10/06/18 05:24 05:24 21:20 WBC RBC Hgb Hct MCV MCH MCHC RDW RDW Differential Plt Count MPV Neut % (Auto) Absolute Neuts (auto) Absolute Lymphs (auto) Total Counted Neutrophils % (Manual) Band Neutrophils % Lymphocytes % (Manual) Monocytes % (Manual) Nucleated RBC % Diff Path Review Platelet Estimate Hypochromasia Anisocytosis Absolute Retic PT INR APTT Specimen Type Sample Site pH Bicarbonate Actual POC Total CO2 Base Excess O2 Saturation O2 % ABG pCO2 ABG pO2 Armond Test Respiration Rate O2 Delivery Device Liter Flow EPAP IPAP Blood Gas Notified Whom Blood Gas Notified Time Sodium Potassium Chloride Carbon Dioxide Anion Gap BUN Creatinine Estim Creat Clear Calc Est GFR (MDRD) Af Amer Est GFR (MDRD) Non-Af BUN/Creatinine Ratio Glucose Lactic Acid Calcium Total Bilirubin Direct Bilirubin AST ALT Alkaline Phosphatase Ammonia 48.0 H Lactate Dehydrogenase CK Isoenzymes 103 CK-MM (CK-3) 99 CK-MB (CK-2) 1 CK-BB (CK-1) 0 Macro CK 0 Troponin I Total Protein Albumin Globulin Acetaminophen Hepatitis A IgM Ab Hep Bs Antigen Negative Hep Bs Antibody Non Reactive Hep B Core IgM Ab Positive H Hepatitis Be Antigen Hepatitis C Ab (EIA) HIV 1&2 Antibody Miscellaneous Test 10/06/18 10/06/18 10/07/18 23:23 23:47 05:46 WBC RBC Hgb Hct MCV MCH MCHC RDW RDW Differential Plt Count MPV Neut % (Auto) Absolute Neuts (auto) Absolute Lymphs (auto) Total Counted Neutrophils % (Manual) Band Neutrophils % Lymphocytes % (Manual) Monocytes % (Manual) Nucleated RBC % Diff Path Review Platelet Estimate Hypochromasia Anisocytosis Absolute Retic PT INR APTT Specimen Type ART ART Sample Site R Radial R Brachial pH 7.28 L 7.25 L Bicarbonate Actual 17.3 L 17.4 L POC Total CO2 18 19 Base Excess -9 L -10 L O2 Saturation 79 L 97 O2 % ABG pCO2 36.9 39.6 ABG pO2 49 L 102 H Armodn Test NA POS Respiration Rate O2 Delivery Device Nasal Can Nasal Can Liter Flow 5.0 6.0 EPAP IPAP Blood Gas Notified Whom HOSP MD HOSP MD Blood Gas Notified Time Sodium 132 L Potassium 5.6 H Chloride 100 Carbon Dioxide 15.0 L Anion Gap 17 H BUN 62 H Creatinine 5.81 H Estim Creat Clear Calc 6.45 Est GFR (MDRD) Af Amer 9 L Est GFR (MDRD) Non-Af 7 L BUN/Creatinine Ratio 10.7 Glucose 89 Lactic Acid Calcium 6.0 L* Total Bilirubin Direct Bilirubin AST ALT Alkaline Phosphatase Ammonia Lactate Dehydrogenase CK Isoenzymes CK-MM (CK-3) CK-MB (CK-2) CK-BB (CK-1) Macro CK Troponin I Total Protein Albumin Globulin Acetaminophen Hepatitis A IgM Ab Hep Bs Antigen Hep Bs Antibody Hep B Core IgM Ab Hepatitis Be Antigen Hepatitis C Ab (EIA) HIV 1&2 Antibody Miscellaneous Test 10/07/18 10/07/18 10/07/18 09:19 09:25 09:25 WBC 17.4 H RBC 2.82 L Hgb 8.6 L Hct 26.5 L MCV 94.0 MCH 30.5 MCHC 32.5 RDW 14.8 H RDW Differential 50.6 H Plt Count 193 MPV 12.1 H Neut % (Auto) Not Reportable Absolute Neuts (auto) 16.4 H Absolute Lymphs (auto) 0.70 L Total Counted 100 Neutrophils % (Manual) 49 Band Neutrophils % 45 H Lymphocytes % (Manual) 4 L Monocytes % (Manual) 2 Nucleated RBC % 0.3 Diff Path Review May foll Platelet Estimate ADEQUATE Hypochromasia 1+ Anisocytosis 2+ Absolute Retic 0.05 PT INR APTT Specimen Type ART Sample Site R Radial pH 7.27 L Bicarbonate Actual 16.3 L POC Total CO2 17 Base Excess -11 L O2 Saturation 99 O2 % ABG pCO2 35.9 ABG pO2 130 H Armond Test Respiration Rate O2 Delivery Device Nasal Can Liter Flow 9.0 EPAP IPAP Blood Gas Notified Whom [facility] Blood Gas Notified Time 917 Sodium Potassium Chloride Carbon Dioxide Anion Gap BUN Creatinine Estim Creat Clear Calc Est GFR (MDRD) Af Amer Est GFR (MDRD) Non-Af BUN/Creatinine Ratio Glucose Lactic Acid 5.5 H* Calcium Total Bilirubin Direct Bilirubin AST ALT Alkaline Phosphatase Ammonia Lactate Dehydrogenase CK Isoenzymes CK-MM (CK-3) CK-MB (CK-2) CK-BB (CK-1) Macro CK Troponin I Total Protein Albumin Globulin Acetaminophen Hepatitis A IgM Ab Hep Bs Antigen Hep Bs Antibody Hep B Core IgM Ab Hepatitis Be Antigen Hepatitis C Ab (EIA) HIV 1&2 Antibody Miscellaneous Test 10/07/18 10/07/18 10/07/18 09:25 09:25 12:05 WBC RBC Hgb Hct MCV MCH MCHC RDW RDW Differential Plt Count MPV Neut % (Auto) Absolute Neuts (auto) Absolute Lymphs (auto) Total Counted Neutrophils % (Manual) Band Neutrophils % Lymphocytes % (Manual) Monocytes % (Manual) Nucleated RBC % Diff Path Review Platelet Estimate Hypochromasia Anisocytosis Absolute Retic PT INR APTT Specimen Type Sample Site pH Bicarbonate Actual POC Total CO2 Base Excess O2 Saturation O2 % ABG pCO2 ABG pO2 Armond Test Respiration Rate O2 Delivery Device Liter Flow EPAP IPAP Blood Gas Notified Whom Blood Gas Notified Time Sodium Potassium Chloride Carbon Dioxide Anion Gap BUN Creatinine Estim Creat Clear Calc Est GFR (MDRD) Af Amer Est GFR (MDRD) Non-Af BUN/Creatinine Ratio Glucose Lactic Acid Calcium Total Bilirubin 1.00 Direct Bilirubin 0.62 H AST 9291 H ALT 2429 H Alkaline Phosphatase 76 Ammonia Lactate Dehydrogenase > 4000 H CK Isoenzymes CK-MM (CK-3) CK-MB (CK-2) CK-BB (CK-1) Macro CK Troponin I 0.020 Total Protein 4.9 L Albumin 2.0 L Globulin 2.9 Acetaminophen Hepatitis A IgM Ab Pending Hep Bs Antigen Hep Bs Antibody Hep B Core IgM Ab Hepatitis Be Antigen Pending Hepatitis C Ab (EIA) Pending HIV 1&2 Antibody Miscellaneous Test 10/07/18 10/07/18 10/07/18 12:05 12:05 12:05 WBC RBC Hgb Hct MCV MCH MCHC RDW RDW Differential Plt Count MPV Neut % (Auto) Absolute Neuts (auto) Absolute Lymphs (auto) Total Counted Neutrophils % (Manual) Band Neutrophils % Lymphocytes % (Manual) Monocytes % (Manual) Nucleated RBC % Diff Path Review Platelet Estimate Hypochromasia Anisocytosis Absolute Retic PT 20.4 H INR 1.7 APTT 42.8 H Specimen Type Sample Site pH Bicarbonate Actual POC Total CO2 Base Excess O2 Saturation O2 % ABG pCO2 ABG pO2 Armond Test Respiration Rate O2 Delivery Device Liter Flow EPAP IPAP Blood Gas Notified Whom Blood Gas Notified Time Sodium Potassium Chloride Carbon Dioxide Anion Gap BUN Creatinine Estim Creat Clear Calc Est GFR (MDRD) Af Amer Est GFR (MDRD) Non-Af BUN/Creatinine Ratio Glucose Lactic Acid Calcium Total Bilirubin Direct Bilirubin AST ALT Alkaline Phosphatase Ammonia Lactate Dehydrogenase CK Isoenzymes CK-MM (CK-3) CK-MB (CK-2) CK-BB (CK-1) Macro CK Troponin I Total Protein Albumin Globulin Acetaminophen Hepatitis A IgM Ab Hep Bs Antigen Hep Bs Antibody Hep B Core IgM Ab Hepatitis Be Antigen Hepatitis C Ab (EIA) HIV 1&2 Antibody Non-Reactive Miscellaneous Test Pending 10/07/18 10/07/18 10/07/18 13:00 16:05 17:41 WBC RBC Hgb Hct MCV MCH MCHC RDW RDW Differential Plt Count MPV Neut % (Auto) Absolute Neuts (auto) Absolute Lymphs (auto) Total Counted Neutrophils % (Manual) Band Neutrophils % Lymphocytes % (Manual) Monocytes % (Manual) Nucleated RBC % Diff Path Review Platelet Estimate Hypochromasia Anisocytosis Absolute Retic PT INR APTT Specimen Type ART Sample Site L Brachial pH 7.24 L Bicarbonate Actual 14.7 L POC Total CO2 16 Base Excess -13 L O2 Saturation 92 L O2 % 25 ABG pCO2 34.5 L ABG pO2 74 L Armond Test NA Respiration Rate 16 O2 Delivery Device Bi / C PAP Liter Flow EPAP 6 IPAP 15 Blood Gas Notified Whom ICU Blood Gas Notified Time 1740 Sodium Potassium Chloride Carbon Dioxide Anion Gap BUN Creatinine Estim Creat Clear Calc Est GFR (MDRD) Af Amer Est GFR (MDRD) Non-Af BUN/Creatinine Ratio Glucose Lactic Acid 8.7 H* Calcium Total Bilirubin Direct Bilirubin AST ALT Alkaline Phosphatase Ammonia Lactate Dehydrogenase CK Isoenzymes CK-MM (CK-3) CK-MB (CK-2) CK-BB (CK-1) Macro CK Troponin I Total Protein Albumin Globulin Acetaminophen 2.7 L Hepatitis A IgM Ab Hep Bs Antigen Hep Bs Antibody Hep B Core IgM Ab Hepatitis Be Antigen Hepatitis C Ab (EIA) HIV 1&2 Antibody Miscellaneous Test POC Glucose 10/07/18 10/07/18 10/07/18 19:10 18:36 17:57 POC Glucose 92 80 111 H 10/07/18 10/07/18 10/07/18 17:26 16:46 16:34 POC Glucose 125 H 145 H 27 L* 10/07/18 10/07/18 10/07/18 14:38 09:57 08:57 POC Glucose 74 66 L 79 10/07/18 10/06/18 06:58 22:02 POC Glucose 78 65 L Medical Necessity - Tobacco Use Smoking Status: Former smoker Tobacco Use: Non-smoker Assessment/Plan All Active Problems (Last Reviewed 10/05/18 @ 13:56 by Wilda Alexis PA-C) BRENDA (acute kidney injury) (Acute) Myalgia (Acute) Abdominal distention (Acute) Hyponatremia (Acute) Respiratory failure with hypoxia (Acute) Encephalopathy (Acute) Hx of bladder repair surgery (Resolved) H/O: hysterectomy (Resolved) #1 acute liver failure-etiology is unclear at this time, again patient has a positive IgM antibody to hepatitis B, ID is participating in her care, antiviral medications will be given tomorrow #2 acute hypoxic respiratory failure-probably secondary to metabolic acidosis, patient remains on BiPAP at this time #3 acute renal failure-etiology unclear at this time, questionable ATN, patient underwent dialysis today #4 metabolic encephalopathy #5 metabolic acidosis/lactic acidosis-patient does not appear to have confirmed sepsis at this time #6 essential hypertension #7 atherosclerotic heart disease #8 hyperlipidemia #9 new onset atrial fibrillation, etiology unclear at this point, could be secondary to metabolic reasons-rate limiting agents will not be used at this time due to potential for hypotension, patient's heart rate will be monitored #10 acute hepatitis B-this is indicated by positive hepatitis B IgM antibody, the etiology of this again is unclear at this point, further tests will be carried out to confirm this, patient will be given antiviral drugs tomorrow by infectious diseases Code Visit Inpatient E&M: 72479 Subs Hosp L3
[2018-10-07] MEDS: 0.9% NaCl Peripheral Flush Adult/Peds IV (21:20)
[2018-10-07 21:50] LABS: Anion Gap 22 (5-15); BUN 43 mg/dL (7-18); BUN/Creat Ratio 10.2 RATIO (10-20); Calcium,Total 5.8 mg/dL (8.5-10.1); Chloride 103 mmol/L (98-107); Creatinine, Serum 4.21 mg/dL (0.55-1.02); EST Glomerular Filtration Rate 11 mL/min (>60); Est Glom Filt Rate - Afr Amer 13 mL/min (>60); Glucose 308 mg/dL (74-106); Magnesium 1.9 mg/dL (1.6-2.6); Phosphorus 7.1 mg/dL (2.5-4.9); Potassium 4.8 mmol/L (3.5-5.1); Sodium Level 139 mmol/L (136-145)
--- NOTE | 2018-10-07 21:50 | NURSING ---
Spoke to patient's POAKathryn on the phone and updated on ammonia level being high and that Lorna wants to place an NG tube and start lactulose through it. Kathryn stated that it is ok to insert NG tube.
[2018-10-07 22:35] LABS: Bedside Glucose 74 mg/dL (70-110)
[2018-10-07 22:35] LABS: Bedside Glucose 67 mg/dL (70-110)
[2018-10-07 22:35] LABS: Bedside Glucose 136 mg/dL (70-110)
[2018-10-07] MEDS: Lactulose 20 GM/30 ML UDC 30 GM PO (22:37)
--- NOTE | 2018-10-07 22:55 | RAD_ITS ---
STUDY: X-RAY - ABDOMEN/PELVIS REASON FOR EXAM: Female, 83 years old. NG tube placement TECHNIQUE: 2 AP supine abdominal views portable. COMPARISON: CT abdomen and pelvis 10/07/2018. FINDINGS: There is pleural thickening in the lung bases. An enteric tube distal sidehole and catheter tip projected over the stomach. There is air distention of bowel in the right mid abdomen seen on CT was consistent with the dilated fluid-filled cecum and ascending colon. There are few air-filled small bowel loops. Status post aortic endograft placement. There are diffuse degenerative changes of the visualized lumbar spine. RAD/Abdomen Single View (Portable) IMPRESSION: Enteric tube appears in good position. Continued air distention of bowel presumed cecum and ascending colon in the right mid abdomen. Electronically Signed: Luann Hughes MD at 0:30 EST , Service support ,
[2018-10-08] VITALS (35 sets, daily range): BP systolic 60–112; BP diastolic 38–86; PULSE 48–64; RESP 18–29; TEMP 36.8–37.1; O2SAT 99
[2018-10-08 00:15] LABS: Bedside Glucose 100 mg/dL (70-110)
[2018-10-08 00:15] LABS: Base Excess -16 mmol/L (-2 to +2); Bicarbonate 14.4 mmol/L (22-26); Blood Gas Specimen Type ART; EPAP 6; FI02 100; PO2 176 mmHG (75-100); SITE R Brachial; SO2 99 % (95-99); Total Carbon Dioxide 16 mmol/L; pCO2 48.8 mmHg (35-45); pH 7.08 (7.35-7.45)
[2018-10-08 00:15] LABS: Bedside Glucose 116 mg/dL (70-110)
[2018-10-08 00:15] LABS: Bedside Glucose 112 mg/dL (70-110)
[2018-10-08] MEDS: Sodium Bicarbonate 8.4% 50 ML Syringe 50 MEQ IV (00:35)
[2018-10-08 03:16] LABS: Bedside Glucose 88 mg/dL (70-110)
[2018-10-08 03:16] LABS: Bedside Glucose 111 mg/dL (70-110)
[2018-10-08 03:16] LABS: Bedside Glucose 96 mg/dL (70-110)
--- NOTE | 2018-10-08 05:00 | NURSING ---
Spoke to daughter about levophed and if patient requires any higher dose that a central line will need to be placed. Kathryn stated that she does not wish to do anything else until she speaks to Dr. Bernal this morning about her prognosis. Kathryn stated As I am sitting here and thinking about this I wonder why. She isn't going to get any better and we are just prolonging the inevitable. Given emotional support.
[2018-10-08] MEDS: Lactulose 20 GM/30 ML UDC 30 GM PO (05:17)
[2018-10-08 05:18] LABS: International Normalized Ratio 3.4; Partial Thromboplast Time 32.8 Seconds (24.1-36.2); Prothrombin Time (Protime)PT. 34.7 SECONDS (11.7-14.9)
[2018-10-08 05:20] LABS: Hematocrit 23.4 % (37-47); Hemoglobin 7.5 g/dl (12.0-15.0); Mean Corp Hgb Conc 32.1 g/gl (32-36); Mean Corpuscular Hgb 31.1 pg (27.0-32.0); Mean Corpuscular Volume 97.1 fL (81-99); Mean Platelet Vol. 11.3 fl (6.2-12.0); Platelet Count 84 K/mm3 (150-450); RBC Distribution Width CV 15.4 % (11.6-14.6); RBC Distribution Width SD 54.1 fl (35.1-43.9); Red Blood Count 2.41 M/mm3 (4.2-5.4)
[2018-10-08 05:21] LABS: Differential Indicated MANUAL DIFF; POSITIVE COUNT YES; POSITIVE DIFFERENTIAL NO; POSITIVE MORPHOLOGY YES
[2018-10-08 06:17] LABS: Corrected WBC 16.1 K/mm3 (4.4-11.0); Lymphocyte 7 % (19-41); Metamyelocyte 2 % (0-1); Monocyte 4 % (0-10); Neutrophil-Band 1 % (0-5); Neutrophil-Segmented 86 % (47-70); Nucleated Red Bld Cells,Manual 6 % (0-5); Platelet Estimate ADEQUATE (ADEQ); Red Cell Morphology NORM C+C NORMAL (NORM C&C); Total Cells Counted 100 (MANUAL DIFF); Toxic Granulation 2+; Vacuolated Cells 2+
[2018-10-08 06:18] LABS: Absolute Lymphocyte Count 1.13 X10^3/ul (0.83-4.51); Absolute Nucleated RBC Count 0.53 10^3/uL (0-5); Lymphocyte # 1.13 X10^3/ul (4.0); NRBC Flagged by Analyzer 3.1 % (0-5); Neutrophil # 14.01 X10^3/uL (2.7-7.7)
[2018-10-08 06:29] LABS: ALB/GLOB Ratio 0.6 RATIO (0.9-2.4); AST(SGOT) > 20000 U/L (15-37); Alanine Aminotransfer ALT/SGPT 6714 U/L (13-56); Albumin, Serum 1.5 g/dL (3.2-5.0); Alkaline Phosphatase 145 U/L (45-117); Anion Gap 25 (5-15); BUN 43 mg/dL (7-18); BUN/Creat Ratio 9.2 RATIO (10-20); Calcium,Total 6.2 mg/dL (8.5-10.1); Chloride 92 mmol/L (98-107); Creatinine, Serum 4.67 mg/dL (0.55-1.02); EST Glomerular Filtration Rate 10 mL/min (>60); Est Glom Filt Rate - Afr Amer 12 mL/min (>60); Estimated Creatinine Clearance 8.02 ml/min; Globulin 2.7 g/dL (2.2-4.2); Glucose 304 mg/dL (74-106); Magnesium 2.1 mg/dL (1.6-2.6); Phosphorus 8.7 mg/dL (2.5-4.9); Protein, Total 4.2 g/dL (6.4-8.2); Sodium Level 136 mmol/L (136-145)
[2018-10-08] MEDS: 0.9% NaCl Peripheral Flush Adult/Peds IV (06:29)
[2018-10-08] MEDS: Phytonadione (Vit K) 10 MG/ML Ampul PO (06:30)
[2018-10-08] MEDS: Dextrose 50%-Water 25 GM/50 ML DISP.SYRIN IV (06:38)
[2018-10-08 07:01] LABS: Bedside Glucose 75 mg/dL (70-110)
[2018-10-08 07:01] LABS: Bedside Glucose 69 mg/dL (70-110)
[2018-10-08 07:01] LABS: Bedside Glucose 76 mg/dL (70-110)
[2018-10-08 07:05] LABS: Bedside Glucose 132 mg/dL (70-110)
--- NOTE | 2018-10-08 07:51 | PN_ITS ---
Subjective: Patient with significant issues overnight. Patient did have to be initiated on Levophed secondary to hypotension. This is going through a peripheral line at this time. Patient also noted to have significant acidosis and was placed on a D5 bicarbonate drip. Patient is still required D50 boluses overnight. No bleeding is reported. Patient is not very interactive at this time. Patient has been on BiPAP consistently throughout the night. Pulse oximeter is not very reliable at this time. Patient's daughters at the bedside. She does not want to have any intervention such as arterial or central lines until she can discuss it with her brother and father. General: Lethargic, Non-Cooperative, - - RASS -3. HEENT: Atraumatic, PERRLA, EOMI, Normocephalic, - - No scleral icterus or injection appreciated. Oral: No Gingival or Mucosal Lesions/ Ulcerations, Dry Mucosa Neck: Supple, No JVD, No Nodes, Trachea Midline Lungs: No rhonchi, No wheeze, No rales, Diminished, - - Symmetric expansion. No dullness to percussion. Cardiovascular: Regular rate, Regular Rhythm, Normal S1, Normal S2, No murmurs, No rub noted, No Gallop Abdomen: Soft, Non Tender, Non-Distended, Hypoactive Bowel Sounds Extremities: No clubbing, No cyanosis, Capillary Refill Less than 3 Seconds, Edema Skin: - - No significant change from yesterday. Pasty appearance. Musculoskeletal: No Tenderness to Palpation of Joints or Extremities Lymphatic: No Cervical, Supraclavicular, or Inguinal Adenopathy Neurological: - - Patient minimally responsive. Pupils are sluggish. Positive cough reflex. Positive corneal reflex. Psych/Mental Status: Flat Affect Vital Signs Temp Pulse Resp BP Pulse Ox 37.1 C 62 20 H 100/52 L 99 10/08/18 04:00 10/08/18 07:00 10/08/18 07:00 10/08/18 07:00 10/08/18 00:00 Oxygen Flow Rate (L/min) 4 Oxygen Delivery Method Bi-pap Weight: 79.4 kg Body Mass Index (BMI) 28.6 Intake and Output for Last 24 Hours 10/06/18 10/07/18 10/08/18 23:59 23:59 23:59 Intake Total 200 / 200 633 / 633 2092.7 / 2092.7 Output Total 1100 / 1100 Balance 188 / 188 -467 / -467 2091.7 / 2091.7 Labs (Last 48 Hours) 10/04/18 10/05/18 10/06/18 23:40 05:24 05:24 WBC Corrected WBC RBC Hgb Hct MCV MCH MCHC RDW RDW Differential Plt Count MPV Neut % (Auto) Absolute Neuts (auto) Absolute Lymphs (auto) Total Counted Neutrophils % (Manual) Band Neutrophils % Lymphocytes % (Manual) Monocytes % (Manual) Metamyelocytes % Nucleated RBC % Nucleated RBCs/100 WBC Differential Comment Diff Path Review Toxic Granulation Platelet Estimate RBC Morphology Hypochromasia Anisocytosis Absolute Retic Eos Smear Total Cells No Eosinophils Seen PT INR APTT Specimen Type Sample Site pH Bicarbonate Actual POC Total CO2 Base Excess O2 Saturation O2 % ABG pCO2 ABG pO2 Armond Test Respiration Rate O2 Delivery Device Liter Flow EPAP IPAP Blood Gas Notified Whom Blood Gas Notified Time Sodium Potassium Chloride Carbon Dioxide Anion Gap BUN Creatinine Estim Creat Clear Calc Est GFR (MDRD) Af Amer Est GFR (MDRD) Non-Af BUN/Creatinine Ratio Glucose Lactic Acid Calcium Phosphorus Magnesium Total Bilirubin Direct Bilirubin AST ALT Alkaline Phosphatase Ammonia Lactate Dehydrogenase CK Isoenzymes 103 CK-MM (CK-3) 99 CK-MB (CK-2) 1 CK-BB (CK-1) 0 Macro CK 0 Troponin I Total Protein Albumin Globulin Albumin/Globulin Ratio Acetaminophen Hepatitis A IgM Ab Hep Bs Antigen Negative Hep Bs Antibody Non Reactive Hep B Core IgM Ab Positive H Hepatitis Be Antigen Hepatitis C Ab (EIA) HIV 1&2 Antibody Miscellaneous Test POC Glucose 10/06/18 10/06/18 10/06/18 09:55 21:20 22:02 WBC Corrected WBC RBC Hgb Hct MCV MCH MCHC RDW RDW Differential Plt Count MPV Neut % (Auto) Absolute Neuts (auto) Absolute Lymphs (auto) Total Counted Neutrophils % (Manual) Band Neutrophils % Lymphocytes % (Manual) Monocytes % (Manual) Metamyelocytes % Nucleated RBC % Nucleated RBCs/100 WBC Differential Comment Diff Path Review Toxic Granulation Platelet Estimate RBC Morphology Hypochromasia Anisocytosis Absolute Retic Eos Smear Total Cells PT INR APTT Specimen Type Sample Site pH Bicarbonate Actual POC Total CO2 Base Excess O2 Saturation O2 % ABG pCO2 ABG pO2 Armond Test Respiration Rate O2 Delivery Device Liter Flow EPAP IPAP Blood Gas Notified Whom Blood Gas Notified Time Sodium Potassium Chloride Carbon Dioxide Anion Gap BUN Creatinine Estim Creat Clear Calc Est GFR (MDRD) Af Amer Est GFR (MDRD) Non-Af BUN/Creatinine Ratio Glucose Lactic Acid Calcium Phosphorus Magnesium Total Bilirubin Direct Bilirubin AST ALT Alkaline Phosphatase Ammonia 48.0 H Lactate Dehydrogenase CK Isoenzymes CK-MM (CK-3) CK-MB (CK-2) CK-BB (CK-1) Macro CK Troponin I Total Protein Albumin Globulin Albumin/Globulin Ratio Acetaminophen Hepatitis A IgM Ab Hep Bs Antigen Hep Bs Antibody Hep B Core IgM Ab Hepatitis Be Antigen Hepatitis C Ab (EIA) HIV 1&2 Antibody Miscellaneous Test POC Glucose 119 H 65 L 10/06/18 10/06/18 10/06/18 23:23 23:47 Unknown WBC Corrected WBC RBC Hgb Hct MCV MCH MCHC RDW RDW Differential Plt Count MPV Neut % (Auto) Absolute Neuts (auto) Absolute Lymphs (auto) Total Counted Neutrophils % (Manual) Band Neutrophils % Lymphocytes % (Manual) Monocytes % (Manual) Metamyelocytes % Nucleated RBC % Nucleated RBCs/100 WBC Differential Comment Diff Path Review Toxic Granulation Platelet Estimate RBC Morphology Hypochromasia Anisocytosis Absolute Retic Eos Smear Total Cells PT INR APTT Specimen Type ART ART Sample Site R Radial R Brachial pH 7.28 L 7.25 L Bicarbonate Actual 17.3 L 17.4 L POC Total CO2 18 19 Base Excess -9 L -10 L O2 Saturation 79 L 97 O2 % ABG pCO2 36.9 39.6 ABG pO2 49 L 102 H Armond Test NA POS Respiration Rate O2 Delivery Device Nasal Can Nasal Can Liter Flow 5.0 6.0 EPAP IPAP Blood Gas Notified Whom HOSP MD HOSP MD Blood Gas Notified Time Sodium 131 L Potassium 5.1 Chloride 96 L Carbon Dioxide 21.0 Anion Gap 14 BUN 76 H Creatinine 5.89 H Estim Creat Clear Calc 6.36 Est GFR (MDRD) Af Amer 9 L Est GFR (MDRD) Non-Af 7 L BUN/Creatinine Ratio 12.9 Glucose 48 L Lactic Acid Calcium 6.2 L* Phosphorus Magnesium Total Bilirubin Direct Bilirubin AST ALT Alkaline Phosphatase Ammonia Lactate Dehydrogenase CK Isoenzymes CK-MM (CK-3) CK-MB (CK-2) CK-BB (CK-1) Macro CK Troponin I Total Protein Albumin Globulin Albumin/Globulin Ratio Acetaminophen Hepatitis A IgM Ab Hep Bs Antigen Hep Bs Antibody Hep B Core IgM Ab Hepatitis Be Antigen Hepatitis C Ab (EIA) HIV 1&2 Antibody Miscellaneous Test POC Glucose 10/07/18 10/07/18 10/07/18 05:46 06:58 08:57 WBC Corrected WBC RBC Hgb Hct MCV MCH MCHC RDW RDW Differential Plt Count MPV Neut % (Auto) Absolute Neuts (auto) Absolute Lymphs (auto) Total Counted Neutrophils % (Manual) Band Neutrophils % Lymphocytes % (Manual) Monocytes % (Manual) Metamyelocytes % Nucleated RBC % Nucleated RBCs/100 WBC Differential Comment Diff Path Review Toxic Granulation Platelet Estimate RBC Morphology Hypochromasia Anisocytosis Absolute Retic Eos Smear Total Cells PT INR APTT Specimen Type Sample Site pH Bicarbonate Actual POC Total CO2 Base Excess O2 Saturation O2 % ABG pCO2 ABG pO2 Armond Test Respiration Rate O2 Delivery Device Liter Flow EPAP IPAP Blood Gas Notified Whom Blood Gas Notified Time Sodium 132 L Potassium 5.6 H Chloride 100 Carbon Dioxide 15.0 L Anion Gap 17 H BUN 62 H Creatinine 5.81 H Estim Creat Clear Calc 6.45 Est GFR (MDRD) Af Amer 9 L Est GFR (MDRD) Non-Af 7 L BUN/Creatinine Ratio 10.7 Glucose 89 Lactic Acid Calcium 6.0 L* Phosphorus Magnesium Total Bilirubin Direct Bilirubin AST ALT Alkaline Phosphatase Ammonia Lactate Dehydrogenase CK Isoenzymes CK-MM (CK-3) CK-MB (CK-2) CK-BB (CK-1) Macro CK Troponin I Total Protein Albumin Globulin Albumin/Globulin Ratio Acetaminophen Hepatitis A IgM Ab Hep Bs Antigen Hep Bs Antibody Hep B Core IgM Ab Hepatitis Be Antigen Hepatitis C Ab (EIA) HIV 1&2 Antibody Miscellaneous Test POC Glucose 78 79 10/07/18 10/07/18 10/07/18 09:19 09:25 09:25 WBC 17.4 H Corrected WBC RBC 2.82 L Hgb 8.6 L Hct 26.5 L MCV 94.0 MCH 30.5 MCHC 32.5 RDW 14.8 H RDW Differential 50.6 H Plt Count 193 MPV 12.1 H Neut % (Auto) Not Reportable Absolute Neuts (auto) 16.4 H Absolute Lymphs (auto) 0.70 L Total Counted 100 Neutrophils % (Manual) 49 Band Neutrophils % 45 H Lymphocytes % (Manual) 4 L Monocytes % (Manual) 2 Metamyelocytes % Nucleated RBC % 0.3 Nucleated RBCs/100 WBC Differential Comment Diff Path Review May foll Toxic Granulation Platelet Estimate ADEQUATE RBC Morphology Hypochromasia 1+ Anisocytosis 2+ Absolute Retic 0.05 Eos Smear Total Cells PT INR APTT Specimen Type ART Sample Site R Radial pH 7.27 L Bicarbonate Actual 16.3 L POC Total CO2 17 Base Excess -11 L O2 Saturation 99 O2 % ABG pCO2 35.9 ABG pO2 130 H Armond Test Respiration Rate O2 Delivery Device Nasal Can Liter Flow 9.0 EPAP IPAP Blood Gas Notified Whom [facility] Blood Gas Notified Time 917 Sodium Potassium Chloride Carbon Dioxide Anion Gap BUN Creatinine Estim Creat Clear Calc Est GFR (MDRD) Af Amer Est GFR (MDRD) Non-Af BUN/Creatinine Ratio Glucose Lactic Acid 5.5 H* Calcium Phosphorus Magnesium Total Bilirubin Direct Bilirubin AST ALT Alkaline Phosphatase Ammonia Lactate Dehydrogenase CK Isoenzymes CK-MM (CK-3) CK-MB (CK-2) CK-BB (CK-1) Macro CK Troponin I Total Protein Albumin Globulin Albumin/Globulin Ratio Acetaminophen Hepatitis A IgM Ab Hep Bs Antigen Hep Bs Antibody Hep B Core IgM Ab Hepatitis Be Antigen Hepatitis C Ab (EIA) HIV 1&2 Antibody Miscellaneous Test POC Glucose 10/07/18 10/07/18 10/07/18 09:25 09:25 09:57 WBC Corrected WBC RBC Hgb Hct MCV MCH MCHC RDW RDW Differential Plt Count MPV Neut % (Auto) Absolute Neuts (auto) Absolute Lymphs (auto) Total Counted Neutrophils % (Manual) Band Neutrophils % Lymphocytes % (Manual) Monocytes % (Manual) Metamyelocytes % Nucleated RBC % Nucleated RBCs/100 WBC Differential Comment Diff Path Review Toxic Granulation Platelet Estimate RBC Morphology Hypochromasia Anisocytosis Absolute Retic Eos Smear Total Cells PT INR APTT Specimen Type Sample Site pH Bicarbonate Actual POC Total CO2 Base Excess O2 Saturation O2 % ABG pCO2 ABG pO2 Armond Test Respiration Rate O2 Delivery Device Liter Flow EPAP IPAP Blood Gas Notified Whom Blood Gas Notified Time Sodium Potassium Chloride Carbon Dioxide Anion Gap BUN Creatinine Estim Creat Clear Calc Est GFR (MDRD) Af Amer Est GFR (MDRD) Non-Af BUN/Creatinine Ratio Glucose Lactic Acid Calcium Phosphorus Magnesium Total Bilirubin 1.00 Direct Bilirubin 0.62 H AST 9291 H ALT 2429 H Alkaline Phosphatase 76 Ammonia Lactate Dehydrogenase > 4000 H CK Isoenzymes CK-MM (CK-3) CK-MB (CK-2) CK-BB (CK-1) Macro CK Troponin I 0.020 Total Protein 4.9 L Albumin 2.0 L Globulin 2.9 Albumin/Globulin Ratio Acetaminophen Hepatitis A IgM Ab Hep Bs Antigen Hep Bs Antibody Hep B Core IgM Ab Hepatitis Be Antigen Hepatitis C Ab (EIA) HIV 1&2 Antibody Miscellaneous Test POC Glucose 66 L 10/07/18 10/07/18 10/07/18 12:05 12:05 12:05 WBC Corrected WBC RBC Hgb Hct MCV MCH MCHC RDW RDW Differential Plt Count MPV Neut % (Auto) Absolute Neuts (auto) Absolute Lymphs (auto) Total Counted Neutrophils % (Manual) Band Neutrophils % Lymphocytes % (Manual) Monocytes % (Manual) Metamyelocytes % Nucleated RBC % Nucleated RBCs/100 WBC Differential Comment Diff Path Review Toxic Granulation Platelet Estimate RBC Morphology Hypochromasia Anisocytosis Absolute Retic Eos Smear Total Cells PT INR APTT Specimen Type Sample Site pH Bicarbonate Actual POC Total CO2 Base Excess O2 Saturation O2 % ABG pCO2 ABG pO2 Armond Test Respiration Rate O2 Delivery Device Liter Flow EPAP IPAP Blood Gas Notified Whom Blood Gas Notified Time Sodium Potassium Chloride Carbon Dioxide Anion Gap BUN Creatinine Estim Creat Clear Calc Est GFR (MDRD) Af Amer Est GFR (MDRD) Non-Af BUN/Creatinine Ratio Glucose Lactic Acid Calcium Phosphorus Magnesium Total Bilirubin Direct Bilirubin AST ALT Alkaline Phosphatase Ammonia Lactate Dehydrogenase CK Isoenzymes CK-MM (CK-3) CK-MB (CK-2) CK-BB (CK-1) Macro CK Troponin I Total Protein Albumin Globulin Albumin/Globulin Ratio Acetaminophen Hepatitis A IgM Ab Pending Hep Bs Antigen Hep Bs Antibody Hep B Core IgM Ab Hepatitis Be Antigen Pending Hepatitis C Ab (EIA) Pending HIV 1&2 Antibody Non-Reactive Miscellaneous Test Pending POC Glucose 10/07/18 10/07/18 10/07/18 12:05 13:00 14:38 WBC Corrected WBC RBC Hgb Hct MCV MCH MCHC RDW RDW Differential Plt Count MPV Neut % (Auto) Absolute Neuts (auto) Absolute Lymphs (auto) Total Counted Neutrophils % (Manual) Band Neutrophils % Lymphocytes % (Manual) Monocytes % (Manual) Metamyelocytes % Nucleated RBC % Nucleated RBCs/100 WBC Differential Comment Diff Path Review Toxic Granulation Platelet Estimate RBC Morphology Hypochromasia Anisocytosis Absolute Retic Eos Smear Total Cells PT 20.4 H INR 1.7 APTT 42.8 H Specimen Type Sample Site pH Bicarbonate Actual POC Total CO2 Base Excess O2 Saturation O2 % ABG pCO2 ABG pO2 Armond Test Respiration Rate O2 Delivery Device Liter Flow EPAP IPAP Blood Gas Notified Whom Blood Gas Notified Time Sodium Potassium Chloride Carbon Dioxide Anion Gap BUN Creatinine Estim Creat Clear Calc Est GFR (MDRD) Af Amer Est GFR (MDRD) Non-Af BUN/Creatinine Ratio Glucose Lactic Acid Calcium Phosphorus Magnesium Total Bilirubin Direct Bilirubin AST ALT Alkaline Phosphatase Ammonia Lactate Dehydrogenase CK Isoenzymes CK-MM (CK-3) CK-MB (CK-2) CK-BB (CK-1) Macro CK Troponin I Total Protein Albumin Globulin Albumin/Globulin Ratio Acetaminophen 2.7 L Hepatitis A IgM Ab Hep Bs Antigen Hep Bs Antibody Hep B Core IgM Ab Hepatitis Be Antigen Hepatitis C Ab (EIA) HIV 1&2 Antibody Miscellaneous Test POC Glucose 74 10/07/18 10/07/18 10/07/18 16:05 16:34 16:46 WBC Corrected WBC RBC Hgb Hct MCV MCH MCHC RDW RDW Differential Plt Count MPV Neut % (Auto) Absolute Neuts (auto) Absolute Lymphs (auto) Total Counted Neutrophils % (Manual) Band Neutrophils % Lymphocytes % (Manual) Monocytes % (Manual) Metamyelocytes % Nucleated RBC % Nucleated RBCs/100 WBC Differential Comment Diff Path Review Toxic Granulation Platelet Estimate RBC Morphology Hypochromasia Anisocytosis Absolute Retic Eos Smear Total Cells PT INR APTT Specimen Type Sample Site pH Bicarbonate Actual POC Total CO2 Base Excess O2 Saturation O2 % ABG pCO2 ABG pO2 Armond Test Respiration Rate O2 Delivery Device Liter Flow EPAP IPAP Blood Gas Notified Whom Blood Gas Notified Time Sodium Potassium Chloride Carbon Dioxide Anion Gap BUN Creatinine Estim Creat Clear Calc Est GFR (MDRD) Af Amer Est GFR (MDRD) Non-Af BUN/Creatinine Ratio Glucose Lactic Acid 8.7 H* Calcium Phosphorus Magnesium Total Bilirubin Direct Bilirubin AST ALT Alkaline Phosphatase Ammonia Lactate Dehydrogenase CK Isoenzymes CK-MM (CK-3) CK-MB (CK-2) CK-BB (CK-1) Macro CK Troponin I Total Protein Albumin Globulin Albumin/Globulin Ratio Acetaminophen Hepatitis A IgM Ab Hep Bs Antigen Hep Bs Antibody Hep B Core IgM Ab Hepatitis Be Antigen Hepatitis C Ab (EIA) HIV 1&2 Antibody Miscellaneous Test POC Glucose 27 L* 145 H 1110/07/18 10/07/18 17:26 17:41 17:57 WBC Corrected WBC RBC Hgb Hct MCV MCH MCHC RDW RDW Differential Plt Count MPV Neut % (Auto) Absolute Neuts (auto) Absolute Lymphs (auto) Total Counted Neutrophils % (Manual) Band Neutrophils % Lymphocytes % (Manual) Monocytes % (Manual) Metamyelocytes % Nucleated RBC % Nucleated RBCs/100 WBC Differential Comment Diff Path Review Toxic Granulation Platelet Estimate RBC Morphology Hypochromasia Anisocytosis Absolute Retic Eos Smear Total Cells PT INR APTT Specimen Type ART Sample Site L Brachial pH 7.24 L Bicarbonate Actual 14.7 L POC Total CO2 16 Base Excess -13 L O2 Saturation 92 L O2 % 25 ABG pCO2 34.5 L ABG pO2 74 L Armond Test NA Respiration Rate 16 O2 Delivery Device Bi / C PAP Liter Flow EPAP 6 IPAP 15 Blood Gas Notified Whom ICU MD Blood Gas Notified Time 1740 Sodium Potassium Chloride Carbon Dioxide Anion Gap BUN Creatinine Estim Creat Clear Calc Est GFR (MDRD) Af Amer Est GFR (MDRD) Non-Af BUN/Creatinine Ratio Glucose Lactic Acid Calcium Phosphorus Magnesium Total Bilirubin Direct Bilirubin AST ALT Alkaline Phosphatase Ammonia Lactate Dehydrogenase CK Isoenzymes CK-MM (CK-3) CK-MB (CK-2) CK-BB (CK-1) Macro CK Troponin I Total Protein Albumin Globulin Albumin/Globulin Ratio Acetaminophen Hepatitis A IgM Ab Hep Bs Antigen Hep Bs Antibody Hep B Core IgM Ab Hepatitis Be Antigen Hepatitis C Ab (EIA) HIV 1&2 Antibody Miscellaneous Test POC Glucose 125 H 111 H 10/07/18 10/07/18 10/07/18 18:36 19:10 20:17 WBC Corrected WBC RBC Hgb Hct MCV MCH MCHC RDW RDW Differential Plt Count MPV Neut % (Auto) Absolute Neuts (auto) Absolute Lymphs (auto) Total Counted Neutrophils % (Manual) Band Neutrophils % Lymphocytes % (Manual) Monocytes % (Manual) Metamyelocytes % Nucleated RBC % Nucleated RBCs/100 WBC Differential Comment Diff Path Review Toxic Granulation Platelet Estimate RBC Morphology Hypochromasia Anisocytosis Absolute Retic Eos Smear Total Cells PT INR APTT Specimen Type Sample Site pH Bicarbonate Actual POC Total CO2 Base Excess O2 Saturation O2 % ABG pCO2 ABG pO2 Armond Test Respiration Rate O2 Delivery Device Liter Flow EPAP IPAP Blood Gas Notified Whom Blood Gas Notified Time Sodium 139 Potassium 4.8 Chloride 103 Carbon Dioxide 14.0 L Anion Gap 22 H BUN 43 H Creatinine 4.21 H Estim Creat Clear Calc 8.90 Est GFR (MDRD) Af Amer 13 L Est GFR (MDRD) Non-Af 11 L BUN/Creatinine Ratio 10.2 Glucose 308 H Lactic Acid Calcium 5.8 L* Phosphorus 7.1 H Magnesium 1.9 Total Bilirubin Direct Bilirubin AST ALT Alkaline Phosphatase Ammonia Lactate Dehydrogenase CK Isoenzymes CK-MM (CK-3) CK-MB (CK-2) CK-BB (CK-1) Macro CK Troponin I Total Protein Albumin Globulin Albumin/Globulin Ratio Acetaminophen Hepatitis A IgM Ab Hep Bs Antigen Hep Bs Antibody Hep B Core IgM Ab Hepatitis Be Antigen Hepatitis C Ab (EIA) HIV 1&2 Antibody Miscellaneous Test POC Glucose 80 92 10/07/18 10/07/18 10/07/18 20:17 20:23 20:53 WBC Corrected WBC RBC Hgb Hct MCV MCH MCHC RDW RDW Differential Plt Count MPV Neut % (Auto) Absolute Neuts (auto) Absolute Lymphs (auto) Total Counted Neutrophils % (Manual) Band Neutrophils % Lymphocytes % (Manual) Monocytes % (Manual) Metamyelocytes % Nucleated RBC % Nucleated RBCs/100 WBC Differential Comment Diff Path Review Toxic Granulation Platelet Estimate RBC Morphology Hypochromasia Anisocytosis Absolute Retic Eos Smear Total Cells PT INR APTT Specimen Type Sample Site pH Bicarbonate Actual POC Total CO2 Base Excess O2 Saturation O2 % ABG pCO2 ABG pO2 Armond Test Respiration Rate O2 Delivery Device Liter Flow EPAP IPAP Blood Gas Notified Whom Blood Gas Notified Time Sodium Potassium Chloride Carbon Dioxide Anion Gap BUN Creatinine Estim Creat Clear Calc Est GFR (MDRD) Af Amer Est GFR (MDRD) Non-Af BUN/Creatinine Ratio Glucose Lactic Acid Calcium Phosphorus Magnesium Total Bilirubin Direct Bilirubin AST ALT Alkaline Phosphatase Ammonia 52.0 H Lactate Dehydrogenase CK Isoenzymes CK-MM (CK-3) CK-MB (CK-2) CK-BB (CK-1) Macro CK Troponin I Total Protein Albumin Globulin Albumin/Globulin Ratio Acetaminophen Hepatitis A IgM Ab Hep Bs Antigen Hep Bs Antibody Hep B Core IgM Ab Hepatitis Be Antigen Hepatitis C Ab (EIA) HIV 1&2 Antibody Miscellaneous Test POC Glucose 74 67 L 10/07/18 10/07/18 10/07/18 21:18 22:33 23:21 WBC Corrected WBC RBC Hgb Hct MCV MCH MCHC RDW RDW Differential Plt Count MPV Neut % (Auto) Absolute Neuts (auto) Absolute Lymphs (auto) Total Counted Neutrophils % (Manual) Band Neutrophils % Lymphocytes % (Manual) Monocytes % (Manual) Metamyelocytes % Nucleated RBC % Nucleated RBCs/100 WBC Differential Comment Diff Path Review Toxic Granulation Platelet Estimate RBC Morphology Hypochromasia Anisocytosis Absolute Retic Eos Smear Total Cells PT INR APTT Specimen Type Sample Site pH Bicarbonate Actual POC Total CO2 Base Excess O2 Saturation O2 % ABG pCO2 ABG pO2 Armond Test Respiration Rate O2 Delivery Device Liter Flow EPAP IPAP Blood Gas Notified Whom Blood Gas Notified Time Sodium Potassium Chloride Carbon Dioxide Anion Gap BUN Creatinine Estim Creat Clear Calc Est GFR (MDRD) Af Amer Est GFR (MDRD) Non-Af BUN/Creatinine Ratio Glucose Lactic Acid Calcium Phosphorus Magnesium Total Bilirubin Direct Bilirubin AST ALT Alkaline Phosphatase Ammonia Lactate Dehydrogenase CK Isoenzymes CK-MM (CK-3) CK-MB (CK-2) CK-BB (CK-1) Macro CK Troponin I Total Protein Albumin Globulin Albumin/Globulin Ratio Acetaminophen Hepatitis A IgM Ab Hep Bs Antigen Hep Bs Antibody Hep B Core IgM Ab Hepatitis Be Antigen Hepatitis C Ab (EIA) HIV 1&2 Antibody Miscellaneous Test POC Glucose 136 H 100 116 H 10/08/18 10/08/18 10/08/18 00:07 00:12 01:21 WBC Corrected WBC RBC Hgb Hct MCV MCH MCHC RDW RDW Differential Plt Count MPV Neut % (Auto) Absolute Neuts (auto) Absolute Lymphs (auto) Total Counted Neutrophils % (Manual) Band Neutrophils % Lymphocytes % (Manual) Monocytes % (Manual) Metamyelocytes % Nucleated RBC % Nucleated RBCs/100 WBC Differential Comment Diff Path Review Toxic Granulation Platelet Estimate RBC Morphology Hypochromasia Anisocytosis Absolute Retic Eos Smear Total Cells PT INR APTT Specimen Type ART Sample Site R Brachial pH 7.08 L* Bicarbonate Actual 14.4 L POC Total CO2 16 Base Excess -16 L O2 Saturation 99 O2 % 100 ABG pCO2 48.8 H ABG pO2 176 H Armond Test NA Respiration Rate O2 Delivery Device Bi / C PAP Liter Flow EPAP 6 IPAP Blood Gas Notified Whom [facility] Blood Gas Notified Time Sodium Potassium Chloride Carbon Dioxide Anion Gap BUN Creatinine Estim Creat Clear Calc Est GFR (MDRD) Af Amer Est GFR (MDRD) Non-Af BUN/Creatinine Ratio Glucose Lactic Acid Calcium Phosphorus Magnesium Total Bilirubin Direct Bilirubin AST ALT Alkaline Phosphatase Ammonia Lactate Dehydrogenase CK Isoenzymes CK-MM (CK-3) CK-MB (CK-2) CK-BB (CK-1) Macro CK Troponin I Total Protein Albumin Globulin Albumin/Globulin Ratio Acetaminophen Hepatitis A IgM Ab Hep Bs Antigen Hep Bs Antibody Hep B Core IgM Ab Hepatitis Be Antigen Hepatitis C Ab (EIA) HIV 1&2 Antibody Miscellaneous Test POC Glucose 112 H 96 10/08/18 10/08/18 10/08/18 02:08 03:08 04:36 WBC Corrected WBC RBC Hgb Hct MCV MCH MCHC RDW RDW Differential Plt Count MPV Neut % (Auto) Absolute Neuts (auto) Absolute Lymphs (auto) Total Counted Neutrophils % (Manual) Band Neutrophils % Lymphocytes % (Manual) Monocytes % (Manual) Metamyelocytes % Nucleated RBC % Nucleated RBCs/100 WBC Differential Comment Diff Path Review Toxic Granulation Platelet Estimate RBC Morphology Hypochromasia Anisocytosis Absolute Retic Eos Smear Total Cells PT INR APTT Specimen Type Sample Site pH Bicarbonate Actual POC Total CO2 Base Excess O2 Saturation O2 % ABG pCO2 ABG pO2 Armond Test Respiration Rate O2 Delivery Device Liter Flow EPAP IPAP Blood Gas Notified Whom Blood Gas Notified Time Sodium Potassium Chloride Carbon Dioxide Anion Gap BUN Creatinine Estim Creat Clear Calc Est GFR (MDRD) Af Amer Est GFR (MDRD) Non-Af BUN/Creatinine Ratio Glucose Lactic Acid Calcium Phosphorus Magnesium Total Bilirubin Direct Bilirubin AST ALT Alkaline Phosphatase Ammonia Lactate Dehydrogenase CK Isoenzymes CK-MM (CK-3) CK-MB (CK-2) CK-BB (CK-1) Macro CK Troponin I Total Protein Albumin Globulin Albumin/Globulin Ratio Acetaminophen Hepatitis A IgM Ab Hep Bs Antigen Hep Bs Antibody Hep B Core IgM Ab Hepatitis Be Antigen Hepatitis C Ab (EIA) HIV 1&2 Antibody Miscellaneous Test POC Glucose 111 H 88 75 10/08/18 10/08/18 10/08/18 04:40 04:40 04:40 WBC REPAIR [place] Corrected WBC 16.1 H RBC 2.41 L Hgb 7.5 L Hct 23.4 L MCV 97.1 MCH 31.1 MCHC 32.1 RDW 15.4 H RDW Differential 54.1 H Plt Count 84 L MPV 11.3 Neut % (Auto) Not Reportable Absolute Neuts (auto) 14.0 H Absolute Lymphs (auto) 1.13 Total Counted 100 Neutrophils % (Manual) 86 H Band Neutrophils % 1 Lymphocytes % (Manual) 7 L Monocytes % (Manual) 4 Metamyelocytes % 2 H Nucleated RBC % 3.1 Nucleated RBCs/100 WBC 6 H Differential Comment 2+ Diff Path Review May foll Toxic Granulation 2+ Platelet Estimate ADEQUATE RBC Morphology NORM C+C Hypochromasia Anisocytosis Absolute Retic 0.53 Eos Smear Total Cells PT 34.7 H INR 3.4 APTT 32.8 Specimen Type Sample Site pH Bicarbonate Actual POC Total CO2 Base Excess O2 Saturation O2 % ABG pCO2 ABG pO2 Armond Test Respiration Rate O2 Delivery Device Liter Flow EPAP IPAP Blood Gas Notified Whom Blood Gas Notified Time Sodium 136 Potassium 6.0 H* Chloride 92 L Carbon Dioxide 19.0 L Anion Gap 25 H BUN 43 H Creatinine 4.67 H Estim Creat Clear Calc 8.02 Est GFR (MDRD) Af Amer 12 L Est GFR (MDRD) Non-Af 10 L BUN/Creatinine Ratio 9.2 L Glucose 304 H Lactic Acid Calcium 6.2 L* Phosphorus 8.7 H Magnesium 2.1 Total Bilirubin 1.20 H Direct Bilirubin AST > 85703 H ALT 6714 H Alkaline Phosphatase 145 H Ammonia Lactate Dehydrogenase CK Isoenzymes CK-MM (CK-3) CK-MB (CK-2) CK-BB (CK-1) Macro CK Troponin I Total Protein 4.2 L Albumin 1.5 L Globulin 2.7 Albumin/Globulin Ratio 0.6 L Acetaminophen Hepatitis A IgM Ab Hep Bs Antigen Hep Bs Antibody Hep B Core IgM Ab Hepatitis Be Antigen Hepatitis C Ab (EIA) HIV 1&2 Antibody Miscellaneous Test POC Glucose 10/08/18 10/08/18 10/08/18 05:14 06:22 07:00 WBC Corrected WBC RBC Hgb Hct MCV MCH MCHC RDW RDW Differential Plt Count MPV Neut % (Auto) Absolute Neuts (auto) Absolute Lymphs (auto) Total Counted Neutrophils % (Manual) Band Neutrophils % Lymphocytes % (Manual) Monocytes % (Manual) Metamyelocytes % Nucleated RBC % Nucleated RBCs/100 WBC Differential Comment Diff Path Review Toxic Granulation Platelet Estimate RBC Morphology Hypochromasia Anisocytosis Absolute Retic Eos Smear Total Cells PT INR APTT Specimen Type Sample Site pH Bicarbonate Actual POC Total CO2 Base Excess O2 Saturation O2 % ABG pCO2 ABG pO2 Armond Test Respiration Rate O2 Delivery Device Liter Flow EPAP IPAP Blood Gas Notified Whom Blood Gas Notified Time Sodium Potassium Chloride Carbon Dioxide Anion Gap BUN Creatinine Estim Creat Clear Calc Est GFR (MDRD) Af Amer Est GFR (MDRD) Non-Af BUN/Creatinine Ratio Glucose Lactic Acid Calcium Phosphorus Magnesium Total Bilirubin Direct Bilirubin AST ALT Alkaline Phosphatase Ammonia Lactate Dehydrogenase CK Isoenzymes CK-MM (CK-3) CK-MB (CK-2) CK-BB (CK-1) Macro CK Troponin I Total Protein Albumin Globulin Albumin/Globulin Ratio Acetaminophen Hepatitis A IgM Ab Hep Bs Antigen Hep Bs Antibody Hep B Core IgM Ab Hepatitis Be Antigen Hepatitis C Ab (EIA) HIV 1&2 Antibody Miscellaneous Test POC Glucose 76 69 L 132 H Microbiology 10/05/18 04:10 Urine Catheter - Hall Urine Culture - Preliminary Culture exhibits no growth. Clinical Impression(s) from Imaging Studies Brain CT 10/07/18 07:35 IMPRESSION: Chronic involutional changes of the brain. Electronically Signed: Isidro Araujo MD at 8:58 EST Tel [phone], Service support , Abdomen/Pelvis CT 10/07/18 08:01 IMPRESSION: New small bilateral pleural effusions with underlying infiltration and/or atelectasis. Mildly distended fluid filled right hemicolon with mild degree of increased markings in the mesenteric fat in the right lower quadrant. Cholelithiasis. Electronically Signed: Isidro Araujo MD at 9:04 EST Tel [phone], Service support , KUB X-Ray 10/07/18 22:55 IMPRESSION: Enteric tube appears in good position. Continued air distention of bowel presumed cecum and ascending colon in the right mid abdomen. Electronically Signed: Luann Hughes MD at 0:30 EST , Service support , Medical Necessity - Tobacco Use Smoking Status: Former smoker Tobacco Use: Non-smoker Assessment/Plan All Active Problems (Last Reviewed 10/05/18 @ 13:56 by Wilda Alexis PA-C) BRENDA (acute kidney injury) (Acute) Myalgia (Acute) Abdominal distention (Acute) Hyponatremia (Acute) Respiratory failure with hypoxia (Acute) Encephalopathy (Acute) Hx of bladder repair surgery (Resolved) H/O: hysterectomy (Resolved) RECOMMENDATIONS: 1. Continue AVAPS 2. Continue with hemodialysis as scheduled 3. Repeat neurologic evaluation following hemodialysis 4. Family meeting later this morning 5. Initiate empiric steroid therapy and lactulose IMPRESSIONS: 1. Acute hypoxic respiratory failure Patient's ABG showing increased AA gradient. Patient remains on BiPAP therapy. There is not good correlation with pulse oximeter at this time. ABG showed adequate oxygenation, but significant acidosis that is mixed. 2. Mixed metabolic and respiratory acidosis secondary to renal and hepatic failure and lactic acidosis Unclear etiology of patient's hepatic failure. Patient is having significant elevation of transaminases, LDH and INR. 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 Patient did have multiple herbal medications brought in by family overnight. Patient's recently had a stroke and reportedly is not able to provide much information at this time. Bicarbonate drip initiated overnight. 3. Right-sided weakness Unknown last normal at this time. Patient reportedly has been decreased mental status and movement for the past 3 days. Patient was hypoglycemic initially and this has been corrected. Patient also has hyperkalemia and metabolic acidosis. Patient would not be a candidate for TPA. We will continue with addressing electrolyte abnormalities. 4. Metabolic encephalopathy/fulminant hepatitis/distributive shock Patient with multiple possible etiologies for metabolic encephalopathy including renal failure, fulminant hepatitis, hyperkalemia and possible acute hepatitis B. Patient does not have any nuchal rigidity. Patient appears to be in complete liver shutdown. Patient has been placed on empiric steroids and lactulose therapy. 5. Essential hypertension/CAD/atrophic right kidney/advanced age Complicates care, management, recovery and prognosis. Baseline medications have been held. 6. CODE STATUS Discussed with son and daughter at the bedside. Patient is a DNR Comfort Care arrest without intubation. Daughter wants a family meeting before any procedures such as central line or arterial line are initiated. Addendum 9:55 AM Discussion with family at the bedside about patient's current situation. Patient had 2 bags of her herbal medications that were reviewed. Patient's is unable to recall any dosage or usage patterns. They understand that the liver continues to fail leading to decreased mental status. After extensive review of the current options, risks and benefits, family has decided to pursue comfort measures. Patient will be given Ativan and morphine. After premedication, patient will be taken off of pressors and BiPAP. TIME: 80 minutes of critical care time spent addressing patient's acute hypoxic respiratory failure, metabolic acidosis, right-sided weakness, review of all data and collaboration with care team (7 AM to 8 AM, 8:30 AM to 10 AM) Code Visit Procedures: 28227 Critial Care Addl 30 Min [id number]: [id number] Critical care first hour
[2018-10-08 08:10] LABS: Hepatitis Be Ag Negative (Negative)
[2018-10-08 08:15] LABS: Bedside Glucose 110 mg/dL (70-110)
[2018-10-08 08:23] LABS: Hep C Antibodies 0.2 s/co ratio (0.0-0.9); Hepatitis A IgM Antibody Negative (Negative)
[2018-10-08 08:53] LABS: Pathologist Review Reviewed
[2018-10-08 09:11] LABS: Bedside Glucose 109 mg/dL (70-110)
--- NOTE | 2018-10-08 09:42 | CASEMGMT ---
Physician spoke w/multiple family members in room regarding pt and prognosis, RN and SW present. Family at this time has opted to make pt comfortable and withdraw care. Support offered to family, SW remains available for any support to family. LALO Anderson, HEAVY MACHINERY ASSEMBLER
--- NOTE | 2018-10-08 09:45 | NURSING ---
Dr Bernal, myself & GISSELLE Crowder, entered the room to speak with pt's family regarding grave prognosis. All questions were answered. Family is agreeable for comfort care and would like all medications stopped as well as BiPap removed & NG tube removed. Family reports to this RN they are waiting for one more family member to arrive and then they will discontinue care.
--- NOTE | 2018-10-08 10:00 | NURSING ---
Patient's blood pressue 69/47. Family informed that no medications have been discontinued yet and current care continues. Family does not want Levophed titrated up. Stated to family there is a possibility that pt may pass away while still on all these treatments prior to family member arriving. Family would like current care to continue and are hopeful the family member is able to make it before she passes.
--- NOTE | 2018-10-08 10:29 | NURSING ---
Assessments and blood sugars deferred d/t comfort care status and family does not want RN to disturb patient.
--- NOTE | 2018-10-08 10:29 | PCM.PN.ID ---
Patient Problems: Active and Suspected Problems (Last Reviewed 10/05/18 @ 13:56 by Wilda Alexis PA-C) BRENDA (acute kidney injury) (Acute) Myalgia (Acute) Abdominal distention (Acute) Hyponatremia (Acute) Respiratory failure with hypoxia (Acute) Encephalopathy (Acute) - Physical Exam Vital Signs Temp Pulse Resp BP Pulse Ox 98.7 F 58 L 27 H 84/49 L 99 10/08/18 04:00 10/08/18 09:00 10/08/18 09:00 10/08/18 09:00 10/08/18 00:00 Oxygen Flow Rate (L/min) 4 Oxygen Delivery Method Bi-pap Weight: 79.4 kg Body Mass Index (BMI) 28.6 Intake and Output for Last 24 Hours 10/06/18 10/07/18 10/08/18 23:59 23:59 23:59 Intake Total 200 / 200 633 / 633 2092.7 / 2092.7 Output Total 1100 / 1100 Balance 188 / 188 -467 / -467 2092.7 / 2092.7 Microbiology Past 72 Hours 10/05/18 04:10 Urine Culture - Final Urine Catheter - Hall Culture exhibits no growth. Laboratory Tests Past 24 Hrs 10/07/18 10/07/18 10/07/18 09:25 09:25 09:25 WBC Corrected WBC RBC Hgb Hct MCV MCH MCHC RDW RDW Differential Plt Count MPV Neut % (Auto) Absolute Neuts (auto) 16.4 H Absolute Lymphs (auto) 0.70 L Total Counted 100 Neutrophils % (Manual) 49 Band Neutrophils % 45 H Lymphocytes % (Manual) 4 L Monocytes % (Manual) 2 Metamyelocytes % Nucleated RBC % Nucleated RBCs/100 WBC Differential Comment Diff Path Review Reviewed Toxic Granulation Platelet Estimate ADEQUATE RBC Morphology Hypochromasia 1+ Anisocytosis 2+ Absolute Retic PT INR APTT Specimen Type Sample Site pH Bicarbonate Actual POC Total CO2 Base Excess O2 Saturation O2 % ABG pCO2 ABG pO2 Armond Test Respiration Rate O2 Delivery Device EPAP IPAP Blood Gas Notified Whom Blood Gas Notified Time Sodium Potassium Chloride Carbon Dioxide Anion Gap BUN Creatinine Estim Creat Clear Calc Est GFR (MDRD) Af Amer Est GFR (MDRD) Non-Af BUN/Creatinine Ratio Glucose Lactic Acid Calcium Phosphorus Magnesium Total Bilirubin 1.00 Direct Bilirubin 0.62 H AST 9291 H ALT 2429 H Alkaline Phosphatase 76 Ammonia Lactate Dehydrogenase > 4000 H Troponin I 0.020 Total Protein 4.9 L Albumin 2.0 L Globulin 2.9 Albumin/Globulin Ratio Acetaminophen Hepatitis A IgM Ab Hepatitis Be Antigen Hepatitis C Ab (EIA) HIV 1&2 Antibody Miscellaneous Test 10/07/18 10/07/18 10/07/18 12:05 12:05 12:05 WBC Corrected WBC RBC Hgb Hct MCV MCH MCHC RDW RDW Differential Plt Count MPV Neut % (Auto) Absolute Neuts (auto) Absolute Lymphs (auto) Total Counted Neutrophils % (Manual) Band Neutrophils % Lymphocytes % (Manual) Monocytes % (Manual) Metamyelocytes % Nucleated RBC % Nucleated RBCs/100 WBC Differential Comment Diff Path Review Toxic Granulation Platelet Estimate RBC Morphology Hypochromasia Anisocytosis Absolute Retic PT INR APTT Specimen Type Sample Site pH Bicarbonate Actual POC Total CO2 Base Excess O2 Saturation O2 % ABG pCO2 ABG pO2 Armond Test Respiration Rate O2 Delivery Device EPAP IPAP Blood Gas Notified Whom Blood Gas Notified Time Sodium Potassium Chloride Carbon Dioxide Anion Gap BUN Creatinine Estim Creat Clear Calc Est GFR (MDRD) Af Amer Est GFR (MDRD) Non-Af BUN/Creatinine Ratio Glucose Lactic Acid Calcium Phosphorus Magnesium Total Bilirubin Direct Bilirubin AST ALT Alkaline Phosphatase Ammonia Lactate Dehydrogenase Troponin I Total Protein Albumin Globulin Albumin/Globulin Ratio Acetaminophen Hepatitis A IgM Ab Negative Hepatitis Be Antigen Negative Hepatitis C Ab (EIA) 0.2 HIV 1&2 Antibody Non-Reactive Miscellaneous Test Pending 10/07/18 10/07/18 10/07/18 12:05 13:00 16:05 WBC Corrected WBC RBC Hgb Hct MCV MCH MCHC RDW RDW Differential Plt Count MPV Neut % (Auto) Absolute Neuts (auto) Absolute Lymphs (auto) Total Counted Neutrophils % (Manual) Band Neutrophils % Lymphocytes % (Manual) Monocytes % (Manual) Metamyelocytes % Nucleated RBC % Nucleated RBCs/100 WBC Differential Comment Diff Path Review Toxic Granulation Platelet Estimate RBC Morphology Hypochromasia Anisocytosis Absolute Retic PT 20.4 H INR 1.7 APTT 42.8 H Specimen Type Sample Site pH Bicarbonate Actual POC Total CO2 Base Excess O2 Saturation O2 % ABG pCO2 ABG pO2 Armond Test Respiration Rate O2 Delivery Device EPAP IPAP Blood Gas Notified Whom Blood Gas Notified Time Sodium Potassium Chloride Carbon Dioxide Anion Gap BUN Creatinine Estim Creat Clear Calc Est GFR (MDRD) Af Amer Est GFR (MDRD) Non-Af BUN/Creatinine Ratio Glucose Lactic Acid 8.7 H* Calcium Phosphorus Magnesium Total Bilirubin Direct Bilirubin AST ALT Alkaline Phosphatase Ammonia Lactate Dehydrogenase Troponin I Total Protein Albumin Globulin Albumin/Globulin Ratio Acetaminophen 2.7 L Hepatitis A IgM Ab Hepatitis Be Antigen Hepatitis C Ab (EIA) HIV 1&2 Antibody Miscellaneous Test 10/07/18 10/07/18 10/07/18 17:41 20:17 20:17 WBC Corrected WBC RBC Hgb Hct MCV MCH MCHC RDW RDW Differential Plt Count MPV Neut % (Auto) Absolute Neuts (auto) Absolute Lymphs (auto) Total Counted Neutrophils % (Manual) Band Neutrophils % Lymphocytes % (Manual) Monocytes % (Manual) Metamyelocytes % Nucleated RBC % Nucleated RBCs/100 WBC Differential Comment Diff Path Review Toxic Granulation Platelet Estimate RBC Morphology Hypochromasia Anisocytosis Absolute Retic PT INR APTT Specimen Type ART Sample Site L Brachial pH 7.24 L Bicarbonate Actual 14.7 L POC Total CO2 16 Base Excess -13 L O2 Saturation 92 L O2 % 25 ABG pCO2 34.5 L ABG pO2 74 L Armond Test NA Respiration Rate 16 O2 Delivery Device Bi / C PAP EPAP 6 IPAP 15 Blood Gas Notified Whom ICU Blood Gas Notified Time 1740 Sodium 139 Potassium 4.8 Chloride 103 Carbon Dioxide 14.0 L Anion Gap 22 H BUN 43 H Creatinine 4.21 H Estim Creat Clear Calc 8.90 Est GFR (MDRD) Af Amer 13 L Est GFR (MDRD) Non-Af 11 L BUN/Creatinine Ratio 10.2 Glucose 308 H Lactic Acid Calcium 5.8 L* Phosphorus 7.1 H Magnesium 1.9 Total Bilirubin Direct Bilirubin AST ALT Alkaline Phosphatase Ammonia 52.0 H Lactate Dehydrogenase Troponin I Total Protein Albumin Globulin Albumin/Globulin Ratio Acetaminophen Hepatitis A IgM Ab Hepatitis Be Antigen Hepatitis C Ab (EIA) HIV 1&2 Antibody Miscellaneous Test 10/08/18 10/08/18 10/08/18 00:07 04:40 04:40 WBC CLINICAL RESOURCE NURSE Corrected WBC 16.1 H RBC 2.41 L Hgb 7.5 L Hct 23.4 L MCV 97.1 MCH 31.1 MCHC 32.1 RDW 15.4 H RDW Differential 54.1 H Plt Count 84 L MPV 11.3 Neut % (Auto) Not Reportable Absolute Neuts (auto) 14.0 H Absolute Lymphs (auto) 1.13 Total Counted 100 Neutrophils % (Manual) 86 H Band Neutrophils % 1 Lymphocytes % (Manual) 7 L Monocytes % (Manual) 4 Metamyelocytes % 2 H Nucleated RBC % 3.1 Nucleated RBCs/100 WBC 6 H Differential Comment 2+ Diff Path Review May foll Toxic Granulation 2+ Platelet Estimate ADEQUATE RBC Morphology NORM C+C Hypochromasia Anisocytosis Absolute Retic 0.53 PT 34.7 H INR 3.4 APTT 32.8 Specimen Type ART Sample Site R Brachial pH 7.08 L* Bicarbonate Actual 14.4 L POC Total CO2 16 Base Excess -16 L O2 Saturation 99 O2 % 100 ABG pCO2 48.8 H ABG pO2 176 H Armond Test NA Respiration Rate O2 Delivery Device Bi / C PAP EPAP 6 IPAP Blood Gas Notified Whom HOSP MD Blood Gas Notified Time Sodium Potassium Chloride Carbon Dioxide Anion Gap BUN Creatinine Estim Creat Clear Calc Est GFR (MDRD) Af Amer Est GFR (MDRD) Non-Af BUN/Creatinine Ratio Glucose Lactic Acid Calcium Phosphorus Magnesium Total Bilirubin Direct Bilirubin AST ALT Alkaline Phosphatase Ammonia Lactate Dehydrogenase Troponin I Total Protein Albumin Globulin Albumin/Globulin Ratio Acetaminophen Hepatitis A IgM Ab Hepatitis Be Antigen Hepatitis C Ab (EIA) HIV 1&2 Antibody Miscellaneous Test 10/08/18 04:40 WBC Corrected WBC RBC Hgb Hct MCV MCH MCHC RDW RDW Differential Plt Count MPV Neut % (Auto) Absolute Neuts (auto) Absolute Lymphs (auto) Total Counted Neutrophils % (Manual) Band Neutrophils % Lymphocytes % (Manual) Monocytes % (Manual) Metamyelocytes % Nucleated RBC % Nucleated RBCs/100 WBC Differential Comment Diff Path Review Toxic Granulation Platelet Estimate RBC Morphology Hypochromasia Anisocytosis Absolute Retic PT INR APTT Specimen Type Sample Site pH Bicarbonate Actual POC Total CO2 Base Excess O2 Saturation O2 % ABG pCO2 ABG pO2 Armond Test Respiration Rate O2 Delivery Device EPAP IPAP Blood Gas Notified Whom Blood Gas Notified Time Sodium 136 Potassium 6.0 H* Chloride 92 L Carbon Dioxide 19.0 L Anion Gap 25 H BUN 43 H Creatinine 4.67 H Estim Creat Clear Calc 8.02 Est GFR (MDRD) Af Amer 12 L Est GFR (MDRD) Non-Af 10 L BUN/Creatinine Ratio 9.2 L Glucose 304 H Lactic Acid Calcium 6.2 L* Phosphorus 8.7 H Magnesium 2.1 Total Bilirubin 1.20 H Direct Bilirubin AST > 10113 H ALT 6714 H Alkaline Phosphatase 145 H Ammonia Lactate Dehydrogenase Troponin I Total Protein 4.2 L Albumin 1.5 L Globulin 2.7 Albumin/Globulin Ratio 0.6 L Acetaminophen Hepatitis A IgM Ab Hepatitis Be Antigen Hepatitis C Ab (EIA) HIV 1&2 Antibody Miscellaneous Test POC Glucose 10/08/18 10/08/18 10/08/18 09:06 07:58 07:00 POC Glucose 109 110 132 H 10/08/18 10/08/18 10/08/18 06:22 05:14 04:36 POC Glucose 69 L 76 75 10/08/18 10/08/18 10/08/18 03:08 02:08 01:21 POC Glucose 88 111 H 96 10/08/18 10/07/18 10/07/18 00:12 23:21 22:33 POC Glucose 112 H 116 H 100 10/07/18 10/07/18 10/07/18 21:18 20:53 20:23 POC Glucose 136 H 67 L 74 10/07/18 10/07/18 10/07/18 19:10 18:36 17:57 POC Glucose 92 80 111 H 10/07/18 10/07/18 10/07/18 17:26 16:46 16:34 POC Glucose 125 H 145 H 27 L* 10/07/18 14:38 POC Glucose 74 Medical Necessity - Tobacco Use Smoking Status: Former smoker Tobacco Use: Non-smoker Route of nutrition/ use of supplements: [] Nutritional Intake: [] IV Site: [] Hall Catheter: [] - Assessment/Plan Antibiotics: [] Assessment/Plan: [] Active and Suspected Problems (Last Reviewed 10/05/18 @ 13:56 by Wilda Alexis PA-C) BRENDA (acute kidney injury) (Acute) Myalgia (Acute) Abdominal distention (Acute) Hyponatremia (Acute) Respiratory failure with hypoxia (Acute) Fulminant liver failure with BRENDA - AST 70 on arrival, AST was normal. Hep B core IgM was (+), neg Ag and Ab. AST now over 20,000. Hep A neg, hep C neg, hep Be Ag neg. Hep B pcr was sent, hopefully. Given rapid onset of liver failure, ratio of ALT/AST, and low risk for exposure to hep B, I think hep B is an unlikely explanation. Pt was taking 10 different supplements in the hospital that had been brought in by family. Would recommend sending report to FDA at www.safetyreporting.hhs.gov and would have family consider autopsy. Pt to be made Comfort Care once all family members arrive. D/w Dr. Bernal and Dr. Scott.
--- NOTE | 2018-10-08 10:54 | NURSING ---
Pt noted to be asystole on the monitor. This RN & Bridger, RN into room, family is present. No heart beat, no respirations. Time of 1054.
--- NOTE | 2018-10-08 12:04 | CHAPLAIN ---
Type of Pastoral Visit ___ Initial Visit ___ Follow-up Visit ___ On-call Visit ___ General Patient Visit ___ Spiritual Assessment ___ Family Conference _x__ Bereavement ___ Rapid Response ___ Code Blue ___ Other (describe below) Pastoral Care Referral From ___ Patient _x__ Family _x__ Nurse ___ Physician ___ Special Machine Stitcher ___ Vallez Filter Operator _x Technical Support Specialist - Other (describe below) Sacrament/Intervention ___ Active listening ___ Anointing ___ Restorationism _x__ Bereavement ___ Communion ___ Samara exploration ___ _x__ Life review _x__ Prayer ___ Reconciliation ___ Sacrament of Sick _x__ Supportive presence ___ Wedding ___ Other (describe below) Pastoral Comments request to see this patient due to impending ; entered room with many family members; offered scripture and prayer as accepted by family; time of silence; opened up question to family to describe patient and the things that she enjoyed; several family members spoke up and shared special activities of patient; left room to meet with spouse of patient and others in waiting area; RN came to request presence of correctional medicine physician in patient room as she had just ; remained with family members to offer support; was present when DR came to talk with family; left the area as family is grieving appropriately; offer to return as needed
[2018-10-09 10:08] LABS: Pathologist Review Reviewed
--- NOTE | 2018-10-09 10:40 | PCM.DEATH ---
Preliminary Cause of Non-cardiogenic shock secondary to fulminant acute liver failure Date of Admission: 10/04/18 Date of : 10/08/18 - Principle Diagnosis #1 acute renal failure #2 acute fulminant liver failure-etiology unclear #3 non-cardiogenic shock secondary to acute liver failure and acute renal failure #4 acute hypoxic respiratory failure secondary to non-cardiogenic shock with metabolic acidosis #5 metabolic acidosis secondary to acute renal failure and acute fulminant liver failure #6 acute hepatitis B #7 metabolic encephalopathy secondary to acute renal failure and acute liver failure #8 essential hypertension #9 atherosclerotic heart disease #10 lactic acidosis secondary to acute fulminant liver failure and acute renal failure #11 new onset atrial fibrillation #12 hyperlipidemia Hospital Course This 83-year-old white female was seen in the emergency room at [facility] with chief complaint of generalized weakness. She also complained of nausea and vomiting. Patient also complained of right-sided back pain. Workup in the emergency room included a chest x-ray which showed chronic changes in left lower lobe atelectasis, EKG showed a normal sinus rhythm at 58 with no signs of ischemia. White count was elevated at 15.7, BUN was 94 and creatinine was 8. Liver enzymes showed a slight elevation of AST at 70. Patient was admitted to [place] [address], she was seen in consultation by nephrology, she underwent an MRI of the brain due to some confusion the patient was having, this MRI of the brain was unremarkable, she had a temporary dialysis catheter inserted and underwent dialysis starting on 10/05/18. The following day on 10/06/18, patient became lethargic after her dialysis was carried out, this was felt to be secondary to the effects of the stress of the dialysis. However, that evening, patient became more comatose and her respirations increased and she was seen by the night hospitalist and labs were obtained which showed her to be acidotic. The following morning on 10/07/18, patient's respirations increased and additional labs were obtained and the patient was seen by critical care who felt he was she was acidotic and required BiPAP and the patient was moved to ICU. Labs obtained that morning showed severe elevations in liver enzymes, her hepatitis B IgM resulted positive which was a possible. Infectious diseases saw the patient and did not feel she had sepsis but recommended antibiotics be administered. Patient's lactic acid elevated and this was felt to be secondary to fulminant liver failure. Discussions were carried out with family members who did not want the patient intubated but initially requested aggressive care. The following day, patient's labs were repeated and showed further deterioration of her liver functions with very high elevations of her AST. Patient's respirations became labored and the family requested hospice consultation. Hospice saw the patient on 10/08/18, she was made comfort care, and shortly after. Family requested an autopsy but the patient was not a band singer's case and the family then did not feel they want to to pay for an autopsy. Patient was pronounced on 10/08/18. Code Visit Inpatient E&M: 93884 Disch Hosp
--- NOTE | 2018-10-09 10:55 | EXP.PCM_ITS ---
Preliminary Cause of Non-cardiogenic shock secondary to fulminant acute liver failure Date of Admission: 10/04/18 Date of : 10/08/18 - Principle Diagnosis #1 acute renal failure #2 acute fulminant liver failure-etiology unclear #3 non-cardiogenic shock secondary to acute liver failure and acute renal failure #4 acute hypoxic respiratory failure secondary to non-cardiogenic shock with metabolic acidosis #5 metabolic acidosis secondary to acute renal failure and acute fulminant liver failure #6 acute hepatitis B #7 metabolic encephalopathy secondary to acute renal failure and acute liver failure #8 essential hypertension #9 atherosclerotic heart disease #10 lactic acidosis secondary to acute fulminant liver failure and acute renal failure #11 new onset atrial fibrillation #12 hyperlipidemia Hospital Course This 83-year-old white female was seen in the emergency room at [facility] with chief complaint of generalized weakness. She also complained of nausea and vomiting. Patient also complained of right-sided back pain. Workup in the emergency room included a chest x-ray which showed chronic changes in left lower lobe atelectasis, EKG showed a normal sinus rhythm at 58 with no signs of ischemia. White count was elevated at 15.7, BUN was 94 and creatinine was 8. Liver enzymes showed a slight elevation of AST at 70. Patient was admitted to [place] [id number], she was seen in consultation by nephrology, she underwent an MRI of the brain due to some confusion the patient was having, this MRI of the brain was unremarkable, she had a temporary dialysis catheter inserted and underwent dialysis starting on 10/05/18. The following day on 10/06/18, patient became lethargic after her dialysis was carried out, this was felt to be secondary to the effects of the stress of the dialysis. However, that evening, patient became more comatose and her respirations increased and she was seen by the night hospitalist and labs were obtained which showed her to be acidotic. The following morning on 10/07/18, patient's respirations increased and additional labs were obtained and the patient was seen by critical care who felt he was she was acidotic and required BiPAP and the patient was moved to ICU. Labs obtained that morning showed severe elevations in liver enzymes, her hepatitis B IgM resulted positive which was a possible. Infectious diseases saw the patient and did not feel she had sepsis but recommended antibiotics be administered. Patient's lactic acid elevated and this was felt to be secondary to fulminant liver failure. Discussions were carried out with family members who did not want the patient intubated but initially requested aggressive care. The following day, patient's labs were repeated and showed further deterioration of her liver functions with very high elevations of her AST. Patient's respirations became labored and the family requested hospice consultation. Hospice saw the patient on 10/08/18, she was made comfort care, and shortly after. Family requested an autopsy but the patient was not a storage manager's case and the family then did not feel they want to to pay for an autopsy. Patient was pronounced on 10/08/18. Code Visit Inpatient E&M: 17082 Disch Hosp
== END 2018-10-08 10:54 | DRG 682 ==
LOC: ED 08:51 → MS3 10:09 → ICU 10-07 10:09
PROVIDERS: Hospitalist; Internal Medicine; Internal Medicine Critical Care Medicine; Internal Medicine Infectious Disease; Internal Medicine Nephrology; Emergency Provider Emergency Medicine; Family Provider Family Medicine; PCP Family Medicine; Visit Provider Internal Medicine
DX: N17.9 Acute kidney failure, unspecified (principal); G93.41 Metabolic encephalopathy; J96.01 Acute respiratory failure with hypoxia; K72.00 Acute and subacute hepatic failure without coma; E87.1 Hypo-osmolality and hyponatremia; B16.9 Acute hepatitis B without delta-agent and without hepatic coma; E87.2 Acidosis; Z86.79 Personal history of other diseases of the circulatory system; Z87.891 Personal history of nicotine dependence; I10 Essential (primary) hypertension; I48.91 Unspecified atrial fibrillation; E78.5 Hyperlipidemia, unspecified; R57.8 Other shock; I25.10 Atherosclerotic heart disease of native coronary artery without angina pectoris; Z51.5 Encounter for palliative care; Z66 Do not resuscitate; E87.5 Hyperkalemia; N26.1 Atrophy of kidney (terminal); Z90.710 Acquired absence of both cervix and uterus
CPT/HCPCS: 36415; 36600; 70450; 70551; 71045; 71046; 74018; 74176; 76770; 80048; 80053; 80076; 80329; 81001; 82140; 82436; 82550; 82552; 82570; 82803; 82962; 83605; 83615; 83735; 83930; 83935; 84100; 84133; 84156; 84300; 84484; 84540; 85025; 85610; 85730; 86703; 86705; 86706; 86709; 86803; 87040; 87086; 87205; 87340; 87350; 90937; 93005; 94002; 94003; 95819; 97162; 97165; 99283; J7030; J7040; J7050; A4216; C1752; G0257; G0480; J0610; J2405